=== PATIENT | female | born 1950 | race Caucasian/White ===

== ENCOUNTER → 2017-07-13 12:39 | Outpatient (CLI) | payer MEDICARE, MEDICAID, SELFPAY ==
[2017-07-13 13:20] VITALS: PULSE 63; PULSE 66
--- NOTE | 2017-07-13 14:50 | CT_ITS ---
EXAM: CT LUNG LOW DOSE WO CONTRAST COMPARISON: None HISTORY: Asymptomatic 67-year-old female with 50 pack-year smoking history ORDERING PHYSICIAN: Damion Abel MD PATIENT AGE: 67 years TECHNIQUE: The exam was performed on a GE Light Speed [address] scanner using 2.94 mGy CTDI. A low dose helical CT CHEST was performed on a multi-detector scanner The LDCT was performed in a facility that meets the criteria for the screening program. Data regarding this exam was submitted to ACR which is an approved registry. The order for this exam indicates that it came as a result of a lung cancer screening counseling shard decision-making visit that included all the elements required of such a visit including smoking cessation. The radiologist interpreting this exam meets the [facility] criteria for the LDCT lung cancer screening program. The exam is reported using the Lung-RADS classification scale and reported to the ACR registry. NOTE: This study was performed for the specific purposes of lung cancer screening and is not an alternative to diagnostic chest CT. RADIATION DOSE: CTDI vol(CT dose Index-volume) = 2.94mG DLP (Dose Length Product) = 104.72 mGcm FINDINGS: Indeterminate or Suspicious Lung Nodules(Category3-4B): 5 mm ill-defined nodular opacity superior segment left lower lobe Indeterminate/Non-actionable Nodules(Category2): None Benign nodules(Category1)None LUNG PARENCHYMA Emphysema: Moderate centrilobular emphysematous changes Airways disease: Diffuse bronchial thickening consistent with obstructive chronic bronchitis Fibrosis: Scattered mild fibrotic changes OTHER ANATOMIC REGIONS Lymph Nodes: No enlarged lymph nodes evident. Scattered small nodes are present in the mediastinum and erika Pleura: Unremarkable Cardiac: Coronary artery calcifications OTHER FINDINGS: No other pertinent findings evident IMPRESSION: 1. Lung RADS Category: 3, probably benign 2. Other findings: Centrilobular emphysema with COPD Coronary artery disease RECOMMENDATIONS: 6 month LDCT follow-up
== END ==
PROVIDERS: Family Provider Family Medicine; PCP Family Medicine; Visit Provider Family Medicine
DX: Z87.891 Personal history of nicotine dependence (principal); Z12.2 Encounter for screening for malignant neoplasm of respiratory organs; F17.200 Nicotine dependence, unspecified, uncomplicated; J44.9 Chronic obstructive pulmonary disease, unspecified
CPT/HCPCS: 94060; 94640

== ENCOUNTER → 2017-07-16 10:35 | Outpatient (POV) | payer MEDICARE, MEDICAID, SELFPAY | PROVIDERS: Family Provider Family Medicine; PCP Family Medicine; Visit Provider Nurse Practitioner Acute Care | DX: Z00.00 Encounter for general adult medical examination without abnormal findings (principal) ==

== ENCOUNTER 2017-08-20 11:33 | Day surgery (SDC) | payer MEDICARE, MEDICAID, SELFPAY ==
[2017-08-14 14:46] VITALS: BMI 19.6
[2017-08-20] VITALS (7 sets, daily range): BP systolic 88–154; BP diastolic 58–94; PULSE 63–73; RESP 18–20; TEMP 36.6–37.2; O2SAT 94–98
--- NOTE | 2017-08-20 13:40 | P.PCN_ITS ---
[facility] Procedure Note Procedure Note:: Upper Endoscopy Procedure Report: Esophagogastroduodenoscopy with cold biopsies Endoscopost: Bora Regalado II, MD Referring Physician: Ziyad Abel MD Date of Procedure: August 20, 2017 Equipment: Olympus GIF 180 standard upper endoscope Sedation: MAC sedation Indications: Mrs. Tate is a 67-year-old female with dyspepsia and nausea. She did have panendoscopy with Dr. Juarez Gonzalez M.D. in 2016. The colonoscopy was not completed because of colonic spasticity. She does have chronic nausea which is worse in the mornings. She has COPD. She has some dyspepsia and epigastric abdominal pain. Procedure: Prior to the procedure, a history and physical exam was performed, and patient' s medications and allergies were reviewed. The risks, benefits and alternatives of the sedation and procedure were discussed with the patient. All questions were answered and informed consent was obtained. The patient was brought to the procedure room. Patient identification and proposed procedure were verified by the physician and the nurse. The patient was placed in a left lateral decubitus position and the scope was passed under direct vision. Throughout the procedure, the patient's blood pressure, pulse, and oxygen saturations were monitored continuously. The upper GI endoscopy was accomplished without difficulty. The patient tolerated the procedure well. Findings: The scope was passed directly into the upper esophagus and advanced to the third portion of the duodenum. The post bulbar duodenum and duodenal bulb were normal with normal mucosa and conniventes. The scope was withdrawn through a normal duodenal bulb and pylorus into the stomach. There was bile reflux with linear erythema of the antrum and body consistent with moderate linear reactive gastritis with some erosions. The remainder of the antrum, body and fundus of the stomach were grossly normal. Upon retroflexion there was no hiatal hernia. 2 biopsies were taken in the antrum and along the lesser curvature for histology to rule out gastritis and/or H pylori. The scope was then withdrawn into the esophagus. There was a serrated Z line. 2 biopsies were taken at the Z line to rule out intestinal metaplasia/Hendrix's. There were tertiary contractions and mild dysmotility. The remainder of the esophageal mucosa was normal. Impression: 1. Nonerosive GERD with mild esophageal dysmotility 2. Bile reflux with linear erosive reactive gastritis Plan: I do feel that the patient has functional dyspepsia. I would recommend promotility therapy (metoclopramide) as long as she does not have any former reaction or allergy. I will proceed with colonoscopy for further evaluation.
--- NOTE | 2017-08-20 13:59 | HMH.PROC ---
[facility] Procedure Note Procedure Note:: Colonoscopy Procedure Report: Colonoscopy with snare polypectomy Endoscopist: Bora Regalado II, MD Referring physician: Ziyad Abel MD Date of Procedure: August 20, 2017 Equipment: Olympus 180 variable stiffness pediatric colonoscope Sedation: MAC sedation Indication: Mrs. Tate is a 67-year-old female who is here for follow-up colonoscopy. She did undergo colonoscopy in 2016 (Dr. Juarez Gonzalez M.D.) which was not completed because of severe colonic spasticity. The patient does have some chronic obstipation/constipation and takes MiraLAX. She has had some chronic nausea. She reports no rectal bleeding or family history of colon cancer. She does have a history of colonic polyps. Procedure: Prior to the procedure, a history and physical exam was performed, and patient's medications and allergies were reviewed. The risks, benefits and alternatives of the sedation and procedure were discussed with the patient. All questions were answered and informed consent was obtained. The patient was brought to the procedure room. Patient identification and proposed procedure were verified by the physician and the nurse. The patient was placed in a left lateral decubitus position and the scope was passed under direct vision. Throughout the procedure, the patient's blood pressure, pulse, and oxygen saturations were monitored continuously. The colonoscopy was accomplished without difficulty. The patient tolerated the procedure well. Findings: On digital rectal examination there was normal rectal tone. There were no external hemorrhoids. The colonoscope was introduced through the anal canal to the rectum and advanced to the cecum. The ileocecal valve and appendiceal orifice were identified. The scope was advanced a short distance into the ileum which appeared grossly normal. The scope was then withdrawn into the colon. The cecum, ascending and transverse colon and mucosa were grossly normal. There were 2 diminutive 5 mm polyps in the descending colon removed via cold snare polypectomy. There were scattered diverticuli throughout the descending and sigmoid colon (LEFT colon). The rectum itself was normal. Upon retroflexion within the rectum there were grade 1 internal hemorrhoids. Impression: 1. Diminutive descending colon polyps ?2 2. Left-sided diverticulosis 3. Grade 1 internal hemorrhoids Plan: I will follow up the polyp pathology and recommend repeat colonoscopy again in 5-10 years based upon the polyp histology. I would encourage fiber supplementation on a long-term daily maintenance basis.
--- NOTE | 2017-08-20 14:02 | P.PCN_ITS ---
[facility] Procedure Note Procedure Note:: Colonoscopy Procedure Report: Colonoscopy with snare polypectomy Endoscopist: Bora Regalado II, MD Referring physician: Ziyad Abel MD Date of Procedure: August 20, 2017 Equipment: Olympus 180 variable stiffness pediatric colonoscope Sedation: MAC sedation Indication: Mrs. Tate is a 67-year-old female who is here for follow-up colonoscopy. She did undergo colonoscopy in 2016 (Dr. Juarez Gonzalez M.D.) which was not completed because of severe colonic spasticity. The patient does have some chronic obstipation/constipation and takes MiraLAX. She has had some chronic nausea. She reports no rectal bleeding or family history of colon cancer. She does have a history of colonic polyps. Procedure: Prior to the procedure, a history and physical exam was performed, and patient' s medications and allergies were reviewed. The risks, benefits and alternatives of the sedation and procedure were discussed with the patient. All questions were answered and informed consent was obtained. The patient was brought to the procedure room. Patient identification and proposed procedure were verified by the physician and the nurse. The patient was placed in a left lateral decubitus position and the scope was passed under direct vision. Throughout the procedure, the patient's blood pressure, pulse, and oxygen saturations were monitored continuously. The colonoscopy was accomplished without difficulty. The patient tolerated the procedure well. Findings: On digital rectal examination there was normal rectal tone. There were no external hemorrhoids. The colonoscope was introduced through the anal canal to the rectum and advanced to the cecum. The ileocecal valve and appendiceal orifice were identified. The scope was advanced a short distance into the ileum which appeared grossly normal. The scope was then withdrawn into the colon. The cecum, ascending and transverse colon and mucosa were grossly normal. There were 2 diminutive 5 mm polyps in the descending colon removed via cold snare polypectomy. There were scattered diverticuli throughout the descending and sigmoid colon (LEFT colon). The rectum itself was normal. Upon retroflexion within the rectum there were grade 1 internal hemorrhoids. Impression: 1. Diminutive descending colon polyps ?2 2. Left-sided diverticulosis 3. Grade 1 internal hemorrhoids Plan: I will follow up the polyp pathology and recommend repeat colonoscopy again in 5 -10 years based upon the polyp histology. I would encourage fiber supplementation on a long-term daily maintenance basis.
--- NOTE | 2017-08-20 16:51 | HMH.ANESCL ---
[facility] Anesthesia Checklist - Patient Identification Patient Identification: Arm Band - Structural Data Admitted From: Home Planned Operative Procedure/s: egd/colonoscopy Consent for Planned Operative Procedure(s) Verified: Yes Verified Documents: Surgical Consent, History and Physical - NPO Status Verified Time NPO: 00:00 - Additional verifications Anesthesia Reactions: No - Airway Assessment C-Spine Mobility Assessed: Yes (mp2) TMJ Mobility Assessed: Yes Dentition: Edentulous - Neurological Assessment Level of Consciousness: Awake, Alert - Anesthesia Plan Anesthesia Risk discussed: Yes Anesthesia Plan: Verified ASA Class: III Anesthesia Type: MAC [facility] Anesthesia HX Medical History: Reports:: Gastroesophageal Reflux Disease(GERD), Hyperlipidemia, Hypertension, Lung Disease (copd) Denies:: Diabetes Mellitus Type 1, Diabetes Mellitus Type 2, Internal Pacemaker, Seizures Other Surgeries: Yes: Thyroidectomy. No: Pacemaker
== END 2017-08-20 15:00 | disposition home or self-care (01) ==
LOC: OUTP 11:35
PROVIDERS: Family Provider Family Medicine; PCP Family Medicine; Visit Provider Internal Medicine Gastroenterology
PROC: 0DJ08ZZ Inspection of Upper Intestinal Tract, Via Natural or Artificial Opening Endoscopic (ICD-10-PCS; CPT 43235; principal; 2017-08-20 12:30)
DX: Z12.11 Encounter for screening for malignant neoplasm of colon (principal); K63.5 Polyp of colon; K57.30 Diverticulosis of large intestine without perforation or abscess without bleeding; K64.0 First degree hemorrhoids; Z86.010 Personal history of colon polyps; K21.9 Gastro-esophageal reflux disease without esophagitis; K22.4 Dyskinesia of esophagus; K29.60 Other gastritis without bleeding
CPT/HCPCS: 43239; 45380; 88305

== ENCOUNTER → 2017-09-26 09:51 | Outpatient (CLI) | payer MEDICARE, MEDICAID, SELFPAY ==
--- NOTE | 2017-09-26 09:54 | MM_ITS ---
MM Dig screening mamm BI w/CAD CAD Screening COMPARISON: Digital mammograms 07/29/2013 and additional views left breast 08/15/2013 INDICATION: There is no personal or family history of breast cancer. There is been previous biopsy right breast for benign disease. TECHNIQUE: Standard CC and MLO images were obtained. R2 CAD reviewed. FINDINGS: Diffuse fibroglandular densities are seen in both breast slightly more prominent right breast than left. There are few benign-appearing calcination is in each breast and there is arterial calcification left breast. There also is a mole marker left breast. There is no suspicious lesion and there are no suspicious microcalcifications. IMPRESSION: Moderate diffuse breast density with no suspicious lesion seen BI-RADS Category: 2 Benign Finding(s) RECOMMENDED FOLLOW-UP: 1YR - 1 YEAR FOLLOW-UP (A letter has been sent to the patient regarding results of the study.)
== END ==
PROVIDERS: Family Provider Family Medicine; PCP Family Medicine; Visit Provider Family Medicine
DX: Z12.31 Encounter for screening mammogram for malignant neoplasm of breast (principal)
CPT/HCPCS: 77067

== ENCOUNTER → 2017-10-15 13:04 | Outpatient (POV) | payer MEDICARE, MEDICAID, SELFPAY | PROVIDERS: Visit Provider Nurse Practitioner Acute Care | DX: Z00.00 Encounter for general adult medical examination without abnormal findings (principal) ==

== ENCOUNTER → 2017-12-17 13:09 | Outpatient (POV) | payer MEDICARE, MEDICAID, SELFPAY | PROVIDERS: Visit Provider Nurse Practitioner Acute Care | DX: Z00.00 Encounter for general adult medical examination without abnormal findings (principal) ==

== ENCOUNTER → 2017-12-26 10:04 | Outpatient (CLI) | payer MEDICARE, MEDICAID, SELFPAY ==
--- NOTE | 2017-12-26 10:13 | NM_ITS ---
HEPATOBILIARY SCAN WITH FATTY MEAL/ENSURE ORDERING PHYSICIAN : Wen Reynoso PATIENT AGE: 67 years GENDER: Female HISTORY: Right upper quadrant pain and nausea Following 8.02 millicuries Tc Choletec, images of the RUQ were obtained. There is prompt uptake of radionuclide by the liver which is grossly unremarkable. Small bowel is visualized. This initial portion of the study is normal. The gallbladder was allowed to fill out to 60 minutes. Fatty meal/1 can of ensure over administered with imaging performed over 60 minutes minutes. Thereafter. The obtain data was analyzed and reveals a 82% % gallbladder ejection fraction (normal greater than 50%; borderline 35-50%). This is normal value. No pain after fatty meal . Visual inspection which supports that there is adequate contraction of the gallbladder as well as, at least over 50-60% IMPRESSION: Normal functioning gallbladder. 82% % % gallbladder ejection fraction by computer analysis. No pain with fatty meal.
--- NOTE | 2017-12-26 10:32 | HMH.ITSHM ---
LEVOTHYROXINE SYMBICORT PANTOFRAZOLE FLUTICASONE LISINOPRIL ALFRAZOLAM IPRAT-ALBUT VENTOLIN METOCLOFRAMIDE ONDANSETRON BUSPIRONE ZYRTEC FIBER MIRALAX
== END ==
PROVIDERS: Family Provider Family Medicine; PCP Family Medicine; Visit Provider Nurse Practitioner Acute Care
DX: R10.11 Right upper quadrant pain (principal)
CPT/HCPCS: 78226; A9537

== ENCOUNTER → 2018-03-29 12:25 | Outpatient (CLI) | payer MEDICARE, MEDICAID, SELFPAY ==
--- NOTE | 2018-03-29 12:29 | CT_ITS ---
EXAM: CT LUNG LOW DOSE WO CONTRAST COMPARISON: None HISTORY: 3/4 pack per day smoker with overall 30 pack-year history. Currently smoking. Patient with no signs or symptoms of lung cancer FINDINGS: No suspicious mass or lung nodule. LUNG PARENCHYMA Hyperexpansion. COPD. Centrilobular emphysematous changes throughout . Mild mild fibrotic changes towards the lung bases bilaterally most evident towards right base, right posterior sulcus. Slight chronic blunting at the posterior sulcus. Airways disease: Minimal thickening of central airways & airways infrahilar region bilateral. No focal pneumonia. . OTHER ANATOMIC REGIONS Lymph Nodes: No significant enlarged lymph nodes evident. Scattered small nodes are present in the mediastinum and erika Cardiac: Unr heart normal size.. Coronary artery calcifications right coronary and most pronounced left main and most dense, pronounced at proximal LAD,. OTHER FINDINGS: Upper abdomen on limited views. Generous left lobe extends beneath the left hemidiaphragm with partially imaged spleen upper normal size . Generous extrarenal pelvis on right stable since 2009 abdomen ---IMPRESSION:------- 1. COPD with significant emphysematous changes clearly evident. .Chronic changes . No active disease evident . Stable mild chronic blunting right CP angle and posterior sulcus 2.. No suspicious lung mass or nodule. Recommend ongoing follow-up low-dose screening chest CT one year.. 3..Notable Coronary artery calcifications-most, pronounced at LAD including proximal LAD.. (Consider further evaluation with calcium scoring,; or possible cardiac nuclear stress scant-particularly if any symptoms) Chest follow-up RECOMMENDATIONS: 12 monthd LDCT follow-up ======= TECHNIQUE: The exam was performed on a GE Light Speed [address] scanner using 3.0 mGy CTDI. A low dose helical CT CHEST was performed on a multi-detector scanner. All CT scans at this facility use one or more dose reduction techniques, viz.: automated exposure control, ma/kV adjustment per patient size (including targeted exams where dose is matched to indication, i.e. head) or iterative reconstruction technique. The LDCT was performed in a facility that meets the criteria for the screening program. Data regarding this exam was submitted to ACR which is an approved registry. The order for this exam indicates that it came as a result of a lung cancer screening counseling shard decision-making visit that included all the elements required of such a visit including smoking cessation. The radiologist interpreting this exam meets the CMS criteria for the LDCT lung cancer screening program. The exam is reported using the Lung-RADS classification scale and reported to the ACR registry. NOTE: This study was performed for the specific purposes of lung cancer screening and is not an alternative to diagnostic chest CT. RADIATION DOSE: CTDI vol(CT dose Index-volume) = 2.9mGy DLP (Dose Length Product) = 106.95 mGy-cm
== END ==
PROVIDERS: PCP Family Medicine; Visit Provider Family Medicine
DX: Z12.2 Encounter for screening for malignant neoplasm of respiratory organs (principal); Z87.891 Personal history of nicotine dependence

== ENCOUNTER → 2019-03-03 13:59 | Outpatient (CLI) | payer MEDICARE, MEDICAID, SELFPAY ==
--- NOTE | 2019-03-03 14:08 | XR_ITS ---
PROCEDURE: XR FOOT RT MIN 3V CLINICAL INDICATION: RT FOOT PAIN COMPARISON: No exams were available for comparison FINDINGS: No fracture or dislocation. No lytic or blastic change. There is normal mineralization. The joint spaces are well-preserved. No significant degenerative/arthritic changes. No erosive changes evident. Other findings:None. IMPRESSION: No acute findings. Dictated by: Kasi Flores 03/03/2019 14:38 Electronically signed by Kasi Flores in [place] 03/03/2019 14:38
== END ==
PROVIDERS: PCP Family Medicine; Visit Provider Nurse Practitioner
DX: M79.671 Pain in right foot (principal)
CPT/HCPCS: 73630

== ENCOUNTER → 2019-04-10 08:24 | Outpatient (CLI) | payer MEDICARE, MEDICAID, SELFPAY ==
--- NOTE | 2019-04-10 08:27 | CT_ITS ---
PROCEDURE: CT LUNG SCREENING CLINICAL INDICATION: CURRENT TOBACCO USE 52 the the pack-year smoking history, asymptomatic for lung cancer COMPARISON: LUNGSCREEN CT lung screening from 03/29/2018 TECHNIQUE: The exam was performed on a GE Light Speed [address] scanner using the the mGy CTDI. A low dose helical CT CHEST was performed on a multi-detector scanner. All CT scans at the facility use one or more dose reduction, viz: automated exposure control, ma/kV adjustment per patient size (including targeted exams where dose is matched to indication, i.e. head), or iterative reconstruction technique. The LDCT was performed in a facility that meets the criteria for the screening program. Data regarding this exam was submitted to ACR which is an approved registry. The order for this exam indicates that it came as a result of a lung cancer screening counseling shard decision-making visit that included all the elements required of such a visit including smoking cessation. The radiologist interpreting this exam meets the CMS criteria for the LDCT lung cancer screening program. The exam is reported using the Lung-RADS classification scale and reported to the ACR registry. NOTE: This study was performed for the specific purposes of lung cancer screening and is not an alternative to diagnostic chest CT. RADIATION DOSE: CTDI vol(CT dose Index-volume) = 2.90mG DLP (Dose Length Product) = 105.25 mGcm FINDINGS: COPD/centrilobular emphysema. No suspicious pulmonary nodules are evident. There are coronary artery calcifications. OTHER FINDINGS: No other pertinent findings evident. IMPRESSION: Lung rads category 1- Recommend annual LDCT screening exam Dictated by: Pino Parker MD 04/11/2019 12:31 Electronically signed by Pino Parker MD in [place] 04/13/2019 07:59
== END ==
PROVIDERS: PCP Family Medicine; Visit Provider Family Medicine
DX: Z87.891 Personal history of nicotine dependence (principal); Z12.2 Encounter for screening for malignant neoplasm of respiratory organs; J44.9 Chronic obstructive pulmonary disease, unspecified
CPT/HCPCS: 94060; 94729

== ENCOUNTER → 2019-04-25 07:19 | Outpatient (CLI) | payer MEDICARE, MEDICAID, SELFPAY ==
--- NOTE | 2019-04-25 | CA_ITS ---
APPROVED REPORT Exam: Pharmacologic Technologist: Paulette Haile Ht: 5 ft 3 in Wt: 96 lbs BSA: 1.41 m2 HR: 68 bpm BP: 173/95 mmHg Indications: CP, SOB Medical History Medications: Lisinopril,,,,, Levothyroxine,,,,, Xanax,,,,, Pantoprazole,,,,, Flonase,,,,, SyMBICORT,,,,, Albuterol,,,,, ZYRTEC,,,,, Fiber,,,,, Zofran,,,,, AmiTRITYLINE,,,,, Allergies: Sulfa Cardiac Risk Factors: HTN, FHX of CAD, Smoking Stress Test Details Test: LEXISCAN HR Resting HR: 88 bpm Max Heart Rate (APMHR): 152 bpm Max HR Achieved: 96 bpm Target HR (85% APMHR): 129 bpm % of APMHR: 63 Recovery HR: 82 bpm BP Resting BP: 173/95 mmHg Max BP: 188/98 mmHg Recovery BP: 186.0/94.0 mmHg ECG Resting ECG: NSR Recovery ST Deviation: 1.5 mm Clinical Reason for Termination: Completed Protocol Exercise duration: 04:23 min Highest Stage Achieved: Stress ECG Conclusion No symptoms with rare PVC's. Less than 1.5mm ST Segment Changes. Non-Diagnostic. Gave patient neb treatment with Albuterol after test. Electronically signed by : Moshe Mcelroy, 04/25/2019 12:59:02
--- NOTE | 2019-04-25 07:49 | NM_ITS ---
APPROVED REPORT Exam: Nuclear Stress Test Indication: chest pain, short of breath, fatigue Patient Location: Outpatient Stress Tech: Paulette LunaMic [place] Tech:Florence Cruz HANNAHBrandon RT(R)(N) Ht: 5 ft 3 in Wt: 96 lbs Bra Size: 36 A HR: 68 bpm BP: 173/95 mmHg BSA: 1.41 m2 BMI: 17.0 History: chest pain, short of breath, fatigue Procedure: Patient received a 0.4 mg of intravenous Lexiscan, resting heart rate 68 bpm, resting blood pressure 173/95 mmHg, with Lexiscan maximum heart rate achived was 93 bpm which is Less than 85 % of the maximum predicted heart rate and blood pressure was 182/102 mmHg. Electrocardiogram Resting EKG showed sinus rhythm, with Lexiscan less than 1.[address] segment depression noted from the baseline EKG. The EKG portion of the Lexiscan Myoview is nondiagnostic. Cardiac Stress and Resting SPECT Images: Cardiac Stress and Resting SPECT images were obtained using technetium 99m Myoview 32.7 mCi stress and 10.39 mCi at rest. Gated SPECT with analysis of segmental wall motion and calculation of the ejection fraction also done. Cardiac stress and resting SPECT images show uniform myocardial activity without segmental perfusion abnormality, computer derived ejection fraction is over 65% with no regional wall motion abnormality, right ventricle is normal size and contractility. Conclusion: 1. The EKG portion of the Lexiscan Myoview is nondiagnostic. 2. No scintigraphic evidence of reversible ischemia seen, computer derived ejection fraction is over 65% with no regional wall motion abnormality, right ventricle is normal size and contractility. 3. Normal Lexiscan Myoview study. Electronically signed by : Moshe Mcelroy, 04/25/2019 13:01:35
--- NOTE | 2019-04-25 11:05 | HMH.ITSHM ---
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 [] levothyroxine pantoprozole lisinopril symbicort amitritlyine preodnisone fluticasone zrytec
== END ==
PROVIDERS: PCP Family Medicine; Visit Provider Nurse Practitioner
DX: R07.9 Chest pain, unspecified (principal); I25.10 Atherosclerotic heart disease of native coronary artery without angina pectoris
CPT/HCPCS: 78452; 93017; A9502; J2785

== ENCOUNTER → 2019-05-09 13:29 | Outpatient (CLI) | payer MEDICARE, MEDICAID, SELFPAY ==
--- NOTE | 2019-05-09 13:31 | CA_ITS ---
APPROVED REPORT Clinical Information Systems Director: Adelina Lam RVT Laterality: Bilateral Study Quality: Good Indications: TIA and left arm numbness Risk Factors Hypertension: Smoking Doppler Spectral Velocity Analysis ECA (R) 64.80/14.30 cm/s ECA (L) 60.50/14.60 cm/s dICA (R) 47.00/18.30 cm/s dICA (L) 45.40/17.90 cm/s Donna (R) 49.40/16.50 cm/s Donna (L) 48.60/19.30 cm/s pICA (R) 47.20/15.20 cm/s pICA (L) 41.10/15.00 cm/s dCCA (R) 52.20/14.10 cm/s dCCA (L) 60.40/18.00 cm/s pCCA (R) 54.60/14.50 cm/s pCCA (L) 51.90/13.00 cm/s Vert (R) 30.20/9.90 cm/s Vert (L) 59.40/16.70 cm/s ICA/CCA 0.95 ICA/CCA 0.81 Findings Study suggests normal bilateral internal cartoid arteries, no evidence of stenosis. Antegrade flow seen bilateral vertebral arteries. Small left thyroid cyst Conclusion Study suggests normal bilateral internal cartoid arteries, no evidence of stenosis. Antegrade flow seen bilateral vertebral arteries. Electronically signed by : Pino Parker MD 05/09/2019 17:17:01
--- NOTE | 2019-05-09 13:31 | CA_ITS ---
APPROVED REPORT EXAM: Comprehensive 2D, Doppler, and color-flow Echocardiogram Cash Processing Specialist: Adelina Lam RVT Ht: 5 ft 3 in Wt: 99lbs BSA: 1.43 BP: 121/84 mmHg Indications: Shortness of Breath, CVA/TIA COPD, Shortness of Breath, CVA/TIA, Dizziness and Vertigo, Dyspnea,Smoker 2D Dimensions LVOT 1.56 cm (M/F) 1.5-2.5 M-Mode Dimensions RVDd 1.64 cm (0.9-2.6) LA Diam 3.30 cm (1.9-4.0) LVDd 4.25 cm (3.5-5.7) Ao Diam 2.60 cm (2.0-3.7) LVDs 2.55 cm (3.5-5.7) AV Cusp 1.70 cm (1.5-2.6) IVSd 0.74 cm (0.6-1.1) PWd 0.94 cm (0.6-1.1) EF (Teich) 71.00% FS 40.00% EDV (Teich) 80.80 mL ESV (Teich) 23.40 mL LV Diastology E/A Ratio 0.76 Mitral Valve MV A Velocity 81.00 (40-130 cm/s) Left Ventricle Left atrium is mildly enlarged, left ventricle is normal size, mild concentric left ventricular hypertrophy, visually estimated ejection fraction 55% with no regional wall motion abnormality, grade 1 diastolic dysfunction seen without tissue Doppler evidence of raise left atrial pressure. Right Ventricle Right atrium and right ventricular normal size and contractility. Aortic Valve Aortic valve is minimally thickened and fibrosed, there is no aortic stenosis or aortic insufficiency. Mitral Valve Mitral valve is grossly normal, there is mild mitral regurgitation. Tricuspid Valve Tricuspid valve is grossly normal, there is mild tricuspid regurgitation. Pulmonic Valve Pulmonic valve is poorly visualized. Great Vessels Aortic root is normal size. Pericardium No significant pericardial effusion noted. Conclusion 1. Mildly enlarged left atrium, normal left ventricular size, mild concentric left ventricular hypertrophy, visually estimated ejection fraction 55% with no regional wall motion abnormality, grade 1 diastolic dysfunction seen without tissue Doppler evidence of raise left atrial pressure. 2. Mild mitral and tricuspid regurgitation. 3. No significant pericardial effusion noted. Electronically signed by : Moshe Mcelroy, 05/11/2019 19:54:14
== END ==
PROVIDERS: PCP Family Medicine; Visit Provider Nurse Practitioner Family
DX: G45.9 Transient cerebral ischemic attack, unspecified (principal); R20.0 Anesthesia of skin; R06.09 Other forms of dyspnea
CPT/HCPCS: 93306; 93880

== ENCOUNTER → 2019-06-09 10:17 | Outpatient (CLI) | payer MEDICARE, MEDICAID, SELFPAY ==
--- NOTE | 2019-06-09 10:24 | XR_ITS ---
PROCEDURE: XR LUMBAR SPINE MIN 4V CLINICAL INDICATION: LOW BACK PAIN COMPARISON: No exams were available for comparison FINDINGS: There is mild lumbar scoliosis convex left. There is severe degenerative disc disease at L2-L3 with moderate to severe degenerative disc disease at L1-L2. There is retrolisthesis of L2 of approximately 7 mm. There is diffuse vascular calcification. Mild degenerative disc disease noted at L3-L4. No acute fracture or dislocation. No lytic changes apparent IMPRESSION: Degenerative changes with scoliosis as described above Dictated by: Pino Parker MD 06/09/2019 10:47 Electronically signed by Pino Parker MD in [facility] 06/09/2019 10:47
== END ==
PROVIDERS: PCP Family Medicine; Visit Provider Family Medicine
DX: M54.5 Low back pain (principal)
CPT/HCPCS: 72110

== ENCOUNTER → 2019-06-18 13:52 | Outpatient (CLI) | payer MEDICARE, MEDICAID, SELFPAY ==
--- NOTE | 2019-06-18 13:54 | XR_ITS ---
PROCEDURE: XR DEXA AXIAL SKELETON CLINICAL HISTORY: OSTEOPENIA COMPARISON: No exams were available for comparison FINDINGS: The density of the left hip is 0.482 grams/centimeters sq with T-score -3.8 indicating osteoporosis. Right hip density has a T-score of -2.8. L1-L4 density T-score is -1.1 IMPRESSION: Osteoporosis with high fracture risk. Treatment advised. Suggest follow-up exam in 1 year. Dictated by: Pino Parker MD 06/18/2019 17:45 Electronically signed by Pino Parker MD in [facility] 06/18/2019 17:45
== END ==
PROVIDERS: PCP Family Medicine; Visit Provider Family Medicine
DX: M81.0 Age-related osteoporosis without current pathological fracture (principal)
CPT/HCPCS: 77080

== ENCOUNTER 2019-10-28 09:40 | Emergency (ER) | payer MEDICARE, MEDICAID, SELFPAY ==
[2019-10-28 09:43] VITALS: BP 156/96; PULSE 101; RESP 20; TEMP 36.4; O2SAT 97; BMI 16.9
--- NOTE | 2019-10-28 10:15 | HMH.EDANIB ---
ED Disposition Clinical Impression: Bite by animal Disposition: Home, Self-Care Condition on Discharge: Good Instructions: Animal Bites Referrals: Damion Abel MD [Primary Care Provider] - - Critical Care Critical Care Time: No Attestation: On 10/28/19, the high probability of a clinically significant, sudden or life threatening deterioration of the following system(s) required my full and direct attention, intervention and personal management. The time I documented below is in addition to time spent performing reported procedures but includes the following listed in this critical care notation. Medical Decision Making - Medical Records Medical records reviewed: Yes: I reviewed the patient's medical records. - Azam Inquiry Pt receiving controlled substance: No - Lab Data Lab results reviewed: Yes: I reviewed the patient's lab results. Animal Bite HPI - General Chief Complaint: Animal Bite Stated Complaint: AO 10/28/19 630 bat bite left ring finger Time Seen by Provider: 10/28/19 10:15 Mode of Arrival: Ambulatory Source of Information: Patient - History of Present Illness HPI narrative: 69-year-old female presents to the ED after being bit by a bat on the index finger of her left hand. Patient states that the bat swept down from the zia landed on her hand and bit her finger. She states that she did break the skin. Otherwise patient has no other injuries. - Related Data Home Medications Medication Instructions Recorded Confirmed ALPRAZolam [Xanax 0.5mg tab] 0.5 mg PO NEEDED PRN 08/14/17 06/18/19 Albuterol Sulfate [Albuterol HFA 1 - 2 puffs IH Q4-6H PRN 08/14/17 06/18/19 Inhaler] Budesonide/Formoterol Fumarate 10.2 gm IH DAILY 08/14/17 06/18/19 [Symbicort 160-4.5 Mcg Inhaler] Cetirizine HCl [Zyrtec] 10 mg PO DAILY 08/14/17 06/18/19 Levothyroxine Sodium 50 mcg PO DAILY 08/14/17 06/18/19 [Levothyroxine 50mcg (0.05mg) Tab] Pantoprazole Sodium [Protonix 40mg 40 mg PO DAILY 08/14/17 06/18/19 tablet] Psyllium Husk [Fiber] 0.52 gm PO DAILY 08/14/17 06/18/19 polyethylene glycoL 3350 [Miralax 17 gm PO DAILY 08/14/17 06/18/19 17gm Packet] amitriptyline 25 mg tablet 25 mg PO QHS tab 06/06/19 06/18/19 gabapentin 100 mg capsule 100 mg PO TID cap 06/06/19 06/18/19 lisinopril 20 mg tablet 20 mg PO BID 06/18/19 06/18/19 Previous Rx's Medication Instructions Recorded metoprolol succinate 25 mg 12.5 mg PO DAILY #30 tab 05/07/19 tablet,extended release 24 hr amlodipine 5 mg tablet 5 mg PO DAILY #30 tab 10/13/19 Allergies Allergy/AdvReac Type Severity Reaction Status Date / Time Sulfa (Sulfonamide Allergy Unknown Verified 06/18/19 13:13 Antibiotics) [SULFA (SULFONAMIDE ANTIBIOTICS)] [facility] History - Hepatitis A Screen Attestation statement:: This patient has been screened for Hepatitis A risk factors. I have reviewed the patient's past medical history: Yes Medical History: Reports:: Chronic Obstructive Pulmonary Disease (COPD), Gastroesophageal Reflux Disease(GERD), Hyperlipidemia, Hypertension, Lung Disease Denies:: Diabetes Mellitus Type 1, Diabetes Mellitus Type 2, Internal Pacemaker, Seizures Other Medical History: Reports: Arthritis Other Surgeries: Yes: Colonoscopy, Thyroidectomy (partial ). 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
--- NOTE | 2019-10-28 11:38 | PC.NURSE ---
pt reports transportation problems with getting to [facility] for further vaccination. States she normally walks to Dr. Abernathy office in [place]. Spoke with Dr. Abel to see if pt could receive rabies vaccination in his office in [place], [facility] they normally refer pts to the health department for that. Spoke with Health department staff, awaiting a call back after they check with management about being able to provide vaccination.
--- NOTE | 2019-10-28 11:50 | PC.NURSE ---
Jennifer the manager marketing at the [facility] called back stating they would not be able to give rabies vaccine series to pt. She recommended I contact [employer] service for transport for pt.
[2019-10-28 11:51] VITALS: BP 150/95; PULSE 65; RESP 20; TEMP 36.4; O2SAT 100
--- NOTE | 2019-10-28 12:03 | PC.NURSE ---
contacted [facility] to advise of situation, Marii gave me the number for [facility] [employer] and stated they generally are dispatched through [employer]. Contacted [facility] transportation who then gave me the number to call for [employer] to see if pt qualifies for transportation.
--- NOTE | 2019-10-28 12:10 | PC.NURSE ---
spoke with [employer] states they are not able to transport pt r/t pt has medicare insurance as her primary
--- NOTE | 2019-10-28 12:19 | PC.NURSE ---
waiting plan consultant back from care management to see if any other resources are available for pt to receive follow up vaccination
--- NOTE | 2019-10-28 13:34 | SW/DCPLANNER ---
CALLED THE FAMILY OF THIS PATIENT ABOUT GETTING BACK TO GET HER SHOTS FOR THE NEXT 3-TODAYS... PATIENT WASN'T SURE SHE WOULD HAVE A WAY TO GET BACK HERE.. I SPOKE WITH THE DAUGHTER IN LAW AND SHE SAID SHE IS WORKING WITH FAMILY TO PROVIDE HER A RIDE BACK FOR THE NEXT 3 DAYS....
== END 2019-10-28 11:51 | disposition home or self-care (01) ==
PROVIDERS: Emergency Provider Family Medicine; PCP Family Medicine
DX: S61.235A Puncture wound without foreign body of left ring finger without damage to nail, initial encounter (principal); W55.81XA Bitten by other mammals, initial encounter; Y92.017 Garden or yard in single-family (private) house as the place of occurrence of the external cause; I10 Essential (primary) hypertension; E78.5 Hyperlipidemia, unspecified; K21.9 Gastro-esophageal reflux disease without esophagitis; E03.9 Hypothyroidism, unspecified; F17.210 Nicotine dependence, cigarettes, uncomplicated; J44.9 Chronic obstructive pulmonary disease, unspecified; Z88.2 Allergy status to sulfonamides
CPT/HCPCS: 90375; 90471; 90675; 96372; 99281

== ENCOUNTER 2019-12-16 09:31 | Emergency (ER) | payer MEDICARE, MEDICAID, SELFPAY ==
[2019-12-16 09:26] VITALS: BP 158/103; PULSE 81; RESP 20; TEMP 36.6; O2SAT 94; BMI 15.9
--- NOTE | 2019-12-16 09:31 | HMH.EDGENADL ---
ED Disposition Clinical Impression: Pulmonary infiltrate, Dysuria, Weakness Disposition: Home, Self-Care Condition on Discharge: Good Additional Instructions: Zithromax as prescribed. See Dr. Abel in the office on . Return to the emergency room if worsening symptoms. Prescriptions: Azithromycin [Zithromax 250mg tab] 250 mg PO DAILY #4 tab Transmission Status: Received by [facility] Referrals: Damion Abel MD [Primary Care Provider] - - Critical Care Critical Care Time: No Attestation: On , the high probability of a clinically significant, sudden or life threatening deterioration of the following system(s) required my full and direct attention, intervention and personal management. The time I documented below is in addition to time spent performing reported procedures but includes the following listed in this critical care notation. Medical Decision Making - Medical Records Medical records reviewed: Yes: I reviewed the patient's medical records. - Azam Inquiry Pt receiving controlled substance: No Vital Signs: 12/16/19 09:26 12/16/19 10:23 12/16/19 10:30 Temperature 97.9 F Temperature Source Oral Pulse Rate Pulse Rate [Left Radial] 81 78 81 Respiratory Rate 20 18 18 Blood Pressure Blood Pressure [Right Arm] 158/103 H 147/96 H 136/62 Blood Pressure Mean [Right Arm] 121 113 86 Blood Pressure Source Blood Pressure Source [Right Arm] Automatic Cuff Automatic Cuff Blood Pressure Position Blood Pressure Position [Right Arm] Sitting Sitting Sitting 02 Sat by Pulse Oximetry 94 L 95 93 L Oxygen Delivery Method Room Air Room Air Room Air 12/16/19 11:22 12/16/19 12:35 Temperature 98.3 F Temperature Source Oral Pulse Rate 68 Pulse Rate [Left Radial] 68 Respiratory Rate 18 18 Blood Pressure 151/92 H Blood Pressure [Right Arm] 151/92 H Blood Pressure Mean [Right Arm] 111 Blood Pressure Source Automatic Cuff Blood Pressure Source [Right Arm] Blood Pressure Position Sitting Blood Pressure Position [Right Arm] Sitting 02 Sat by Pulse Oximetry 98 Oxygen Delivery Method Room Air - Lab Data Lab results reviewed: Yes: I reviewed the patient's lab results. Lab Results 12/16/19 09:29: Urine Color Yellow, Urine Appearance Clear, Urine pH 8.0, Ur Specific Fletcher 1.015, Urine Protein Trace, Urine Glucose (UA) Negative, Urine Ketones Negative, Urine Blood 1+, Urine Nitrate Negative, Urine Bilirubin Negative, Urine Urobilinogen 0.2, Ur Leukocyte Esterase Negative, Urine RBC 3-5, Urine WBC 3-5, Ur Squamous Epith Cells 3-5, Amorphous Sediment 2+, Urine Bacteria Trace 12/16/19 09:29: WBC 10.1, RBC 5.54 H, Hgb 17.2 H, Hct 50.7 H, MCV 91.5, MCH 31.1, MCHC 34.0, RDW 13.3, Plt Count 260, MPV 8.2, Neut % (Auto) 73.2, Lymph % (Auto) 19.4, [place] % (Auto) 3.6, Eos % (Auto) 3.2, Baso % (Auto) 0.6, Neut # (Auto) 7.4, Lymph # (Auto) 2.0, Win[place] # (Auto) 0.4, Eos # (Auto) 0.3, Baso # (Auto) 0.1 12/16/19 09:29: Sodium 139, Potassium 3.8, Chloride 96 L, Carbon Dioxide 29, Anion Gap 17.8 H, BUN 8, Creatinine 0.60, Estimated Creat Clear 35, Estimated GFR 99, Est GFR ( Amer) 120, Glucose 116 H, Calcium 10.2, Total Bilirubin 0.7, AST 27, ALT 24, Alkaline Phosphatase 112, Total Protein 9.3 H, Albumin 5.3 H, Globulin 4.0 H, Albumin/Globulin Ratio 1.3 12/16/19 09:29: Troponin I < 0.01, TSH 0.17 L Result diagrams: 12/16/19 09:29 12/16/19 09:29 Orders (Tests/Meds): ED MEDICATIONS Discontinued Medications Generic Name Dose Route Start Last Admin Trade Name Freq PRN Reason Stop Dose Admin Azithromycin 500 mg 12/16/19 12:19 12/16/19 12:24 Zithromax 250mg Tablet PO 12/16/19 12:20 500 mg ONCE ONE Administration Protocol Sodium Chloride 1,000 mls @ 999 mls/hr 12/16/19 09:45 12/16/19 09:45 Sod Chlor 0.9% 1000ml Bag IV 12/16/19 10:45 999 mls/hr .[id number] RAFAELA Administration ORDERS Category Date Time Status Blood Culture Stat Bennett
[2019-12-16 09:36] LABS: Microscopic, Urine URINE MICROSCOPIC (MICROSCOPIC)
[2019-12-16 09:37] LABS: Appearance,Urine CLEAR (Clear); Bilirubin,Urine Negative (Negative); Blood, Urine 1+ (Negative); Color,Urine YELLOW (Yellow); Glucose,Urine (UA) Negative (Negative); Ketones,Urine Negative (Negative); Leukocyte Esterase,Urine Negative (Negative); Nitrate,Urine Negative (Negative); Protein,Urine TRACE (Negative); Specific Gravity, Urine 1.015 (1.005-1.030); Urobilinogen,Urine 0.2 EU/dl (0.2)
--- NOTE | 2019-12-16 09:38 | XR_ITS ---
PROCEDURE: XR CHEST PORTABLE CLINICAL HISTORY: cp Chest pain COMPARISON: CXR CHEST(2 VIEWS-NOT PORTABLE) from 09/29/2015 XR CHEST 2V from 02/22/2019 CT ABDOMEN PELVIS WO CON from 12/16/2019 FINDINGS: The cardiomediastinal silhouette and pulmonary vascularity are within normal limits. Patchy density is present in the right lower lung zone consistent with an area of atelectasis or infiltrate as seen on the abdomen CT. No acute bony abnormalities. IMPRESSION: Atelectasis or infiltrate in the right lower lung zone Dictated by: Pino Parker MD 12/16/2019 12:09 Electronically signed by Pino Parker MD in [place] 12/16/2019 12:09
[2019-12-16 09:39] LABS: Basophils # 0.1 K/mm3 (0-0.2); Basophils % 0.6 % (0.1-2.0); Eosinophils # 0.3 K/mm3 (0.0-0.4); Eosinophils % 3.2 % (0.1-12.0); Hematocrit 50.7 % (37.0-47.0); Hemoglobin 17.2 g/dL (12.2-16.2); Lymphocytes % 19.4 % (10-50); Mean Corpuscular Hemoglobin 31.1 pg (27.0-31.2); Mean Corpuscular Volume 91.5 fl (81-99); Mean Platelet Volume 8.2 fl (7.4-10.4); Monocytes # 0.4 K/mm3 (0.1-1.0); Monocytes % 3.6 % (1.7-9.3); Neutrophils # 7.4 K/mm3 (1.8-7.8); Neutrophils % 73.2 % (37.0-80.0); Platelet Count 260 K/mm3 (142-424); Red Blood Count 5.54 M/mm3 (4.20-5.40); Red Cell Distribution Width 13.3 % (11.5-17.5); White Blood Count 10.1 K/mm3 (4.8-10.8)
[2019-12-16 09:41] LABS: Chloride 96 mmol/L (98-107); Potassium 3.8 mmoL/L (3.5-5.1); Sodium 139 mmol/L (136-145)
--- NOTE | 2019-12-16 09:43 | ECG_ITS ---
APPROVED REPORT Exam: Resting ECG HR:76 bpm ECG Measurements Heart Rate 76 AXES ME 142 P 85 QRSd 76 QRS 15 QT 402 T 47 QTc 452 <Conclusion> Normal sinus rhythm Normal ECG Electronically signed by : Ariel Romero, 12/19/2019 17:17:09
[2019-12-16 09:44] LABS: Alanine Aminotransferase 24 U/L (12-78); Albumin Level 5.3 g/dl (3.5-5.0); Albumin/Globulin Ratio 1.3 (1.1-1.8); Alkaline Phosphatase 112 U/L (38-126); Anion Gap 17.8 mEq/L (5-15); Aspartate Amino Transferase 27 U/L (14-36); Bilirubin,Total 0.7 mg/dl (0.2-1.3); Blood Urea Nitrogen 8 mg/dl (7-17); Carbon Dioxide 29 mmol/L (22.0-30.0); Creatinine Clearance Estimated 35 mL/min (50-200); Estimated Glomerular Filt Rate 99 ml/min (>60); GFR (African American) 120 ML/MIN (>60); Total Protein,Serum 9.3 g/dl (6.3-8.2)
[2019-12-16 09:45] LABS: Calcium 10.2 mg/dl (8.4-10.2); Glucose 116 mg/dl (74-100)
[2019-12-16 09:50] LABS: Amorphous Sediment,Urine 2+ /lpf; Bacteria,Urine Trace /lpf
--- NOTE | 2019-12-16 09:53 | CT_ITS ---
PROCEDURE: CT ABDOMEN PELVIS WO CON CLINICAL INDICATION: hematuria, r/o stone Flank pain, low back pain COMPARISON: CT LUNG SCREENING from 04/10/2019 XR CHEST PORTABLE from 12/16/2019 TECHNIQUE: Axial images obtained with sagittal and coronal reformats. All CT scans at the facility use one or more dose reduction, viz: automated exposure control, ma/kV adjustment per patient size (including targeted exams where dose is matched to indication, i.e. head), or iterative reconstruction technique. FINDINGS: LOWER THORAX: Consolidation has developed within the inferior aspect of the right upper lobe which is incompletely imaged. This was not present on previous screening chest CT of 04/10/2019. There are changes of COPD. ABDOMEN & PELVIS: The liver, spleen, and adrenal glands have an unremarkable appearance. Pancreas is poorly delineated due to sparsely of abdominal fat and overlying unopacified bowel. There is a small focus of calcification in the right renal pelvis and could be due to small nonobstructing stone at 3 mm versus a vascular calcification. No hydronephrosis. No ureteral calculi. Multiple unopacified bowel loops in the abdomen or pelvis which could obscure or mimic pathology. If symptoms persist, consider repeat exam with IV and oral contrast.. No evidence of appendicitis. There are post hysterectomy changes. There are degenerative changes in the lumbar spine with lumbar scoliosis convex left. The degenerative disc disease is most severe at L2-L3 IMPRESSION: 1. Consolidation/volume loss in the inferior aspect of the right upper lobe incompletely imaged. 2. No obstructing renal or ureteral calculi. Probable vascular calcification in the right kidney 3. Multiple unopacified bowel loops in the abdomen or pelvis which could obscure or mimic pathology. If symptoms persist, consider repeat exam with IV and oral contrast. No definite acute finding Dictated by: Pino Parker MD 12/16/2019 10:43 Electronically signed by Pino Parker MD in [facility] 12/16/2019 10:43
[2019-12-16 10:02] LABS: Troponin I < 0.01 ng/ml (0.00-0.034)
[2019-12-16 10:18] LABS: Thyroid Stimulating Hormone 0.17 uIU/mL (0.465-4.68)
[2019-12-16 10:23] VITALS: BP 147/96; PULSE 78; RESP 18; O2SAT 95
[2019-12-16 10:30] VITALS: BP 136/62; PULSE 81; RESP 18; O2SAT 93
[2019-12-16 11:22] VITALS: BP 151/92; PULSE 68; RESP 18; O2SAT 98
--- NOTE | 2019-12-16 12:06 | PC.NURSE ---
Dr Page garcia for pt.
--- NOTE | 2019-12-16 12:08 | PC.NURSE ---
Dr Weston speaking to Dr Abel.
[2019-12-16 12:35] VITALS: BP 151/92; PULSE 68; RESP 18; TEMP 36.8; O2SAT 98
== END 2019-12-16 12:40 | disposition home or self-care (01) ==
PROVIDERS: Emergency Provider Emergency Medicine; PCP Family Medicine
DX: R91.8 Other nonspecific abnormal finding of lung field (principal); K21.9 Gastro-esophageal reflux disease without esophagitis; I10 Essential (primary) hypertension; E78.5 Hyperlipidemia, unspecified; J44.9 Chronic obstructive pulmonary disease, unspecified; F17.210 Nicotine dependence, cigarettes, uncomplicated; Z95.0 Presence of cardiac pacemaker; Z79.899 Other long term (current) drug therapy
CPT/HCPCS: 71045; 74176; 80053; 81001; 84443; 84484; 85025; 87040; 93005; 96365; 99285

== ENCOUNTER 2020-01-25 18:40 | Observation (INO) | payer MEDICARE, MEDICAID, SELFPAY ==
[2020-01-25] VITALS (8 sets, daily range): BP systolic 109–127; BP diastolic 76–81; PULSE 69–90; RESP 17–18; TEMP 36.7–36.8; O2SAT 88–100; BMI 19.5; BMI 15.5
--- NOTE | 2020-01-25 18:43 | XR_ITS ---
PROCEDURE: XR HUMERUS RT Referring Doctor: Farzad Weston Patient Age:70Y CLINICAL INDICATION: fall patient fell on right arm. Abrasions right arm. COMPARISON: No exams were available for comparison FINDINGS: Right humerus AP and lateral view performed Humerus intact with no fracture or dislocation. Humeral head and neck included appear intact. Shaft humerus intact. No lytic or blastic change. There is normal mineralization. The joint spaces are well-preserved at the included right shoulder and right elbow appear to be fairly well preserved but no significant degenerative/arthritic changes. No erosive changes evident. . IMPRESSION: No acute findings. Right humerus intact Dictated by: Adonis Guerra MD 01/25/2020 21:24 Adonis Guerra MD in [facility] 01/25/2020 21:24
--- NOTE | 2020-01-25 18:43 | XR_ITS ---
PROCEDURE: XR PELVIS 1-2V Referring Doctor: Farzad Weston Patient Age:70Y CLINICAL INDICATION: Fall pelvis pain, injury COMPARISON: CR PELAP PELVIS AP ONLY from 12/04/2015 TECHNIQUE: XR Pelvis AP View FINDINGS: AP PELVIS with no fracture or dislocation is evident. No significant degenerative change. No lytic or blastic change. The SI joints have an unremarkable appearance. Atherosclerotic calcification aorta and iliac arteries noted. Probable Hines catheter in place IMPRESSION: No acute findings. Osseous pelvis intact Dictated by: Adonis Guerra MD 01/25/2020 21:22 Adonis Guerra MD in [place] 01/25/2020 21:22
--- NOTE | 2020-01-25 18:43 | XR_ITS ---
PROCEDURE: XR CHEST AP Referring Doctor: Farzad Weston Patient Age:70Y CLINICAL HISTORY: Fall patient fell on right side. Chest pain COMPARISON: CR CXR CHEST(2 VIEWS-NOT PORTABLE) from 09/29/2015 CR XR CHEST 2V from 02/22/2019 CR XR CHEST PORTABLE from 12/16/2019 FINDINGS: AP upright chest performed today. Single-view The lungs are well expanded and clear with no acute findings. No active disease. No significant change since February 2019 CXR. The heart is normal size but erika and mediastinal structures appear stable. Slightly more generous left main pulmonary artery versus right pattern again noted. . Normal pulmonary vascularity. No pneumothorax IMPRESSION: The no acute findings. Dictated by: Adonis Guerra MD 01/25/2020 21:20 Adonis Guerra MD in [place] 01/25/2020 21:20
--- NOTE | 2020-01-25 18:43 | CT_ITS ---
PROCEDURE: CT HEAD/BRAIN WO CON Referring Doctor: Farzad Weston Patient Age:70Y CLINICAL INDICATION: fall hit back of head but laceration no LOC, weakness 3 weeks COMPARISON: CT CT HEAD/BRAIN WO CON from 02/22/[address] CERVICAL SPINE WO CON from 01/25/2020 TECHNIQUE: No IV contrast. Standard axial images were obtained. All CT scans at the facility use one or more dose reduction, viz: automated exposure control, ma/kV adjustment per patient size (including targeted exams where dose is matched to indication, i.e. head), or iterative reconstruction technique. The FINDINGS: No acute intracranial findings. No intracranial hemorrhage. No hydrocephalus.The ventricles and basal cisterns appear clear and satisfactory. . No subdural or extra-axial fluid collection is evident. . Anteriorly on axial slice 25-26 there is a a small 9.2 mm calcified nodule extending from the inner table of the right frontal bone, and overlying the right frontal lobe. Mild sclerosis along the inner table of the right frontal bone bone again noted a similar to last year study. The these features-most compatible with stable small calcified meningioma. No appreciable mass effect. This feature abut and only slightly indents frontal cortex in this region.. If should have any progressive/persistent headaches or symptoms of follow-up CT or MRI follow-up within 12-18 months, may be in order to further confirm stability . There is also a small just over 4 mm focal calcification at the left tentorium which is unchanged either reflecting a small dural tentorial calcification or a conceivably a small stable early meningioma here as well . Subtle low-density areas in the white matter compatible with minimal chronic small vessel deep white-matter ischemic gliotic changes seen bilaterally which are also similar to last year's CT study.. No territorial infarct . The skull otherwise intact. Patient reportedly hit the back of head but no significant scalp hematoma evident by CT. Nomastoid effusions. Mastoid air cells are well developed and clear. Middle ear clear. IAC's symmetric. . Mild mucosal thickening is seen at the posterior ethmoid air cells as well as along the the medial wall of partially imaged right maxillary sinus. Left maxillary sinus with air-fluid level and slightly lobulated mucosal thickening posteriorly. IMPRESSION: No acute intracranial findings. Mild chronic deep white matter small vessel ischemic gliotic changes, again noted Stable just over 9 mm meningioma along the inner table right frontal bone again noted. No significant change since since February 2019 CT head. Paranasal sinus disease, CT head which has developed since 2019, with most prominent findings at left maxillary sinus. Dictated by: Adonis Guerra MD 01/25/2020 20:55 Adonis Guerra MD in [facility] 01/25/2020 20:55
--- NOTE | 2020-01-25 18:43 | CT_ITS ---
PROCEDURE: CT CERVICAL SPINE WO CON Referring Doctor: Farzad Weston Patient Age:70Y CLINICAL INDICATION: fall hit back of head pain head and neck No LOC. 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 All CT scans at the facility use one or more dose reduction, viz: automated exposure control, ma/kV adjustment per patient size (including targeted exams where dose is matched to indication, i.e. head), or iterative reconstruction technique. FINDINGS: No acute fracture nor subluxation is evident. Normal alignment with normal prevertebral soft tissues.. Facets, normal relationships but degenerative facet changes bilaterally most evident towards upper C-spine on right at C2/3, C3/4 and C4/5 but on the left most prominent facet arthropathy, hypertrophy at C5/6-C6/7. Normal C1/C2 relationships. Vertebral bodies are intact with no fractures or compression fractures evident.. Cervical spondylosis and degenerative disc space narrowing most evident C5/6 followed by C6/7. C5/6 with diffuse posterior osteophytic ridging. Mild bilateral foraminal encroachment . C6/7 with mild disc space narrowing and minor left conjoint spurring most evident to the left. Mild foraminal encroachment to the left Scant 1.5 mm anterior listhesis of C2 on C3 and C3 on C4 reflecting mild degenerative changes and degenerative facet changes at these levels. Mild anterior marginal osteophytes throughout the C-spine most evident at C5/6 Left maxillary sinus with thick air-fluid level on likely present.. Mucosal thickening posteriorly and laterally on low left maxillary sinus partially imaged On right-mild mucosal thickening posterior right ethmoid air cells and medial wall right maxillary sinus. Right lobe of thyroid a appears to been removed with remaining left lobe likely present. Apices of lungs are clear with no acute findings.. Emphysematous changes noted2 IMPRESSION: Mild degenerative changes cervical spine with no acute traumatic findings. No fracture nor acute subluxation. . Cervical spondylosis and degenerative disc changes most evident C5/6 followed by C6/7 . Facet degenerative changes seen at multiple levels bilaterally, most evident at upper right cervical spine Incidental acute left maxillary sinusitis noted Air-fluid level suggested left maxillary sinus along with moderate mucosal thickening Dictated by: Adonis Guerra MD 01/25/2020 21:06 Adonis Guerra MD in [facility] 01/25/2020 21:06
--- NOTE | 2020-01-25 18:43 | XR_ITS ---
PROCEDURE: XR KNEE RT 3V Referring Doctor: Farzad Weston Patient Age:70Y CLINICAL INDICATION: Fall fell on right knee with abrasions noted. Right knee pain COMPARISON: No exams were available for comparison FINDINGS: Or-three view AP lateral and oblique No fracture or dislocation. No lytic or blastic change. There is normal mineralization. The joint spaces are well-preserved. No significant degenerative/arthritic changes. No erosive changes evident. Developing minimal atherosclerotic calcification at the distal SFA with faint calcification trifurcation vessels noted IMPRESSION: Right knee intact with no acute findings. No fracture Dictated by: Adonis Guerra MD 01/25/2020 21:09 Adonis Guerra MD in [place] 01/25/2020 21:09
--- NOTE | 2020-01-25 18:43 | XR_ITS ---
PROCEDURE: XR FOREARM RT 2V Referring Doctor: Farzad Weston Patient Age:70Y CLINICAL INDICATION: fall injury right forearm prior right hand amputation COMPARISON: [facility] FOREARM-RT from 02/16/2016 FINDINGS: Right forearm, AP and lateral views . Patient has had amputation hand and wrist at the level of the distal aspect of radius and ulna shaft. The distal stump appears intact although there is less soft tissue overlying the distal stump than on previous 2016 study. The scant flaring of the bone at the amputation site both radius and ulna is stable since previous studies. The remaining shaft of radius and ulna intact. Proximal radius and ulna intact. Specifically radial head and olecranon intact. The limited AP and oblique views of the right elbow on this study are unremarkable. Elbow joint space well maintained. IMPRESSION: Previous amputation right hand/wrist at the level of the distal radius and ulna. No new or acute findings. Radius and ulna appear intact and stable Dictated by: Adonis Guerra MD 01/25/2020 21:14 Adonis Guerra MD in [place] 01/25/2020 21:14
--- NOTE | 2020-01-25 18:47 | HMH.EDGENADL ---
ED Disposition Clinical Impression: Multiple abrasions, Epistaxis, Weakness, Dehydration Fall Qualifiers: Encounter type: initial encounter Qualified Code(s): W19.XXXA - Unspecified fall, initial encounter Disposition: Admitted as Observation Condition on Discharge: Fair - Critical Care Critical Care Time: No Attestation: On 01/25/20, the high probability of a clinically significant, sudden or life threatening deterioration of the following system(s) required my full and direct attention, intervention and personal management. The time I documented below is in addition to time spent performing reported procedures but includes the following listed in this critical care notation. Medical Decision Making - Medical Records Medical records reviewed: Yes: I reviewed the patient's medical records. - Azam Inquiry Pt receiving controlled substance: No Vital Signs: 01/25/20 18:40 01/25/20 19:00 01/25/20 19:30 Temperature 98.2 F Temperature Source Oral Pulse Rate Pulse Rate [Right] 74 69 71 Respiratory Rate 17 17 18 Blood Pressure Blood Pressure [Right Arm] 124/81 126/76 112/80 Blood Pressure Mean [Right Arm] 95 92 90 Blood Pressure Source Blood Pressure Source [Right Arm] Automatic Cuff Automatic Cuff Blood Pressure Position Blood Pressure Position [Right Arm] Supine Supine 02 Sat by Pulse Oximetry 100 98 96 Oxygen Delivery Method Room Air Room Air 01/25/20 20:00 01/25/20 21:14 Temperature 98.2 F Temperature Source Oral Pulse Rate 90 Pulse Rate [Right] 76 Respiratory Rate 17 17 Blood Pressure 123/81 Blood Pressure [Right Arm] 109/78 L Blood Pressure Mean [Right Arm] 88 Blood Pressure Source Automatic Cuff Blood Pressure Source [Right Arm] Automatic Cuff Blood Pressure Position Sitting Blood Pressure Position [Right Arm] Supine 02 Sat by Pulse Oximetry 98 Oxygen Delivery Method Room Air Room Air - Lab Data Lab results reviewed: Yes: I reviewed the patient's lab results. Lab Results 01/25/20 18:50: WBC 15.0 H, RBC 3.23 L, Hgb 10.1 L, Hct 29.7 L, MCV 91.9, MCH 31.2, MCHC 33.9, RDW 13.1, Plt Count 255, MPV 8.5, Neut % (Auto) 79.5, Lymph % (Auto) 16.1, [place] % (Auto) 3.1, Eos % (Auto) 1.0, Baso % (Auto) 0.3, Neut # (Auto) 11.9 H, Lymph # (Auto) 2.4, [place] # (Auto) 0.5, Eos # (Auto) 0.2, Baso # (Auto) 0.1, Total Counted 100, Neutrophils % (Manual) 80 H, Lymphocytes % (Manual) 17, Monocytes % (Manual) 3, Platelet Estimate Normal, RBC Morphology Normal 01/25/20 18:50: Sodium 131 L, Potassium 4.0, Chloride 95 L, Carbon Dioxide 29, Anion Gap 11.0, BUN 24 H, Creatinine 1.10 H, Estimated Creat Clear 35, Estimated GFR 49 L, Est GFR ( Amer) 60, Glucose 92, Calcium 9.2, Total Bilirubin 0.6, AST 33, ALT 23, Alkaline Phosphatase 72, Total Creatine Kinase 440 H, Total Protein 6.5 D, Albumin 3.9, Globulin 2.6, Albumin/Globulin Ratio 1.5 01/25/20 18:50: SARS-CoV-2 IgG Ab (Rapid) Negative, SARS-CoV-2 IgM Ab (Rapid) Negative 01/25/20 18:58: Urine Color Yellow, Urine Appearance Clear, Urine pH 6.5, Ur Specific [place] 1.010, Urine Protein Negative, Urine Glucose (UA) Negative, Urine Ketones Negative, Urine Blood Negative, Urine Nitrate Negative, Urine Bilirubin Negative, Urine Urobilinogen 0.2, Ur Leukocyte Esterase Negative, Urine WBC Occasional, Ur Squamous Epith Cells Occasional, Urine Bacteria Trace, Hyaline Casts 3-5 01/25/20 19:45: Lactate 0.8 01/25/20 19:45: Stool Occult Blood Negative Result diagrams: 01/25/20 18:50 01/25/20 18:50 Orders (Tests/Meds): ED MEDICATIONS Generic Name Dose Route Start Last Admin Trade Name Freq PRN Reason Stop Dose Admin Ceftriaxone Sodium 1 gm/ 50 mls @ 100 mls/hr 01/25/20 21:15 01/25/20 21:12 Sodium Chloride IV 02/08/20 21:14 100 mls/hr Q24H RAFAELA Administration Protocol Discontinued Medications Generic Name Dose Route Start Last Admin Trade Name Freq PRN Reason Stop Dose Admin Morphine Sulfate 2 mg 01/25/20 21:00 01/25/20
--- NOTE | 2020-01-25 18:53 | ECG_ITS ---
APPROVED REPORT Exam: Resting ECG HR:72 bpm ECG Measurements Heart Rate 72 AXES WI 158 P 81 QRSd 80 QRS 2 QT 418 T 3 QTc 457 <Conclusion> Normal sinus rhythm Normal ECG Electronically signed by : Ariel Romero, 01/26/2020 06:13:44
[2020-01-25 19:02] LABS: Microscopic, Urine URINE MICROSCOPIC (MICROSCOPIC)
[2020-01-25 19:03] LABS: Basophils # 0.1 K/mm3 (0-0.2); Basophils % 0.3 % (0.1-2.0); Eosinophils # 0.2 K/mm3 (0.0-0.4); Hematocrit 29.7 % (37.0-47.0); Hemoglobin 10.1 g/dL (12.2-16.2); Lymphocytes # 2.4 K/mm3 (0.7-4.5); Lymphocytes % 16.1 % (10-50); Mean Corpuscular HGB Conc 33.9 g/dL (31.8-35.4); Mean Corpuscular Hemoglobin 31.2 pg (27.0-31.2); Mean Corpuscular Volume 91.9 fl (81-99); Mean Platelet Volume 8.5 fl (7.4-10.4); Monocytes # 0.5 K/mm3 (0.1-1.0); Monocytes % 3.1 % (1.7-9.3); Neutrophils # 11.9 K/mm3 (1.8-7.8); Neutrophils % 79.5 % (37.0-80.0); Platelet Count 255 K/mm3 (142-424); Red Blood Count 3.23 M/mm3 (4.20-5.40); Red Cell Distribution Width 13.1 % (11.5-17.5)
[2020-01-25 19:07] LABS: Chloride 95 mmol/L (98-107); Sodium 131 mmol/L (136-145)
[2020-01-25 19:10] LABS: Alanine Aminotransferase 23 U/L (12-78); Albumin Level 3.9 g/dl (3.5-5.0); Albumin/Globulin Ratio 1.5 (1.1-1.8); Alkaline Phosphatase 72 U/L (38-126); Aspartate Amino Transferase 33 U/L (14-36); Bilirubin,Total 0.6 mg/dl (0.2-1.3); Blood Urea Nitrogen 24 mg/dl (7-17); Calcium 9.2 mg/dl (8.4-10.2); Carbon Dioxide 29 mmol/L (22.0-30.0); Creatine Kinase 440 U/L (30-135); Creatinine Clearance Estimated 35 mL/min (50-200); Estimated Glomerular Filt Rate 49 ml/min (>60); GFR (African American) 60 ML/MIN (>60); Globulin 2.6 g/dL (1.3-3.2); Glucose 92 mg/dl (74-100); Total Protein,Serum 6.5 g/dl (6.3-8.2)
[2020-01-25 19:10] LABS: Appearance,Urine CLEAR (Clear); Bilirubin,Urine Negative (Negative); Blood, Urine Negative (Negative); Color,Urine YELLOW (Yellow); Glucose,Urine (UA) Negative (Negative); Ketones,Urine Negative (Negative); Leukocyte Esterase,Urine Negative (Negative); Nitrate,Urine Negative (Negative); PH,Urine 6.5 (5.0-8.5); Protein,Urine Negative (Negative); Urobilinogen,Urine 0.2 EU/dl (0.2)
[2020-01-25 19:12] LABS: MANUAL DIFFERENTIAL MANUAL DIFFERENTIAL (MANUAL DIFF)
[2020-01-25 19:24] LABS: Bacteria,Urine Trace /lpf; Squamous Epithelial Cell,Urine Occasional #/hpf (0-5); WBC,Urine Occasional #/hpf (0-3)
[2020-01-25 19:44] LABS: Coronavirus 19 IgG Antibody Negative (Negative); Coronavirus 19 IgM Antibody Negative (Negative)
[2020-01-25 19:58] LABS: Occult Blood,Stool Negative (Negative)
[2020-01-25 20:14] LABS: Lactic Acid 0.8 mmol/L (0.7-2.1)
[2020-01-25 20:55] LABS: Lymphocytes % 17 % (10-50); Monocytes % 3 % (2-9); Neutrophils % 80 % (42-76); Total Cells Counted 100
[2020-01-25 20:56] LABS: Platelet Estimate Normal; RBC Morphology Normal
--- NOTE | 2020-01-25 21:47 | PC.NURSE ---
PT ARRIVED TO THE FLOOR VIA STRETCHER FROM ER WITH [facility] AT 2146.
[2020-01-26] VITALS (8 sets, daily range): BP systolic 107–122; BP diastolic 68–78; PULSE 70–103; RESP 19–20; TEMP 36.5–37; O2SAT 88–98; BMI 15.7; BMI 15.6
--- NOTE | 2020-01-26 00:18 | PC.NURSE ---
Pt new admit for falls and epistaxis. Pt is A&O x4 at arrival but does seem to have periods of confusion. Pt has attempted multiple times to get up stating i have to pee despite being told multiple times she has a rome catheter in place. Skin tear to RUE was cleaned and dressed with non-adherent pad wrapped with kerlex. Scattered bruising and band-aid to LUE. Abrasions present to right knee. Ballon pump to left nare still in place from ED. Pt was 85% on RA, 1LNC applied with stats staying between 92%-95%. [place] patent draining clear, yellow urine. Bed alarm in place for pt safety.
--- NOTE | 2020-01-26 02:28 | PC.NURSE ---
2300-Pt new admit for falls and epistaxis. Pt is A&O x4 at arrival but does seem to have periods of confusion. Pt has attempted multiple times to get up stating I have to pee despite being told multiple times she has a rome catheter in place. Skin tear to RUE was cleaned and dressed with non-adherent pad wrapped with kerlex. Scattered bruising and band-aid to LUE. Abrasions present to right knee. Rhino balloon to left nare still in place from ED. Pt was 85% on RA, 1LNC applied with sats staying between 92%-95%. [place] patent draining clear, yellow urine. Bed alarm in place for pt safety.
--- NOTE | 2020-01-26 05:12 | PC.NURSE ---
RA sat of 88% at rest at 0345. 1LNC reapplied Pt has rested well since admission. Repositions independently.
--- NOTE | 2020-01-26 06:02 | PC.NURSE ---
Pt's Xanax counted by this RN with pt and 2nd RN present. Blue medication form signed by pt and locked in drawer w/ medication.
[2020-01-26 06:49] LABS: Basophils % 0.2 % (0.1-2.0); Eosinophils # 0.2 K/mm3 (0.0-0.4); Eosinophils % 1.8 % (0.1-12.0); Hematocrit 28.1 % (37.0-47.0); Hemoglobin 9.5 g/dL (12.2-16.2); Lymphocytes # 2.4 K/mm3 (0.7-4.5); Lymphocytes % 25.1 % (10-50); Mean Corpuscular HGB Conc 33.9 g/dL (31.8-35.4); Mean Corpuscular Hemoglobin 31.8 pg (27.0-31.2); Mean Corpuscular Volume 93.8 fl (81-99); Mean Platelet Volume 9.8 fl (7.4-10.4); Monocytes # 0.4 K/mm3 (0.1-1.0); Monocytes % 3.8 % (1.7-9.3); Neutrophils # 6.6 K/mm3 (1.8-7.8); Platelet Count 253 K/mm3 (142-424); Red Cell Distribution Width 13.4 % (11.5-17.5); White Blood Count 9.5 K/mm3 (4.8-10.8)
[2020-01-26 06:52] LABS: Chloride 106 mmol/L (98-107); Sodium 137 mmol/L (136-145)
[2020-01-26 06:55] LABS: Blood Urea Nitrogen 20 mg/dl (7-17); Carbon Dioxide 26 mmol/L (22.0-30.0); Creatinine Clearance Estimated 34 mL/min (50-200); Estimated Glomerular Filt Rate 83 ml/min (>60); GFR (African American) 100 ML/MIN (>60)
[2020-01-26 06:56] LABS: Glucose 93 mg/dl (74-100)
--- NOTE | 2020-01-26 07:59 | P.CONPHA_ITS ---
[facility] Pharmacy VTE Monitoring - Patient Demographics Admission date: 01/26/20 Report Date: 01/26/20 Time: 07:59 Allergies/Adverse Reactions: Patient Allergies Sulfa (Sulfonamide Antibiotics) [SULFA (SULFONAMIDE ANTIBIOTICS)] Allergy (Unknown, Verified 10/31/19 18:50) Height: 1.6 m Weight: 40.398 kg Patient Problems: Current Active Problems Fall (Acute) Multiple abrasions (Acute) Epistaxis (Acute) Dehydration (Acute) Weakness (Acute) - VTE Risk Labs: VTE Related Lab Results Hgb 9.5 g/dL (12.2-16.2) L 01/26/20 05:47 Hct 28.1 % (37.0-47.0) L 01/26/20 05:47 Plt Count 253 K/mm3 (142-424) 01/26/20 05:47 BUN 20 mg/dl (7-17) H 01/26/20 05:47 Creatinine 0.70 mg/dl (0.52-1.04) D 01/26/20 05:47 Estimated Creat Clear 34 mL/min (50-200) 01/26/20 05:47 Was VTE Risk Assessment Performed: Yes VTE Score: 4 VTE Risk Level: Low Risk Clinical Trial Participant: No - Prophylaxis VTE Prophylaxis Ordered?: Yes Types of VTE Prophylaxis: TEDS Knee High Location of Applied Device: Bilateral Lower Extremeties
--- NOTE | 2020-01-26 08:09 | HMH.PHAINT ---
HOME MEDICAITON RECONCILCIATION COMPLETED USING LIST FROM HOME PHARMACY
--- NOTE | 2020-01-26 09:14 | HMH.HP ---
*Admission Date: 01/26/20 <Elissa Cross - 01/26/20 09:38> *Chief complaint: Nosebleed and weakness <Elissa Cross - 01/26/20 09:38> *History of present illness: Ms. Tate is a 69-year-old female with a history of anxiety, hyperlipidemia, osteoporosis, H. pylori, hypertension, COPD, and multi-nodular goiter who presented to [facility] emergency room after a fall and inability to get up. She was also experiencing a nosebleed which she was unable to control. She describes a decline in the past few months with repeated falls. She states her falls are due to the warren and slipping and sliding with her socks on. She was last seen in the office on 12/18/2019 and was treated for pneumonia and abdominal cramping with nausea. She was to follow-up but did not keep this appointment. Laboratory data on admission show white blood cell count of 15,000 with a decrease to 9500 this a.m. Hemoglobin was 10.1 and with repeat this a.m. at 9.5. Blood chemistries show sodium of 131 potassium of 4 chloride 95 and CO2 of 29 with a BUN of 24 and creatinine of 1.10. Iron is noted to be normal at 91 today. She had numerous imaging tests with CT of the cervical spine showing mild degenerative changes with no acute traumatic findings, And with cervical spondylosis and degenerative disc changes most evidence at C5/[address] 11/08; Chest x-ray revealed no acute findings; right forearm x-ray revealed a previous amputation of the right hand/wrist with no acute findings; CT of the head and brain reveal no acute findings, mild chronic deep white matter, stable just over 9 mm meningioma with no significant change since February 2019, and paranasal sinus disease. X-ray of the right humerus shows no acute findings; X-ray of the right knee reveals no acute findings. X-ray of the pelvis reveals no acute findings. In the emergency room patient was started on Rocephin IV and given morphine sulfate 2 mg once and a liter of IV fluids. Patient was brought in by ambulance and her biggest complaint was her pain in her tailbone. After discussion with her granddaughter, Jessi, they agreed to admit the patient due to her weakness and her falls. Initially the patient refused to stay but when she had to have a balloon placed in her left nostril to stop the bleeding, she did consent to stay. <Stella Crosshy 01/26/20 09:38> [facility] History Medical History: Reports:: Arrhythmia, Chronic Obstructive Pulmonary Disease (COPD), Gastroesophageal Reflux Disease(GERD), Hyperlipidemia, Hypertension, Lung Disease Denies:: Cancer, Diabetes Mellitus Type 1, Diabetes Mellitus Type 2, Internal Pacemaker, MRSA, Seizures <TayElissa 01/26/20 09:38> *Have you ever received a pneumonia vaccine?: Yes <Elissa Cross 01/26/20 09:38> *Have you received a flu vaccine this season?: Yes <Elissa Cross 01/26/20 09:38> Other Medical History: Reports: Arthritis, Thyroid Disease <Elissa Cross 01/26/20 09:38> Laterality Cases: Left: Lumpectomy <Elissa Cross 01/26/20 09:38> Other Surgeries: Yes: Colonoscopy, EGD, Hysterectomy-Partial, Thyroidectomy (partial ), Tubal Ligation. 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 Normal colonoscopy 02/21/2007. <TayElissa 01/26/20 09:38> - *Social History Last grade of school completed: 7th or 8th <Elissa Cross 01/26/20 09:38> Smoking Status: Current every day smoker <Elissa Cross 01/26/20 09:38> Tobacco Type: cigarettes <Elissa Cross 01/26/20 09:38> # Packs/Day (cigarettes): 1 <Elissa Cross 01/26/20 09:38> Alcohol Intake: never <Elissa Cross 01/26/20 09:38> Alcohol Intake Frequency:: a few times a month <Elissa Cross 01/26/20 09:38> Substance Use Type: denies use <Elissa Cross 01/26/20 09:38> *Occupational Status:: disabled <Tay
[2020-01-26 09:15] LABS: Iron 91 ug/dL (37-170)
[2020-01-26 09:21] LABS: Reticulocyte % (Auto) 3.4 % (0.9-3.2)
[2020-01-26 09:24] LABS: Total Iron Binding Capacity 293 ug/dL (265-497)
--- NOTE | 2020-01-26 10:49 | PC.NURSE ---
Addendum entered by Christopher Robles RN 01/26/20 11:10: Correction going to give prn xanax as ordered per aug Original Note: Called and spoke with Dr. Abel in re to pt requesting a nicotine patch and he stated that was fine 21 mg. Noted. Pt is alert and oriented and able to make needs known but does have episodes of forgetfulness. Did refused to take gabapentin this am. Have medicated with prn morphine as pt rated pain in hips and tailbone 02/11, states it has helped, although she is anxious. Going to give prn ativan. Hines in place and draining light yellow urine with good output. Have also weaned to RA and sats 98-99%. Will cont to mx. Chair alarm in place and pt is up to chair at this time. BS active and lungs diminished in bases. Device still in place to L nare. No further noticeable bleeding or clots. R hand amputation. Scatted skin tears and scabs noted. CB in reach.
--- NOTE | 2020-01-26 11:03 | HMH.PTEV ---
Physical Therapy Evaluation Rehab PT IP Evaluation Start: 01/26/20 08:32 Freq: ONCE Status: Active Protocol: Document 01/26/20 10:55 JORGE (Rec: 01/26/20 11:03 [email or web address] [id number]) Subjective/History History History This is the initial IP PT evaluation for Susana Tate. Pt is a 70 y/o female admitted to [facility] thru ER w/ uncontrolled nose bleed requiring balloon to stop, frequent falls at home and weakness. Pt lives in 3 floor apartment alone w/ out AD - PT has had R hand amputation in past Subjective Subjective Pt reports she lives alone w/ out any or much support - pt reports not being able to use walker or cane due to loss of R hand Rehab PT IP Eval Objective Appearance Patient Behavior Appropriate,Cooperative Patient Orientation Person,Place,Time Difficulty following instructions none Speech Pattern Clear Ambulation Patient Able to Ambulate Yes Ambulation Observation IP General Gait Pattern Observation Narrow Based Gait,Shuffling Step Ambulation Distance (feet) 10 Ambulation Assistive Device None Ambulation Ability Contact Guard/Hand Hold Balance Ability to Arise Able, uses arms to help Sitting Balance Steady, safe Standing Balance Unsteady Dynamic Sitting Balance Ability Good Dynamic Standing Balance Ability Poor Transfers Bed Transfer Ability Independent Chair Transfer Ability Independent Sit to Stand Bed Transfer Ability Contact Guard/Hand Hold Sit to Stand Chair Transfer Ability Contact Guard/Hand Hold ROM All Extremities PT ROM Status WFL MMT All Extremities PT MMT WFL Rehab PT IP prob,goals,plan Problems Date of Evaluation: 01/26/20 PT IP Problems Gait,Balance,Self care,Safety Rehab Potential Rehab Potential Fair Plan PT Intervention Plan Transfers,Gait,Therapeutic Exercise PT Plan Frequency BID Duration LOS Discharge Goals Ambulation Distance (feet) 25 Discharge Plan PT Discharge Plan Pt would benefit from SNF placement for st rehab to allow return to I level of function. Pt reports she does
--- NOTE | 2020-01-26 11:17 | SW/DCPLANNER ---
Addendum entered by Arlin Mack 01/26/20 16:17: Yoana Alvares with [facility] has stated that this patient can be admitted to [facility] pending that Medicare is still waiving qualifying stays due to COVID. Yoana has also stated that if [facility] is waiving qualifying stays they can accept and patient will require one more additional COVID antibody (blood) testing with negative results. CM will follow up with Yoana Giorgio tomorrow morning. Addendum entered by Arlin Mack 01/26/20 13:12: Yoana Alvares with [facility] is currently reviewing patients information. Original Note: I have spoke with this patient regarding home situation and discharge plans. Patient stated that she resides at home alone and has family that is involved. Patient stated that she has had multiple falls lately and is unable to use a walker due to left hand amputation and is unable to use a cane. I did explain placement vs home health to this patient and that PT is recommending placement at this time. Patient stated that she would be willing to allow me to fax information to [facility] but is still unsure and she may rather have home health. I will speak with Yoana Giorgio and fax information if a bed is available. I will also follow up with patient this afternoon. Discharge date is unknown at this time.
--- NOTE | 2020-01-26 18:26 | PC.NURSE ---
No acute changes, did c/o of SANTOS, have given prn tylenol per mar. Dr. mg plans to removed device from L nare tomorrow and ordered a cbc this for am. Hines draining yellow urine and has had good u/o. Have changed dsg to curly arms and applied dsg to R leg after cleaning. Pt has had a bath this shift. No active bleeding from nose, has had x 1 blood clot approx dime size. Did make Dr. Abel aware of positive blood cx's. VSS. Will cont to mx this shift. has continued to do well on RA.
--- NOTE | 2020-01-26 18:46 | PC.NURSE ---
Placed pt in contact precautions r/t pos blood cx's.
--- NOTE | 2020-01-26 19:21 | PC.NURSE ---
report given to adelita
--- NOTE | 2020-01-26 19:34 | PC.NURSE ---
Pt c/o of heartburn, received order for maalox x 1 30 ml po and protonix 40 mg x 1 po starting tonight per Dr. Wright hr operations advisor for Dr. Abel. Did also make NANETTE Castro RN aware of pts positive blood cx's. Pt continues to be in contact precautions.
[2020-01-27] VITALS (7 sets, daily range): BP systolic 93–125; BP diastolic 61–86; PULSE 73–92; RESP 18–20; TEMP 36.4–36.7; O2SAT 87–93; BMI 15.5
[2020-01-27 06:27] LABS: Basophils % 0.3 % (0.1-2.0); Eosinophils # 0.3 K/mm3 (0.0-0.4); Hematocrit 28.1 % (37.0-47.0); Hemoglobin 9.3 g/dL (12.2-16.2); Lymphocytes # 2.3 K/mm3 (0.7-4.5); Lymphocytes % 17.6 % (10-50); Mean Corpuscular Hemoglobin 31.8 pg (27.0-31.2); Mean Corpuscular Volume 96.5 fl (81-99); Mean Platelet Volume 9.3 fl (7.4-10.4); Monocytes # 0.5 K/mm3 (0.1-1.0); Monocytes % 4.2 % (1.7-9.3); Neutrophils # 9.7 K/mm3 (1.8-7.8); Neutrophils % 75.9 % (37.0-80.0); Platelet Count 248 K/mm3 (142-424); Red Blood Count 2.91 M/mm3 (4.20-5.40); Red Cell Distribution Width 13.6 % (11.5-17.5); White Blood Count 12.8 K/mm3 (4.8-10.8)
--- NOTE | 2020-01-27 06:38 | PC.NURSE ---
No acute changes. Hines patent draining clear, yellow urine. Pt c/o SANTOS and nose pain during the night, medicated per AUG w/ relief. Pt remains in contact for possible MDRO.
[2020-01-27 08:13] LABS: Vitamin B12 776 pg/mL (232-1245)
--- NOTE | 2020-01-27 08:44 | HMH.ACPN2 ---
Internal Medicine - PN: Subj *Date: 01/27/20 *Time: 08:55 Interval history: She rested fairly well last night but complains of a persistent left-sided headache and earache which she attributes to the nasal balloon. No complaints of shortness of breath or chest pain. She was seen in consultation by Dr. Dean yesterday and he is planning to remove the balloon today. She was evaluated by physical therapy yesterday and recommended skilled care after discharge for short-term rehab. She is not sure she wants to do that and may prefer going home with home health. Exam Vital signs and Labs for Last 24 Hours: Temp Pulse Resp BP Pulse Ox 97.6 F 85 18 113/61 90 L 01/27/20 08:00 01/27/20 08:00 01/27/20 08:00 01/27/20 08:00 01/27/20 08:00 Laboratory Results - last 24 hr 01/26/20 05:47: Retic Count (auto) 3.4 H 01/26/20 05:47: Iron 91, TIBC 293, Iron Saturation 31.31336, Ferritin 71.0 01/26/20 09:17: Vitamin B12 776 01/27/20 05:48: WBC 12.8 H D, RBC 2.91 L, Hgb 9.3 L, Hct 28.1 L, MCV 96.5, MCH 31.8 H, MCHC 33.0, RDW 13.6, Plt Count 248, MPV 9.3, Neut % (Auto) 75.9, Lymph % (Auto) 17.6, [place] % (Auto) 4.2, Eos % (Auto) 2.0, Baso % (Auto) 0.3, Neut # (Auto) 9.7 H, Lymph # (Auto) 2.3, [place] # (Auto) 0.5, Eos # (Auto) 0.3, Baso # (Auto) 0.0 I & O for Last 24 hours: Intake & Output 01/24/20 01/25/20 01/26/20 01/27/20 11:59 11:59 11:59 11:59 Intake Total 888 / 888 2243 / 2243 Output Total 2900 / 2900 3795 / 3795 Balance -2011 / -2011 -155 / -155 Weight 89 lb 1 oz 87 lb 6 oz Microbiology Reports for the Last 24 Hours: Microbiology 01/25/20 19:45 Blood Blood Culture - Preliminary Gram Positive Cocci 01/25/20 19:45 Blood Blood Culture - Preliminary Gram Positive Cocci Narrative: She is sitting up in bed and is more alert this morning. She is oriented x3. No respiratory distress. Color is normal. TMs are unremarkable bilaterally. Nasal balloon in place in the left nares with no signs of active bleeding. Left frontal and maxillary sinuses are tender. Lungs are clear to auscultation. Heart is regular. Extremities no edema. Assessment and Plan (1) Dehydration Current visit: Yes Status: Acute Category: Medical Code(s): E86.0 - Dehydration (2) Epistaxis Current visit: Yes Status: Acute Category: Medical Code(s): R04.0 - Epistaxis (3) Fall Current visit: Yes Status: Acute Qualifiers: Encounter type: initial encounter Qualified Code(s): W19.XXXA - Unspecified fall, initial encounter Category: Medical Code(s): W19.XXXA - Unspecified fall, initial encounter (4) Multiple abrasions Current visit: Yes Status: Acute Category: Medical Code(s): T07.XXXA - Unspecified multiple injuries, initial encounter (5) Weakness Current visit: Yes Status: Acute Category: Medical Code(s): R53.1 - Weakness (6) Back pain Current visit: No Status: Acute Category: Medical Code(s): M54.9 - Dorsalgia, unspecified (7) COPD (chronic obstructive pulmonary disease) Current visit: No Status: Acute Qualifiers: COPD type: unspecified COPD Qualified Code(s): J44.9 - Chronic obstructive pulmonary disease, unspecified Category: Medical Code(s): J44.9 - Chronic obstructive pulmonary disease, unspecified (8) Positive blood culture Current visit: Yes Status: Acute Category: Medical Code(s): R78.81 - Bacteremia (9) Blood loss anemia Current visit: Yes Status: Acute Category: Medical Code(s): D50.0 - Iron deficiency anemia secondary to blood loss (chronic) (10) Acute sinusitis Current visit: Yes Status: Acute Category: Medical Code(s): J01.90 - Acute sinusitis, unspecified - Assessment and plan all Dx Assessment and Plan for all problems:: Subjectively, she looks better today. We will continue with physical therapy and see how she progresses and then mt
--- NOTE | 2020-01-27 09:05 | HMH.PHACONS ---
- Pharmacy Consult Date: 01/27/20 Time: 09:05 Referring provider: DR. OROPEZA Reason for Consult:: VANCOMYCIN DOSING Allergies and ADEs:: Allergies Allergy/AdvReac Type Severity Reaction Status Date / Time Sulfa (Sulfonamide Allergy Unknown Verified 10/31/19 18:50 Antibiotics) [SULFA (SULFONAMIDE ANTIBIOTICS)] Home Medications:: Home Medications Medication Instructions Recorded Confirmed Type ALPRAZolam [Xanax 0.5mg tab] 0.5 mg PO TID PRN 08/14/17 01/25/20 History Albuterol Sulfate [Albuterol HFA 1 - 2 puffs IH Q4-6H PRN 08/14/17 01/25/20 History Inhaler] Budesonide/Formoterol Fumarate 2 puffs IH DAILY 08/14/17 01/25/20 History [Symbicort 160-4.5 Mcg Inhaler] Cetirizine HCl [Zyrtec] 10 mg PO DAILY 08/14/17 01/25/20 History Pantoprazole Sodium [Protonix 40mg 40 mg PO DAILY 08/14/17 01/25/20 History tablet] polyethylene glycoL 3350 [Miralax 17 gm PO DAILY 08/14/17 01/25/20 History 17gm Packet] amitriptyline 25 mg tablet 25 mg PO HS tab 06/06/19 01/26/20 History gabapentin 100 mg capsule 100 mg PO TID cap 06/06/19 01/25/20 History lisinopril 20 mg tablet 20 mg PO BID 06/18/19 01/25/20 History Amlodipine Besylate [Amlodipine 5 mg PO DAILY 12/16/19 01/25/20 History 5mg tab] Metoprolol Succinate 25 mg PO HS 12/16/19 01/25/20 History Fluticasone Propionate [Flonase 1 spray NS DAILY 01/25/20 01/25/20 History Allergy Relief NS] levalbuterol HCL [Levalbuterol HCl] 1.25 mg IH Q6 01/25/20 01/25/20 History Levothyroxine Sodium 25 mcg PO DAILY 01/26/20 01/26/20 History [Levothyroxine 25mcg (0.025mg) Tab] Height: 1.6 m Weight: 39.633 kg Laboratory Results:: Laboratory Results - last 24 hr 01/26/20 05:47: Retic Count (auto) 3.4 H 01/26/20 05:47: Iron 91, TIBC 293, Iron Saturation 31.03918, Ferritin 71.0 01/26/20 09:17: Vitamin B12 776 01/27/20 05:48: WBC 12.8 H D, RBC 2.91 L, Hgb 9.3 L, Hct 28.1 L, MCV 96.5, MCH 31.8 H, MCHC 33.0, RDW 13.6, Plt Count 248, MPV 9.3, Neut % (Auto) 75.9, Lymph % (Auto) 17.6, [place] % (Auto) 4.2, Eos % (Auto) 2.0, Baso % (Auto) 0.3, Neut # (Auto) 9.7 H, Lymph # (Auto) 2.3, [place] # (Auto) 0.5, Eos # (Auto) 0.3, Baso # (Auto) 0.0 Medical History: Reports:: Arrhythmia, Chronic Obstructive Pulmonary Disease (COPD), Gastroesophageal Reflux Disease(GERD), Hyperlipidemia, Hypertension, Lung Disease Denies:: Cancer, Diabetes Mellitus Type 1, Diabetes Mellitus Type 2, Internal Pacemaker, MRSA, Seizures Assessment and Plan (1) Dehydration Current visit: Yes Status: Acute Category: Medical Code(s): E86.0 - Dehydration (2) Epistaxis Current visit: Yes Status: Acute Category: Medical Code(s): R04.0 - Epistaxis (3) Fall Current visit: Yes Status: Acute Qualifiers: Encounter type: initial encounter Qualified Code(s): W19.XXXA - Unspecified fall, initial encounter Category: Medical Code(s): W19.XXXA - Unspecified fall, initial encounter (4) Multiple abrasions Current visit: Yes Status: Acute Category: Medical Code(s): T07.XXXA - Unspecified multiple injuries, initial encounter (5) Weakness Current visit: Yes Status: Acute Category: Medical Code(s): R53.1 - Weakness (6) Back pain Current visit: No Status: Acute Category: Medical Code(s): M54.9 - Dorsalgia, unspecified (7) COPD (chronic obstructive pulmonary disease) Current visit: No Status: Acute Qualifiers: COPD type: unspecified COPD Qualified Code(s): J44.9 - Chronic obstructive pulmonary disease, unspecified Category: Medical Code(s): J44.9 - Chronic obstructive pulmonary disease, unspecified (8) Positive blood culture Current visit: Yes Status: Acute Category: Medical Code(s): R78.81 - Bacteremia (9) Blood loss anemia Current visit: Yes Status: Acute Category: Medical Code(s): D50.0 - Iron deficiency anemia secondary to blood loss (chronic) (10) Acute sinusitis Current visit: Yes Status:
--- NOTE | 2020-01-27 09:56 | SW/DCPLANNER ---
Addendum entered by Arlin Mack 01/28/20 09:54: This patient has decided to NOT discharge to [facility]. Patient prefers to discharge back home with home health services at discharge. I will set this patient up with home health once stable for discharge. Patient is not ready for discharge today. I will also inform Yoana with [facility] that this patient will NOT discharge to them. Addendum entered by Jennifer Ruelas 01/27/20 13:16: SPOKE WITH PATIENT AND INFORMED HER THAT [facility] HAS ACCEPTED HER AND SHE AGREED TO GO... I EXPLAINED TO HER THAT THIS BED IS SHORT TERM REHAB AND SHE SAID THAT SHE ONLY WANTS TO STAY SHORT TERM BECAUSE SHE [facility]ES [facility] [address] A COVID HAS BEEN ORDERED AND STILL WAITING ON PENDING CULTURES.. Original Note: MADE A CALL TO [facility] THIS MORNING TO CHECK TO SEE IF PATIENT WILL BE ACCEPTED FOR SHORT TERM REHAB.... THIS PATIENT IS CURRENTLY IN AN OBSERVATION STATUS BUT WITH THE NEW MCR GUIDELINES AT THE PRESENT TIME THE FACILITY IS CHECKING TO SEE IF SHE CAN UTILIZE HER MCR BENEFIT WITHOUT A QUALIFYING STAY.. I WAS ABLE TO GET [facility] AND PATIENT HAS BEEN ACCEPTED FOR SHORT TERM REHAB, MCR WAIVER IS STILL IN EFFECT AND PATIENT CAN USE HER MCR BENEFIT... PATIENT IS CURRENTLY WAITING ON PENDING CULTURES TO MAKE SURE SHE IS ON THE RIGHT ANTIBIOTIC AND WILL SEE DR DIAZ TODAY TO GET THE BALLOON REMOVED.. IF CULTURES COME BACK TODAY SHE MAY BE ABLE TO GO [facility] PENDING ..
[2020-01-27 10:12] LABS: Folate 19.1 ng/mL (>3.0)
--- NOTE | 2020-01-27 10:16 | HMH.GSCON ---
*Admission Date: 01/26/20 *Reason for consult:: Epistaxis *History of present illness: started on 01/24 when pt was admitted from Emergency Room Review of Systems - ENT Reports other Comments: nasal packing left side. - *Neurologic Reports confusion, Reports dizziness, Denies headache(s), Denies numbness, Denies weakness [facility] History I have reviewed the patient's past medical history: Yes Medical History: Reports:: Arrhythmia, Chronic Obstructive Pulmonary Disease (COPD), Gastroesophageal Reflux Disease(GERD), Hyperlipidemia, Hypertension, Lung Disease Denies:: Cancer, Diabetes Mellitus Type 1, Diabetes Mellitus Type 2, Internal Pacemaker, MRSA, Seizures *Have you ever received a pneumonia vaccine?: Yes *Have you received a flu vaccine this season?: Yes Other Medical History: Reports: Arthritis, Thyroid Disease Laterality Cases: Left: Lumpectomy Other Surgeries: Yes: Colonoscopy, EGD, Hysterectomy-Partial, Thyroidectomy (partial ), Tubal Ligation. No: Pacemaker Amputation: Yes (Right Hand ) Fractures: No - *Social History Last grade of school completed: 7th or 8th Smoking Status: Current every day smoker Tobacco Type: cigarettes # Packs/Day (cigarettes): 1 Alcohol Intake: never Alcohol Intake Frequency:: a few times a month Substance Use Type: denies use *Occupational Status:: disabled Housing: apartment Household Members: none *Travel in the last 8 weeks: None Family Hx:: Cancer, Coronary Artery Disease Meds Home Medications Medication Instructions Recorded Confirmed Type ALPRAZolam [Xanax 0.5mg tab] 0.5 mg PO TID PRN 08/14/17 01/25/20 History Albuterol Sulfate [Albuterol HFA 1 - 2 puffs IH Q4-6H PRN 08/14/17 01/25/20 History Inhaler] Budesonide/Formoterol Fumarate 2 puffs IH DAILY 08/14/17 01/25/20 History [Symbicort 160-4.5 Mcg Inhaler] Cetirizine HCl [Zyrtec] 10 mg PO DAILY 08/14/17 01/25/20 History Pantoprazole Sodium [Protonix 40mg 40 mg PO DAILY 08/14/17 01/25/20 History tablet] polyethylene glycoL 3350 [Miralax 17 gm PO DAILY 08/14/17 01/25/20 History 17gm Packet] amitriptyline 25 mg tablet 25 mg PO HS tab 06/06/19 01/26/20 History gabapentin 100 mg capsule 100 mg PO TID cap 06/06/19 01/25/20 History lisinopril 20 mg tablet 20 mg PO BID 06/18/19 01/25/20 History Amlodipine Besylate [Amlodipine 5 mg PO DAILY 12/16/19 01/25/20 History 5mg tab] Metoprolol Succinate 25 mg PO HS 12/16/19 01/25/20 History Fluticasone Propionate [Flonase 1 spray NS DAILY 01/25/20 01/25/20 History Allergy Relief NS] levalbuterol HCL [Levalbuterol HCl] 1.25 mg IH Q6 01/25/20 01/25/20 History Levothyroxine Sodium 25 mcg PO DAILY 01/26/20 01/26/20 History [Levothyroxine 25mcg (0.025mg) Tab] Allergies Allergy/AdvReac Type Severity Reaction Status Date / Time Sulfa (Sulfonamide Allergy Unknown Verified 10/31/19 18:50 Antibiotics) [SULFA (SULFONAMIDE ANTIBIOTICS)] Exam Vital signs and Labs for Last 24 Hours: Temp Pulse Resp BP Pulse Ox 97.6 F 85 18 113/61 90 L 01/27/20 08:00 01/27/20 08:00 01/27/20 08:00 01/27/20 08:00 01/27/20 08:00 Laboratory Results - last 24 hr 01/26/20 09:17: Vitamin B12 776 01/26/20 09:17: Folate 19.1 01/27/20 05:48: WBC 12.8 H D, RBC 2.91 L, Hgb 9.3 L, Hct 28.1 L, MCV 96.5, MCH 31.8 H, MCHC 33.0, RDW 13.6, Plt Count 248, MPV 9.3, Neut % (Auto) 75.9, Lymph % (Auto) 17.6, [place] % (Auto) 4.2, Eos % (Auto) 2.0, Baso % (Auto) 0.3, Neut # (Auto) 9.7 H, Lymph # (Auto) 2.3, [place] # (Auto) 0.5, Eos # (Auto) 0.3, Baso # (Auto) 0.0 I & O for Last 24 hours: Intake & Output 01/24/20 01/25/20 01/26/20 01/27/20 23:59 23:59 23:59 23:59 Intake Total 1832 / 1832 1299 / 1299 Output Total 4100 / 4100 2595 / 2595 Balance -2268 / -2268 -1296 / -1296 Weight 87 lb 9 oz 88 lb 2.958 oz 87 lb 6 oz Microbiology Reports for the Last 24 Hours: Microbiology 01/25/20 19:45 Blood Blood Culture - Preliminary
--- NOTE | 2020-01-27 10:21 | HMH.GSCON ---
*Admission Date: 01/27/20 *Reason for consult:: f/u epistaxis *History of present illness: started on 01/24 when pt was admitted from Emergency Room Review of Systems - ENT Reports other - *Neurologic Reports confusion, Reports dizziness, Denies headache(s), Denies numbness, Denies weakness [facility] History I have reviewed the patient's past medical history: Yes Medical History: Reports:: Arrhythmia, Chronic Obstructive Pulmonary Disease (COPD), Gastroesophageal Reflux Disease(GERD), Hyperlipidemia, Hypertension, Lung Disease Denies:: Cancer, Diabetes Mellitus Type 1, Diabetes Mellitus Type 2, Internal Pacemaker, MRSA, Seizures *Have you ever received a pneumonia vaccine?: Yes *Have you received a flu vaccine this season?: Yes Other Medical History: Reports: Arthritis, Thyroid Disease Laterality Cases: Left: Lumpectomy Other Surgeries: Yes: Colonoscopy, EGD, Hysterectomy-Partial, Thyroidectomy (partial ), Tubal Ligation. No: Pacemaker Amputation: Yes (Right Hand ) Fractures: No - *Social History Last grade of school completed: 7th or 8th Smoking Status: Current every day smoker Tobacco Type: cigarettes # Packs/Day (cigarettes): 1 Alcohol Intake: never Alcohol Intake Frequency:: a few times a month Substance Use Type: denies use *Occupational Status:: disabled Housing: apartment Household Members: none *Travel in the last 8 weeks: None Family Hx:: Cancer, Coronary Artery Disease Meds Home Medications Medication Instructions Recorded Confirmed Type ALPRAZolam [Xanax 0.5mg tab] 0.5 mg PO TID PRN 08/14/17 01/25/20 History Albuterol Sulfate [Albuterol HFA 1 - 2 puffs IH Q4-6H PRN 08/14/17 01/25/20 History Inhaler] Budesonide/Formoterol Fumarate 2 puffs IH DAILY 08/14/17 01/25/20 History [Symbicort 160-4.5 Mcg Inhaler] Cetirizine HCl [Zyrtec] 10 mg PO DAILY 08/14/17 01/25/20 History Pantoprazole Sodium [Protonix 40mg 40 mg PO DAILY 08/14/17 01/25/20 History tablet] polyethylene glycoL 3350 [Miralax 17 gm PO DAILY 08/14/17 01/25/20 History 17gm Packet] amitriptyline 25 mg tablet 25 mg PO HS tab 06/06/19 01/26/20 History gabapentin 100 mg capsule 100 mg PO TID cap 06/06/19 01/25/20 History lisinopril 20 mg tablet 20 mg PO BID 06/18/19 01/25/20 History Amlodipine Besylate [Amlodipine 5 mg PO DAILY 12/16/19 01/25/20 History 5mg tab] Metoprolol Succinate 25 mg PO HS 12/16/19 01/25/20 History Fluticasone Propionate [Flonase 1 spray NS DAILY 01/25/20 01/25/20 History Allergy Relief NS] levalbuterol HCL [Levalbuterol HCl] 1.25 mg IH Q6 01/25/20 01/25/20 History Levothyroxine Sodium 25 mcg PO DAILY 01/26/20 01/26/20 History [Levothyroxine 25mcg (0.025mg) Tab] Allergies Allergy/AdvReac Type Severity Reaction Status Date / Time Sulfa (Sulfonamide Allergy Unknown Verified 10/31/19 18:50 Antibiotics) [SULFA (SULFONAMIDE ANTIBIOTICS)] Exam Vital signs and Labs for Last 24 Hours: Temp Pulse Resp BP Pulse Ox 97.6 F 85 18 113/61 90 L 01/27/20 08:00 01/27/20 08:00 01/27/20 08:00 01/27/20 08:00 01/27/20 08:00 Laboratory Results - last 24 hr 01/26/20 09:17: Vitamin B12 776 01/26/20 09:17: Folate 19.1 01/27/20 05:48: WBC 12.8 H D, RBC 2.91 L, Hgb 9.3 L, Hct 28.1 L, MCV 96.5, MCH 31.8 H, MCHC 33.0, RDW 13.6, Plt Count 248, MPV 9.3, Neut % (Auto) 75.9, Lymph % (Auto) 17.6, [place] % (Auto) 4.2, Eos % (Auto) 2.0, Baso % (Auto) 0.3, Neut # (Auto) 9.7 H, Lymph # (Auto) 2.3, [place] # (Auto) 0.5, Eos # (Auto) 0.3, Baso # (Auto) 0.0 I & O for Last 24 hours: Intake & Output 01/24/20 01/25/20 01/26/20 01/27/20 23:59 23:59 23:59 23:59 Intake Total 1832 / 1832 1299 / 1299 Output Total 4100 / 4100 2595 / 2595 Balance -2268 / -2268 -1296 / -1296 Weight 87 lb 9 oz 88 lb 2.958 oz 87 lb 6 oz Microbiology Reports for the Last 24 Hours: Microbiology 01/25/20 19:45 Blood Blood Culture - Preliminary Gram Positive Cocci
--- NOTE | 2020-01-27 20:34 | PC.NURSE ---
Pt is alert and oriented with episodes of forgetfulness. RR even and unlabored. Has been up to chair this shift. Has had no acute bleeding IV changed after pt pulled IV out of LAC. NS @ 75 ml/hr. Nicotine patch changed and is on R arm at this time. Bed alarm in place r/t fall risk. Hines in place and draining yellow urine to gravity. CB in reach. VSS. Have notified [facility] to make am appointment for f/u with Dr. Dean in one week from today.
[2020-01-28] VITALS (26 sets, daily range): BP systolic 93–127; BP diastolic 63–77; PULSE 61–81; RESP 16–18; TEMP 36.6–37.1; O2SAT 91–100; BMI 16.5
--- NOTE | 2020-01-28 05:18 | PC.NURSE ---
patient has rested on and off throughout shift. no epitaxis noted throughout shift. below left eye swollen an sore, ice pack applied.
[2020-01-28 06:42] LABS: Basophils % 0.4 % (0.1-2.0); Eosinophils # 0.6 K/mm3 (0.0-0.4); Lymphocytes # 2.6 K/mm3 (0.7-4.5); Lymphocytes % 24.9 % (10-50); Mean Corpuscular HGB Conc 32.4 g/dL (31.8-35.4); Mean Corpuscular Hemoglobin 31.6 pg (27.0-31.2); Mean Corpuscular Volume 97.6 fl (81-99); Mean Platelet Volume 8.5 fl (7.4-10.4); Monocytes # 0.3 K/mm3 (0.1-1.0); Monocytes % 2.8 % (1.7-9.3); Neutrophils # 6.9 K/mm3 (1.8-7.8); Neutrophils % 65.8 % (37.0-80.0); Platelet Count 227 K/mm3 (142-424); Red Cell Distribution Width 13.9 % (11.5-17.5); White Blood Count 10.4 K/mm3 (4.8-10.8)
[2020-01-28 07:20] LABS: Hemoglobin 7.6 g/dL (12.2-16.2)
[2020-01-28 07:21] LABS: Hematocrit 23.4 % (37.0-47.0)
--- NOTE | 2020-01-28 08:34 | HMH.ACPN2 ---
<Delma Vivar - Last Filed: 01/28/20 08:34> Internal Medicine - PN: Subj *Date: 01/28/20 *Time: 08:34 Interval history: Patient states she is feeling better this morning. She is coughed up a small amount of blood but is had no further bleeding from her nose. Her headache resolved after removal of the balloon. She states she did not rest well because someone called her at midnight and woke her up and she could go back to sleep. She did eat most all of her breakfast this morning. She was going to discharge to a halfway for rehab but has decided against this and wishes to go home to [facility]. Exam Vital signs and Labs for Last 24 Hours: Temp Pulse Resp BP Pulse Ox 98.1 F 64 16 93/63 L 91 L 01/28/20 04:00 01/28/20 06:05 01/28/20 04:00 01/28/20 04:00 01/28/20 06:05 Laboratory Results - last 24 hr 01/26/20 09:17: Folate 19.1 01/28/20 06:07: WBC 10.4, RBC 2.40 L, Hgb 7.6 L*, Hct 23.4 L*, MCV 97.6, MCH 31.6 H, MCHC 32.4, RDW 13.9, Plt Count 227, MPV 8.5, Neut % (Auto) 65.8, Lymph % (Auto) 24.9, [place] % (Auto) 2.8, Eos % (Auto) 6.0, Baso % (Auto) 0.4, Neut # (Auto) 6.9, Lymph # (Auto) 2.6, [place] # (Auto) 0.3, Eos # (Auto) 0.6 H, Baso # (Auto) 0.0 I & O for Last 24 hours: Intake & Output 01/25/20 01/26/20 01/27/20 01/28/20 11:59 11:59 11:59 11:59 Intake Total 888 / 888 2243 / 2243 1470 / 1470 Output Total 2900 / 2900 3795 / 3795 1200 / 1200 Balance -2011 / -2011 -1552 / -1552 270 / 270 Weight 89 lb 1 oz 87 lb 6 oz 93 lb Microbiology Reports for the Last 24 Hours: Microbiology 01/25/20 19:45 Blood Blood Culture - Final Staphylococcus epidermidis 01/25/20 19:45 Blood Blood Culture - Preliminary Gram Positive Cocci - Constitutional no acute distress - *Routine Respiratory Exam Present: CTA bilaterally - *Routine Cardiovascular Exam Present: RRR - *Routine Abdominal Exam Present: soft, normoactive bowel sounds. Absent: tenderness - *Routine Extremities Exam Absent: cyanosis, clubbing, edema - *Routine Skin Exam Present: warm. Absent: rash - *Routine Neurological Exam Present: alert, oriented X3 Assessment and Plan (1) Dehydration Current visit: Yes Status: Acute Category: Medical Code(s): E86.0 - Dehydration (2) Epistaxis Current visit: Yes Status: Acute Category: Medical Code(s): R04.0 - Epistaxis (3) Fall Current visit: Yes Status: Acute Qualifiers: Encounter type: initial encounter Qualified Code(s): W19.XXXA - Unspecified fall, initial encounter Category: Medical Code(s): W19.XXXA - Unspecified fall, initial encounter (4) Multiple abrasions Current visit: Yes Status: Acute Category: Medical Code(s): T07.XXXA - Unspecified multiple injuries, initial encounter (5) Weakness Current visit: Yes Status: Acute Category: Medical Code(s): R53.1 - Weakness (6) Back pain Current visit: No Status: Acute Category: Medical Code(s): M54.9 - Dorsalgia, unspecified (7) COPD (chronic obstructive pulmonary disease) Current visit: No Status: Acute Qualifiers: COPD type: unspecified COPD Qualified Code(s): J44.9 - Chronic obstructive pulmonary disease, unspecified Category: Medical Code(s): J44.9 - Chronic obstructive pulmonary disease, unspecified (8) Positive blood culture Current visit: Yes Status: Acute Category: Medical Code(s): R78.81 - Bacteremia (9) Blood loss anemia Current visit: Yes Status: Acute Category: Medical Code(s): D50.0 - Iron deficiency anemia secondary to blood loss (chronic) (10) Acute sinusitis Current visit: Yes Status: Acute Category: Medical Code(s): J01.90 - Acute sinusitis, unspecified (11) Anemia Current visit: Yes Status: Acute Category: Medical Code(s): D64.9 - Anemia, unspecified - Assessment and plan all Dx Assessment and Plan for all problems:: Tremaine
[2020-01-28 14:51] LABS: Covid-19 Nasal PCR Sendout Lex NOT DETECTED
--- NOTE | 2020-01-28 16:24 | PC.NURSE ---
Patient has received 2 units PRBC this shift and tolerated well, no s/s of blood transfusion reaction noted, no nasal bleeding noted this shift, vss, on RA, lung sounds reveal scattered wheezes, alert and oriented x4, abd firm but nontender, reports she has not had a BM for several days, given miralax per emar, no edema noted, peripheral pulses 2+, perrla, no s/s of distress noted, will continue to monitor.
[2020-01-28 17:19] LABS: Hematocrit 36.4 % (37.0-47.0); Hemoglobin 12.5 g/dL (12.2-16.2)
--- NOTE | 2020-01-28 19:12 | PC.NURSE ---
report given to ibeth
[2020-01-29 04:00] VITALS: BP 138/90; PULSE 69; RESP 16; TEMP 36.7; O2SAT 90
--- NOTE | 2020-01-29 04:49 | PC.NURSE ---
Addendum entered by Kacey Mantilla RN 01/29/20 05:35: Remains in contact precautions for positive blood cultures. Original Note: Pt is alert and oriented x4. Pt rested well with eyes closed this shift with no c/o pain. No acute changes noted from previous shift. Perrla noted bilaterally. 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 No edema noted thus far this shift. Teds on ble. Tolerated ra well with no c/o soa. Bilateral lungs noted clear t/o upon auscultation. RR noted even and unlabored. Denies N/V/D. Pt states she has not had a bm since 01/23. No abdominal distention noted or abdominal tender upon palpation. Pt agreed to drink prune juice this am upon wakening to aid in bowel movement. Refused to drink last evening, states she wants to sleep tonight instead of running into bathroom every 5 minutes . Occult stool specimen still needs to be collected. Tolerates diet well. Fc in place, noted c/d/i. Urine noted clear and bright yellow in color. Adequate urine output noted. VSS. Remains safe with bed alarm intact and functioning. Call light within reach. Will continue to monitor.
[2020-01-29 05:00] VITALS: BMI 17.2
--- NOTE | 2020-01-29 05:37 | PC.NURSE ---
Stool specimen obtained at this time. Results pending. No prune juice administered prior too.
[2020-01-29 05:56] LABS: Occult Blood,Stool Positive (Negative)
--- NOTE | 2020-01-29 06:01 | PC.NURSE ---
Positive occult blood stool specimen noted this am.
[2020-01-29 06:37] VITALS: PULSE 70; PULSE 75; O2SAT 93
[2020-01-29 07:14] VITALS: BP 116/76; PULSE 68; RESP 16; TEMP 36.6; O2SAT 97
[2020-01-29 07:19] LABS: Zinc 87 ug/dL (56-134)
--- NOTE | 2020-01-29 08:12 | PC.NURSE ---
rounded with Bill Fraire and Alex Velarde.
--- NOTE | 2020-01-29 08:20 | HMH.ACPN2 ---
Internal Medicine - PN: Subj *Date: 01/29/20 *Time: 08:20 Interval history: She rested fairly well last night. No complaints of headache today. She has been up to the chair. Legs still feel weak. She received 2 units of blood yesterday and tolerated this well. She had a bowel movement this morning. Exam Vital signs and Labs for Last 24 Hours: Temp Pulse Resp BP Pulse Ox 97.9 F 68 16 116/76 97 01/29/20 07:14 01/29/20 07:14 01/29/20 07:14 01/29/20 07:14 01/29/20 07:14 Laboratory Results - last 24 hr 01/26/20 09:17: Folate 19.1, Zinc 87 01/27/20 13:30: COVID-19 PCR Not detected 01/28/20 09:15: Blood Type A Positive, Antibody Screen Negative, Crossmatch (AHG) See Detail 01/28/20 09:25: Blood Type Confirm A Positive 01/28/20 16:56: Hgb 12.5 D, Hct 36.4 L 01/29/20 05:27: Stool Occult Blood Positive A I & O for Last 24 hours: Intake & Output 01/26/20 01/27/20 01/28/20 01/29/20 11:59 11:59 11:59 11:59 Intake Total 888 / 888 2243 / 2243 1950 / 1950 1322 / 1322 Output Total 2900 / 2900 3795 / 3795 2200 / 2200 1999 / 1999 Balance -2012 / -2012 -1552 / -1552 -250 / -250 -678 / -678 Weight 89 lb 1 oz 87 lb 6 oz 93 lb 97 lb 6 oz Microbiology Reports for the Last 24 Hours: Microbiology 01/25/20 19:45 Blood Blood Culture - Final Staphylococcus epidermidis 01/25/20 19:45 Blood Blood Culture - Final Staphylococcus epidermidis Narrative: She is sitting up in the chair. Alert and oriented. Color is normal. Lungs are clear to auscultation. Heart is regular. Abdomen is soft and nondistended with no tenderness. Extremities no edema. Hemoglobin is up to 2:12 units of blood. Her second stool was positive for occult blood likely from blood she had swallowed from her nosebleed Assessment and Plan (1) Epistaxis Current visit: Yes Status: Acute Category: Medical Code(s): R04.0 - Epistaxis (2) Blood loss anemia Current visit: Yes Status: Acute Category: Medical Code(s): D50.0 - Iron deficiency anemia secondary to blood loss (chronic) (3) Dehydration Current visit: Yes Status: Acute Category: Medical Code(s): E86.0 - Dehydration (4) Fall Current visit: Yes Status: Acute Qualifiers: Encounter type: initial encounter Qualified Code(s): W19.XXXA - Unspecified fall, initial encounter Category: Medical Code(s): W19.XXXA - Unspecified fall, initial encounter (5) Multiple abrasions Current visit: Yes Status: Acute Category: Medical Code(s): T07.XXXA - Unspecified multiple injuries, initial encounter (6) Weakness Current visit: Yes Status: Acute Category: Medical Code(s): R53.1 - Weakness (7) Back pain Current visit: No Status: Acute Category: Medical Code(s): M54.9 - Dorsalgia, unspecified (8) COPD (chronic obstructive pulmonary disease) Current visit: No Status: Acute Qualifiers: COPD type: unspecified COPD Qualified Code(s): J44.9 - Chronic obstructive pulmonary disease, unspecified Category: Medical Code(s): J44.9 - Chronic obstructive pulmonary disease, unspecified (9) Positive blood culture Current visit: Yes Status: Acute Category: Medical Code(s): R78.81 - Bacteremia (10) Acute sinusitis Current visit: Yes Status: Acute Category: Medical Code(s): J01.90 - Acute sinusitis, unspecified (11) Anemia Current visit: Yes Status: Acute Category: Medical Code(s): D64.9 - Anemia, unspecified - Assessment and plan all Dx Assessment and Plan for all problems:: She is stable for discharge. She reiterates the fact that she does not want to go to [facility] for inpatient rehab. She prefers to return to her apartment with home health and physical therapy. This will be arranged. She will be continued on 5 more days of antibiotics for her acute sinusitis. She is to follow-up with Dr. Dean on 02/02/2020 and
--- NOTE | 2020-01-29 09:50 | SW/DCPLANNER ---
Addendum entered by Arlin Mack 01/29/20 10:44: Jennifer has reviewed referral and stated that services will begin tomorrow for this patient. Original Note: Patient was accepted to [facility] then refused placement and chose to return back home with home health services. I have faxed patient information to Jennifer with [facility] (SN,PT,OT). Once patient information is reviewed I will follow up with Jennifer. Patient will discharge today. Patient has no other needs at home at this time.
--- NOTE | 2020-01-29 09:58 | PC.NURSE ---
pt's home med (Xanax 0.5mg tabs) counted with Ashanti Solis RN. Bottle has #46. Pt came to hospital with #46. Blue form signed by myself, Ashanti, and pt. Gave bottle back to pt as she is discharging home.
--- NOTE | 2020-01-29 10:30 | PC.NURSE ---
pt had (3) Gabapentin 100mg capsules in the lamination assembler her room. I returned all 3 to the [facility]. Bette Alatorre RN witnessed.
--- NOTE | 2020-01-29 11:55 | HMH.PHAINT ---
DISCHARGE COUNSELING COMPLETED.
--- NOTE | 2020-01-30 13:16 | HMH.DCSUM ---
General - General Admission date:: 01/25/20 <Damion Abel - 02/03/20 08:19> 01/25/20 <SlimkendallDelma - 01/30/20 13:40> Discharge date: 01/29/20 <GhazalaDelma - 01/30/20 13:40> HPI HPI: Ms. Tate is a 69-year-old female with a history of anxiety, hyperlipidemia, osteoporosis, H. pylori, hypertension, COPD, and multi-nodular goiter who presented to [facility] emergency room after a fall and inability to get up. She was also experiencing a nosebleed which she was unable to control. She describes a decline in the past few months with repeated falls. She states her falls are due to the warren and slipping and sliding with her socks on. She was last seen in the office on 12/18/2019 and was treated for pneumonia and abdominal cramping with nausea. She was to follow-up but did not keep this appointment. Laboratory data on admission show white blood cell count of 15,000 with a decrease to 9500 this a.m. Hemoglobin was 10.1 and with repeat this a.m. at 9.5. Blood chemistries show sodium of 131 potassium of 4 chloride 95 and CO2 of 29 with a BUN of 24 and creatinine of 1.10. Iron is noted to be normal at 91 today. She had numerous imaging tests with CT of the cervical spine showing mild degenerative changes with no acute traumatic findings, And with cervical spondylosis and degenerative disc changes most evidence at C5/[address] 11/08; Chest x-ray revealed no acute findings; right forearm x-ray revealed a previous amputation of the right hand/wrist with no acute findings; CT of the head and brain reveal no acute findings, mild chronic deep white matter, stable just over 9 mm meningioma with no significant change since February 2019, and paranasal sinus disease. X-ray of the right humerus shows no acute findings; X-ray of the right knee reveals no acute findings. X-ray of the pelvis reveals no acute findings. In the emergency room, patient was started on Rocephin IV and given morphine sulfate 2 mg once and a liter of IV fluids. Patient was brought in by ambulance and her biggest complaint was her pain in her tailbone. After discussion with her granddaughter, Jessi, they agreed to admit the patient due to her weakness and her falls. Initially the patient refused to stay, but when she had to have a balloon placed in her left nostril to stop the bleeding, she did consent to stay. <Delma Vivar - 01/30/20 13:40> Hospital Course Hospital Course: Anemia studies were ordered and ENT was consulted for her nosebleed. Physical therapy was also consulted. Physical therapy felt the patient would benefit from prison facility placement for short-term rehab. The patient was adamant that she wanted to be discharged home with home health rather than going to a prison facility. She was seen in consultation by Dr. Dean. He started her on afrin nasal spray and advised that he would remove the Rhino Rocket on 01/27/2020. She did complain of a persistent left-sided headache and earache which she attributed to the Rhino Rocket. Her blood cultures were growing gram-positive cocci, therefore vancomycin was added pending final cultures. Dr. Dean saw the patient on 01/27/20 and removed the Rhino Rocket. He applied Afrin nasal spray to both nostrils. He also recommended that she apply bacitracin ointment to the nostrils twice daily. The patient had no further bleeding from her nose but did cough up a small amount of blood which was likely from postnasal drainage. Her headache resolved and she was able to eat. Her H&H decreased and she had to be given 2 units of packed red blood cells. It improved from 7.6/23.4 to 12.5/36.4. The patient declined prison placement and wished to return to her home. She felt better after receiving the blood. Her second stool was positive for occult blood, likely from blood she had swallowed from her nosebleed. Her blood cultures were positive for Staphylococcus e
== END 2020-01-29 10:33 | disposition home health service (06) ==
LOC: ER 19:08 → 2ND 21:04
PROVIDERS: Otolaryngology; Admitting Provider Family Medicine; Emergency Provider Emergency Medicine; PCP Family Medicine; Visit Provider Family Medicine
DX: R04.0 Epistaxis (principal); J01.90 Acute sinusitis, unspecified; R78.81 Bacteremia; D50.0 Iron deficiency anemia secondary to blood loss (chronic); Z72.0 Tobacco use; I10 Essential (primary) hypertension; J44.9 Chronic obstructive pulmonary disease, unspecified; E78.5 Hyperlipidemia, unspecified; Z79.899 Other long term (current) drug therapy; Z88.0 Allergy status to penicillin; E86.0 Dehydration; E04.2 Nontoxic multinodular goiter; W01.0XXA Fall on same level from slipping, tripping and stumbling without subsequent striking against object, initial encounter; Y92.019 Unspecified place in single-family (private) house as the place of occurrence of the external cause; M21.931 Unspecified acquired deformity of right forearm
CPT/HCPCS: 30901; 36415; 70450; 71045; 72125; 72170; 73060; 73090; 73562; 80048; 80053; 81001; 82272; 82550; 82607; 82728; 82746; 83540; 83550; 83605; 84630; 85007; 85014; 85018; 85025; 85044; 86328; 86850; 87040; 87077; 87186; 93005; 94640; 94760; 94761; 96365; 96375; 97116; 97161; 99285; G0328; G0378; J2405; J3370; P9016; U0004

== ENCOUNTER → 2020-09-23 07:33 | Outpatient (CLI) | payer MEDICARE, MEDICAID, SELFPAY ==
--- NOTE | 2020-09-23 07:42 | CT_ITS ---
PROCEDURE: CT LUNG SCREENING CLINICAL INDICATION: H/O NICOTINE DEPENDENCE Current smoker 54 pack year smoking history COMPARISON: CT CT LUNG SCREENING from 04/10/2019 TECHNIQUE: The exam was performed on a GE Light Speed [address] scanner using 2.90 mGy CTDI. A low dose helical CT CHEST was performed on a multi-detector scanner. All CT scans at the facility use one or more dose reduction, viz: automated exposure control, ma/kV adjustment per patient size (including targeted exams where dose is matched to indication, i.e. head), or iterative reconstruction technique. The LDCT was performed in a facility that meets the criteria for the screening program. Data regarding this exam was submitted to ACR which is an approved registry. The order for this exam indicates that it came as a result of a lung cancer screening counseling shard decision-making visit that included all the elements required of such a visit including smoking cessation. The radiologist interpreting this exam meets the CMS criteria for the LDCT lung cancer screening program. The exam is reported using the Lung-RADS classification scale and reported to the ACR registry. NOTE: This study was performed for the specific purposes of lung cancer screening and is not an alternative to diagnostic chest CT. RADIATION DOSE: CTDI vol(CT dose Index-volume) = 2.90mG DLP (Dose Length Product) = 113.85 mGcm FINDINGS: COPD with centrilobular emphysema. No change 5 mm nodular opacity adjacent to the left aspect of the pulmonary artery image 47 series 4. There is some mild scarring in the lung bases. No suspicious nodules apparent. OTHER FINDINGS: Degenerative changes are present in the upper lumbar spine. There is mild lumbar scoliosis convex left. Coronary artery calcifications are present. IMPRESSION: Lung-RADS Category 1 Negative Follow-up: Continue annual screening with LDCT in 12 months Dictated by: Pino Parker MD 09/30/2020 13:44 Pino Parker MD in [place] 09/30/2020 13:44
--- NOTE | 2020-09-23 07:43 | MM_ITS ---
PROCEDURE INFORMATION: Exam: Screening 3D Mammography Exam date and time: 09/23/2020 7:43 AM Age: 70 years old Clinical indication: Screening exam; No personal or family HX of malignancy TECHNIQUE: Imaging protocol: Screening tomosynthesis and 2D mammography including computer-aided detection (CAD) when performed. COMPARISON: [facility] MM Dig screening mamm BI w/CAD 09/26/2017 10:18 AM FINDINGS: MAMMOGRAPHY: Breast composition: The breasts are heterogeneously dense, which may obscure small masses. Mass: No new suspicious masses. Architectural distortion: No suspicious distortion. Calcifications: No suspicious calcifications. Coarse benign-appearing calcifications noted in the anterior right upper outer quadrant. Asymmetric density: None. Skin thickening: None. Axillary adenopathy: None. IMPRESSION: No mammographic evidence of malignancy. Annual screening is recommended unless otherwise clinically indicated. ASSESSMENT: BI-RADS Category 2: Benign
--- NOTE | 2020-09-23 07:43 | XR_ITS ---
PROCEDURE: XR DEXA AXIAL SKELETON CLINICAL HISTORY: POST MENOPAUSAL COMPARISON: No exams were available for comparison FINDINGS: The right hip BMD is 0.617 with a T-score of -2.7. The left hip BMD is 0.535 with a T-score of -3.3. The lumbar spine BMD is 1.052 with a T-score of 0.0. IMPRESSION: This patient is considered osteoporotic according to the World Health Organization criteria. Fracture risk is high. Treatment is advised. Based on these results a follow-up exam is recommended in 1 year. Dictated by: Pino Parker MD 09/24/2020 08:24 Pino Parker MD in [place] 09/24/2020 08:24
== END ==
PROVIDERS: PCP Family Medicine; Visit Provider Family Medicine
DX: Z12.31 Encounter for screening mammogram for malignant neoplasm of breast (principal); Z13.820 Encounter for screening for osteoporosis; M81.0 Age-related osteoporosis without current pathological fracture; Z87.891 Personal history of nicotine dependence; Z12.2 Encounter for screening for malignant neoplasm of respiratory organs
CPT/HCPCS: 71271; 77063; 77067; 77080

== ENCOUNTER → 2020-12-03 10:03 | Outpatient (CLI) | payer MEDICARE, MEDICAID, SELFPAY ==
--- NOTE | 2020-12-03 10:21 | XR_ITS ---
PROCEDURE: XR LUMBAR SPINE MIN 4V CLINICAL INDICATION: Sciatica, unspecified side COMPARISON: DX XR LUMBAR SPINE MIN 4V from 06/09/2019 FINDINGS: There is mild lumbar scoliosis convex left. There is reversal of the thoracolumbar lordosis with severe degenerative disc disease at L1-L2 and L2-L3 with prominent sclerosis and endplate hypertrophic change laterally on the right at L2-L3. there is diffuse vascular calcification IMPRESSION: Degenerative disc disease L1-L2 and L2-L3 as described above which appears slightly worse compared to the previous exam Dictated by: Pino Parker MD 12/03/2020 10:49 Pino Parker MD in [place] 12/03/2020 10:49
--- NOTE | 2020-12-03 10:21 | XR_ITS ---
PROCEDURE: XR HIP LT 2-3V W/PELVIS CLINICAL INDICATION: Sciatica, unspecified side COMPARISON: CR XR PELVIS 1-2V from 01/25/2020 FINDINGS: No fracture or dislocation. No lytic or blastic change. There are minimal osteoarthritic changes of the hips. There is diffuse vascular calcification. Moderate amount of retained colonic feces noted with a nonspecific bowel gas pattern. IMPRESSION: No acute findings. Dictated by: Pino Parker MD 12/03/2020 10:46 Pino Parker MD in [place] 12/03/2020 10:46
== END ==
PROVIDERS: PCP Family Medicine; Visit Provider Family Medicine
DX: M25.552 Pain in left hip (principal); M54.32 Sciatica, left side
CPT/HCPCS: 72110; 73502

== ENCOUNTER → 2020-12-17 12:38 | Outpatient (CLI) | payer MEDICARE, MEDICAID, SELFPAY ==
--- NOTE | 2020-12-17 | MR_ITS ---
PROCEDURE: MR LUMBAR SPINE WO CON CLINICAL INDICATION: DDD Left-sided back pain, left leg pain and numbness COMPARISON: MR PACKAGER/O MRI-L-SPINE W/O from 07/29/2013 CR XR LUMBAR SPINE MIN 4V from 12/03/2020 TECHNIQUE: Standard multiplanar multiecho sequences are performed without contrast. 3-D MIP and myelographic images are also rendered and reviewed FINDINGS: There is mild lumbar scoliosis convex left. The the spinal cord ends at the L1-L2 level. There is also mild kyphosis of the lumbar spine. T12-L1: Unremarkable. L1-L2: There is degenerative disc disease with endplate hypertrophic change. There is mild right foraminal narrowing. L2-L3: Degenerative disc disease with bulging disc and endplate osteophytes. There is moderate to severe right-sided foraminal narrowing and moderate left foraminal narrowing. There is 3 mm retrolisthesis of L2 on L3 and left lateral translation of L2 on L3 by approximately 5 mm. There is mild loss of height of the right lateral aspect of L2. These findings have developed since the previous exam. There is bilateral lateral recess narrowing from facet hypertrophic change greater on the right. L3-L4: Facet and ligamentum hypertrophy with bilateral lateral recess and foraminal narrowing mild on the right and moderate on the left. Mild bilateral lateral recess narrowing from facet hypertrophy. L4-5: Moderate bilateral lateral recess narrowing from facet ligamentum hypertrophy with moderate bilateral foraminal narrowing. L5-S1: Mild concentric bulging disc with moderate facet and ligamentum hypertrophy with borderline canal stenosis at 12 mm. Moderate bilateral lateral recess narrowing the. There is a left foraminal and lateral broad-based disc protrusion causing severe left-sided foraminal narrowing with impingement upon the exiting L5 nerve root. This has developed since the previous exam. No acute fracture or dislocation. No extruded herniated disc apparent IMPRESSION: Multilevel lumbar spondylosis with scoliosis and kyphosis.. Multilevel disc bulges along with facet and ligamentum hypertrophy with varying degrees of lateral recess and foraminal narrowing. Please see above for detailed description at each level. Left foraminal and lateral disc protrusion at L5-S1 causing severe left-sided foraminal narrowing and impingement upon the exiting L5 nerve root. Dictated by: Pino Parker MD 12/19/2020 21:07 Pino Parker MD in [place] 12/19/2020 21:07
== END ==
PROVIDERS: PCP Family Medicine; Visit Provider Family Medicine
DX: M51.36 Other intervertebral disc degeneration, lumbar region (principal)
CPT/HCPCS: 72148; 76376

== ENCOUNTER → 2021-01-20 09:48 | Outpatient (POV) | payer MEDICARE, MEDICAID, SELFPAY ==
[2021-01-20 10:33] VITALS: BP 139/86; PULSE 81; RESP 18; TEMP 36.6; O2SAT 96; BMI 17.5
--- NOTE | 2021-01-20 11:43 | HMH.PMCON ---
Assessment and Plan (1) Degenerative joint disease (DJD) of lumbar spine Status: Chronic Category: Medical Code(s): M47.816 - Spondylosis without myelopathy or radiculopathy, lumbar region (2) Lumbar radiculopathy Status: Chronic Category: Medical Code(s): M54.16 - Radiculopathy, lumbar region - Assessment and plan all Dx Assessment and Plan for all problems:: We will schedule the patient for lumbar epidural steroid injection at L5-S1. She does have a recent MRI. She has tried and failed conservative therapies of ibuprofen, home stretching, ice and heat therapies, and physical therapy for short.. She has not gotten any relief. We will start the patient on Lyrica 75 mg 1 tablet p.o. twice daily. She has tried gabapentin in the past which caused her to have side effects, head fogginess. We will see her back in the clinic after injection for reevaluation of symptoms. Patient says that she is not on anticoagulation therapy. Risks and benefits of the procedure have been explained to the patient. Patient would like to proceed with the procedure. Possible side effects of corticosteroids have been discussed with the patient. Patient has been instructed to contact the clinic with any concerns before the next appointment. Dr. Mendenhall has reviewed this note and agrees with this plan of care. This note was dictated using voice recognition software and make contain errors or omissions. HPI - Data of Consult Patient: new to practice Consult date: 01/20/21 Requesting Physician: Pauly Hernandez APRN Primary Care Provider: Damion Abel MD - Consult Narrative Reason for consult: Left low back pain, left leg pain, left buttock pain, left groin pain History of present illness: Ms. Tate is a 70 year old female who presents today for consultation for left low back pain with radiation into left buttock, left hip, left groin and left leg. Pain does stop at the left calf area. She has been using heat with no significant relief. The patient says she does have paresthesia into the left lower extremity all the way to the foot. She rates her pain a 8 out of 10 today. She says that she feels as though her ankle is going to come off due to pain . She says that standing lying flat, walking stairs, and walking worsen her pain. He is unable to walk a block and a half and then developed severe pain to the point she has to sit down. Patient does ambulate to most places due to transportation issues. She says she is now having difficulty going anywhere due to pain. 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 She does still do lifting with her arm. She says sometimes she feels this contributes to her low back pain. She has tried taking ibuprofen but did stop taking the medicine due to contraindication with other medication she is currently taking. The patient has tried physical therapy in the past with no significant relief. She is also tried home stretching with no relief. She has tried gabapentin in the past which caused her to feel funny. As result, she has stopped the medication. The patient does have an MRI of the lumbar spine. Per the MRI report, patient does have severe left-sided foraminal narrowing with impingement upon the L5 nerve root. Patient was also noted to have, per MRI report, retrolisthesis of L2 and L3 with loss of height on the lateral aspect of L2. Patient is here today to discuss possible injective therapy. Patient does describe her pain as dull in nature CC: Pauly Hernandez APRN [facility] History I have reviewed the patient's past medical history: Yes Medical History: Reports:: Arrhythmia, Chronic Obstructive Pulmonary Disease (COPD), Gastroesophageal Reflux Disease(GERD), Hyperlipidemia, Hypertension, Lung Disease Denies:: Cancer, Diabetes Mellitus Type 1, Diabetes Mellitus Type 2, Internal Pacemaker, MRSA, Seizures *Have you ever received a pneumonia vaccine?:
== END ==
PROVIDERS: PCP Family Medicine; Visit Provider Clinical Nurse Specialist Family Health
DX: M47.896 Other spondylosis, lumbar region (principal); M54.16 Radiculopathy, lumbar region
CPT/HCPCS: 99202; G0463

== ENCOUNTER 2021-01-28 12:19 | Day surgery (SDC) | payer MEDICARE, MEDICAID, SELFPAY ==
[2021-01-28 12:45] VITALS: BP 132/87; PULSE 94; RESP 18; TEMP 36.6; O2SAT 98; BMI 17.4
[2021-01-28 13:48] VITALS: BP 138/99; PULSE 83; RESP 20; O2SAT 98
[2021-01-28 13:49] VITALS: BP 141/61; PULSE 87; RESP 18; O2SAT 98
[2021-01-28 13:52] VITALS: BP 141/61; PULSE 84; RESP 18; O2SAT 98
--- NOTE | 2021-01-28 14:24 | HMH.PMPROC ---
- Procedure Date: 01/28/21 Time: 14:24 Anesthesiologist:: Arleen Givens MD Complications:: None Pre-procedure Diagnosis:: Degenerative disc disease of the lumbar spine, lumbar radiculopathy Post-procedure Diagnosis:: Same Indications for Procedure:: Patient is a very pleasant 71-year-old white female who presents today with chronic low back pain radiating to her legs related to the above diagnosis. She is trialed and failed conservative treatment including oral pain medication and home stretching program for greater than 6 weeks. She has tried ibuprofen and gabapentin in the past with no significant relief and she states that the gabapentin makes her feel very funny. . The plan for today is for the patient to undergo a lumbar epidural steroid injection under fluoroscopy at L5-S1. Procedure Details:: Informed consent was obtained and the risk and benefits of the procedure was explained to the patient. The patient was taken to the procedure room. The patient was placed prone on the procedure table. The patient was prepped and draped in sterile fashion. C-arm fluoroscopy was used to view the lumbar spine. Skin and subcutaneous tissues were anesthetized using lidocaine. I placed an 18-gauge epidural needle and advanced into the L5-S1 interspace using fluoroscopic guidance and [id number] to air and saline. After confirmation of needle placement in the epidural space with dye I injected 1 mL of lidocaine 1.0% with Depo-Medrol 80 mg. Patient tolerated the procedure well with no complications. Plan and Disposition:: Follow-up with her in 2 weeks. Will reevaluate pain symptoms at that time.
== END 2021-01-28 13:49 | disposition home or self-care (01) ==
LOC: SC.PAINP 12:21
PROVIDERS: PCP Family Medicine; Visit Provider Anesthesiology Pain Medicine
DX: M51.16 Intervertebral disc disorders with radiculopathy, lumbar region (principal); E78.5 Hyperlipidemia, unspecified; I10 Essential (primary) hypertension; J44.9 Chronic obstructive pulmonary disease, unspecified; K21.9 Gastro-esophageal reflux disease without esophagitis; M19.90 Unspecified osteoarthritis, unspecified site; E89.0 Postprocedural hypothyroidism; Z72.0 Tobacco use
CPT/HCPCS: 62323; J1040; Q9966

== ENCOUNTER → 2021-03-03 11:13 | Outpatient (POV) | payer MEDICARE, MEDICAID, SELFPAY ==
[2021-03-03 11:25] VITALS: BP 121/84; PULSE 71; RESP 18; O2SAT 96; BMI 17.5
--- NOTE | 2021-03-03 12:27 | HMH.PAINSOAP ---
[facility] Pain Management SOAP Note Subjective:: Patient is a 71-year-old white female who presents today for follow-up after lumbar epidural steroid injection. This was the patient's #1 injection. Patient reports that she got significant relief with her left hip and left leg. She does continue to have left low back pain with radiation into left leg with numbness and tingling. Patient was given gabapentin in the past, however, reports that it made her feel funny . She was then given Lyrica but due to having drowsiness, she does not take the medication regularly. The side effects outweigh the benefits of the medication for the patient. She also takes amitriptyline prescribed by her primary care provider. Patient does have imaging that does show nerve root impingement. She would like to repeat the injection to see if this helps with her pain in the left leg. She did get about 60 to 70% relief with the initial injection for about 2 weeks. Review of Systems General: No recent weight changes, no fever, no sleep disturbances Respiratory: No cough, no shortness of air, no recurring pulmonary infections Cardiovascular/peripheral vascular: No chest pain, no palpitations, no edema, no shortness of breath Gastrointestinal: No new onset incontinence, normal bowel movements reported Genitourinary: No new onset incontinence Musculoskeletal: Low back pain with radiation into left leg with numbness and tingling left leg Psychiatric: [Normal mood/affect] Neurological: Weakness left leg Objective:: Physical exam General: Alert and oriented x3, no acute distress, pleasant and cooperative, [on room air], speech clear Lungs: Respirations even and unlabored, symmetrical chest expansion Eyes: PERRL Musculoskeletal: Flexion and extension of lumbar [spine] somewhat guarded secondary to pain, antalgic gait noted Assessment:: Degenerative disc disease lumbar spine with lumbar radiculopathy symptoms Plan:: We will schedule the patient for #2 lumbar epidural steroid injection. She is not on any anticoagulation therapy. If the patient does not get significant relief, she may be a spinal cord stimulator candidate. She and I did discuss the device today. She was given educational information regarding the device as well today. She is not interested in neurosurgery. She has tried failed conservative therapies of physical therapy in the past greater than 6 weeks along with continued home stretching. She has also tried anti-inflammatories. We will see the patient back after her lumbar epidural steroid injection at L5-S1 to see if she gets relief at this area. Patient is not on any anticoagulation therapy. Possible side effects of corticosteroids have been discussed with the patient. Risks and benefits of the procedure have been explained to the patient. Patient would like to proceed with the procedure. Patient has been instructed to contact the clinic with any concerns before the next appointment. Dr. Mendenhall has reviewed this note and agrees with this plan of care. This note was dictated using voice recognition software and make contain errors or omissions. [facility] History I have reviewed the patient's past medical history: Yes Medical History: Reports:: Arrhythmia, Chronic Obstructive Pulmonary Disease (COPD), Gastroesophageal Reflux Disease(GERD), Hyperlipidemia, Hypertension, Lung Disease Denies:: Cancer, Diabetes Mellitus Type 1, Diabetes Mellitus Type 2, Internal Pacemaker, MRSA, Seizures *Have you ever received a pneumonia vaccine?: Yes *Have you received a flu vaccine this season?: No Other Medical History: Reports: Arthritis, Thyroid Disease. Denies: Blood Transfusion Reaction Laterality Cases: Left: Lumpectomy Other Surgeries: Yes: Colonoscopy, EGD, Hysterectomy-Total, Hysterectomy-Partial, Thyroidectomy, Tubal Ligation, Other (right arm amputation). No: Pacemaker Amputation: No Fractures: No - *Social History Smoking Status: Current every d
== END ==
PROVIDERS: Visit Provider Clinical Nurse Specialist Family Health
DX: M51.16 Intervertebral disc disorders with radiculopathy, lumbar region (principal)
CPT/HCPCS: 99212; G0463

== ENCOUNTER 2021-03-18 14:12 | Day surgery (SDC) | payer MEDICARE, MEDICAID, SELFPAY ==
[2021-03-18 14:24] VITALS: BP 159/96; PULSE 97; RESP 18; TEMP 36; O2SAT 97; BMI 16.9
[2021-03-18 14:35] VITALS: BP 156/90; PULSE 80; RESP 18; O2SAT 96
[2021-03-18 14:36] VITALS: PULSE 85; RESP 18; O2SAT 96
--- NOTE | 2021-03-18 14:38 | HMH.PMPROC ---
- Procedure Date: 03/18/21 Time: 14:38 Anesthesiologist:: Gunnar Mendenhall MD Complications:: None Pre-procedure Diagnosis:: Degenerative disc disease of lumbar spine with lumbar radiculopathy symptoms Post-procedure Diagnosis:: Same Indications for Procedure:: Patient is a pleasant 71-year-old white female who we are treating for low back pain with lumbar radiculopathy symptoms. She has had good relief of her pain symptoms after her last lumbar epidural steroid injection. She still has some residual pain in her low back radiating down her left leg. We will do repeat lumbar epidural steroid injection under fluoroscopy today. Procedure Details:: Informed consent was obtained and the risk and benefits of the procedure was explained to the patient. The patient was taken to the procedure room. The patient was placed prone on the procedure table. The patient was prepped and draped in sterile fashion. C-arm fluoroscopy was used to view the lumbar spine. Skin and subcutaneous tissues were anesthetized using lidocaine. I placed an 18-gauge epidural needle and advanced into the L5-S1 interspace using fluoroscopic guidance and [id number] to air. After confirmation of needle placement in the epidural space with dye I injected 2 mL of lidocaine 1.5% with Depo-Medrol 80 mg. Patient tolerated the procedure well with no complications. Plan and Disposition:: We will follow-up with her in 2 weeks. Will reevaluate symptoms at that time.
[2021-03-18 14:50] VITALS: BP 144/84; PULSE 71; RESP 20; O2SAT 97
== END 2021-03-18 14:50 | disposition home or self-care (01) ==
LOC: SC.PAINP 14:12
PROVIDERS: PCP Family Medicine; Visit Provider Anesthesiology
DX: M51.16 Intervertebral disc disorders with radiculopathy, lumbar region (principal); E07.9 Disorder of thyroid, unspecified; E78.5 Hyperlipidemia, unspecified; I10 Essential (primary) hypertension; J44.9 Chronic obstructive pulmonary disease, unspecified; K21.9 Gastro-esophageal reflux disease without esophagitis; M19.90 Unspecified osteoarthritis, unspecified site; Z72.0 Tobacco use; F41.9 Anxiety disorder, unspecified; F32.9 Major depressive disorder, single episode, unspecified; I25.10 Atherosclerotic heart disease of native coronary artery without angina pectoris; Z88.2 Allergy status to sulfonamides
CPT/HCPCS: 62323; J1040; Q9966

== ENCOUNTER → 2021-04-07 11:01 | Outpatient (POV) | payer MEDICARE, MEDICAID, SELFPAY ==
[2021-04-07 11:44] VITALS: BP 132/96; PULSE 70; RESP 20; O2SAT 96; BMI 22.4
--- NOTE | 2021-04-07 12:01 | HMH.PAINSOAP ---
[facility] Pain Management SOAP Note Subjective:: Patient is a 71 year old white female who presents today for follow up after a LESI at L4-L5. She did get significant relief. She rates her pain a 3/10. She is also managed with Lyrica 75 mg 1 tablet po bid. She denies any side effects of the medication. Patient says that she is much more functional since the injection is able to stand and walk. She does feel the Lyrica has helped with the numbness and tingling into her left lower extremity. Patient says the only time she now has numbness and tingling is when she is walking. She does rate her pain a 3 out of 10 and continues with home stretching. Review of Systems General: No recent weight changes, no fever, no sleep disturbances Respiratory: No cough, no shortness of air, no recurring pulmonary infections Cardiovascular/peripheral vascular: No chest pain, no palpitations, no edema, no shortness of breath Gastrointestinal: No new onset incontinence, normal bowel movements reported Genitourinary: No new onset incontinence Musculoskeletal: Intermittent numbness and tingling in left leg, intermittent low back pain Psychiatric: [Normal mood/affect] Neurological: [Denies weakness in extremities], [denies balance issues] Objective:: Physical exam General: Alert and oriented x3, no acute distress, pleasant and cooperative Lungs: Respirations even and unlabored, symmetrical chest expansion Eyes: PERRL Musculoskeletal: Flexion and extension of lumbar [spine] somewhat guarded secondary to pain, [antalgic gait noted] Neurological: Speech clear, no gross sensory deficit Assessment:: Degenerative disc disease lumbar spine with lumbar radiculopathy symptoms Plan:: We will continue the patient on Lyrica 75 mg 1 tablet p.o. twice daily. We will give the patient 3 months of medication and plan to see her back in 3 months. Patient may be relocating to [facility]. She is undecided at this time. We will see the patient back in 3 months for reevaluation of symptoms. Risks and benefits of the medication have been explained in detail to the patient. If side effects do present with the medication, patient has been advised to stop the medication immediately and call the clinic. The patient has been advised to consult with his/her primary care provider and pharmacist regarding drug-drug interaction of medications currently prescribed. [facility] History I have reviewed the patient's past medical history: Yes Medical History: Reports:: Arrhythmia, Chronic Obstructive Pulmonary Disease (COPD), Gastroesophageal Reflux Disease(GERD), Hyperlipidemia, Hypertension, Lung Disease Denies:: Cancer, Diabetes Mellitus Type 1, Diabetes Mellitus Type 2, Internal Pacemaker, MRSA, Seizures *Have you ever received a pneumonia vaccine?: Yes *Have you received a flu vaccine this season?: Yes Other Medical History: Reports: Arthritis, Thyroid Disease. Denies: Blood Transfusion Reaction Laterality Cases: Left: Lumpectomy Other Surgeries: Yes: Colonoscopy, EGD, Hysterectomy-Total, Hysterectomy-Partial, Thyroidectomy, Tubal Ligation, Other (right arm amputation). No: Pacemaker Amputation: No Fractures: No - *Social History Smoking Status: Current every day smoker Tobacco Type: cigarettes # Packs/Day (cigarettes): 1 Alcohol Intake: never Alcohol Intake Frequency:: a few times a month Substance Use Type: denies use *Occupational Status:: retired Housing: house Household Members: none *Travel in the last 8 weeks: None Family Hx:: Cancer, Coronary Artery Disease
== END ==
PROVIDERS: Visit Provider Clinical Nurse Specialist Family Health
DX: M51.16 Intervertebral disc disorders with radiculopathy, lumbar region (principal)
CPT/HCPCS: 99212; G0463

== ENCOUNTER → 2021-07-18 10:33 | Outpatient (POV) | payer MEDICARE, MEDICAID, SELFPAY ==
[2021-07-18 10:53] VITALS: BP 139/91; PULSE 56; RESP 20; TEMP 36.7; O2SAT 98; BMI 16.2
--- NOTE | 2021-07-18 11:19 | HMH.PAINSOAP ---
[facility] Pain Management SOAP Note Subjective:: Is a very pleasant 71-year-old white female who presents today for follow-up. She is currently being treated for degenerative disc disease of the lumbar spine with lumbar radiculopathy. She has previously undergone a lumbar epidural steroid injection at L4-L5 and states that she got significant relief. She was also prescribed Lyrica 75 mg 1 tablet p.o. twice daily which she also states helped with her pain as well as the numbness and tingling. She states that she has since run out of the Lyrica and states that she does not need anymore at this time as she only experiences very sporadic numbness and tingling in her legs that is tolerable. She states that she was prescribed hydrocodone by her primary care physician for 12 days and she states that this has been helping with her low back and leg soreness and pain. She rates her pain today as a 4 out of 10. Objective:: General: Alert and oriented x3, no acute distress, pleasant and cooperative Lungs: Resps E/U, symmetric chest expansion Eyes: PERRL Musculoskeletal: limited flexion and extension of the lumbar spine secondary to pain. Deep tendon reflexes were normal in bilateral lower extremities. Motor exam was grossly intact in the bilateral lower extremities, antalgic gait noted. Neurological: Speech is clear, system development manager equal, no gross sensory deficits Assessment:: Degenerative disc disease of lumbar spine Lumbar radiculopathy Neuropathic pain Plan:: I discussed with the patient that she would benefit from a repeat lumbar epidural steroid injection for her ongoing low back and leg pain. It appears that the pain had initially gotten better but had worsened; however, she is currently taking hydrocodone which is helping with the pain but only has a few days left. The patient states she would like to reassess her pain after she finishes her hydrocodone to determine whether she still needs a repeat injection. I discussed with the patient that we would not be able to prescribe hydrocodone for her noncancer related, degenerative chronic pain symptoms. I also discussed with her that she may not need the hydrocodone in the future as the lumbar epidural steroid injection may alleviate her pain symptoms. We will follow-up with this patient in 1 month for reassessment of her chronic pain symptoms; however I discussed with the patient that she can contact us sooner should she need to schedule the above injection. Azam #[id number] prior drug screens were reviewed and appropriate. [facility] History Medical History: Reports:: Arrhythmia, Chronic Obstructive Pulmonary Disease (COPD), Gastroesophageal Reflux Disease(GERD), Hyperlipidemia, Hypertension, Lung Disease Denies:: Cancer, Diabetes Mellitus Type 1, Diabetes Mellitus Type 2, Internal Pacemaker, MRSA, Seizures *Have you ever received a pneumonia vaccine?: Yes *Have you received a flu vaccine this season?: Yes Other Medical History: Reports: Arthritis, Thyroid Disease. Denies: Blood Transfusion Reaction Laterality Cases: Left: Lumpectomy Other Surgeries: Yes: Colonoscopy, EGD, Hysterectomy-Total, Hysterectomy-Partial, Thyroidectomy, Tubal Ligation, Other (right arm amputation). No: Pacemaker Amputation: No Fractures: No - *Social History Smoking Status: Current every day smoker Tobacco Type: cigarettes # Packs/Day (cigarettes): 1 Alcohol Intake: never Alcohol Intake Frequency:: a few times a month Substance Use Type: denies use *Occupational Status:: disabled Housing: house Household Members: none *Travel in the last 8 weeks: None Family Hx:: Cancer, Coronary Artery Disease
== END ==
PROVIDERS: Visit Provider Anesthesiology Pain Medicine
DX: M51.16 Intervertebral disc disorders with radiculopathy, lumbar region (principal); G62.9 Polyneuropathy, unspecified
CPT/HCPCS: 99212; G0463

== ENCOUNTER → 2021-10-27 07:57 | Outpatient (CLI) | payer MEDICARE, MEDICAID, SELFPAY ==
--- NOTE | 2021-10-27 08:01 | CT_ITS ---
FINAL REPORT CLINICAL HISTORY: H/O NICOTINE DEPENDENCE,PULMONARY NODULE COMPARISON: September 23, 2020 and April 10, 2019 FINDINGS: Low-Dose Chest CT CTDI vol (mGy): 2.90 DLP (mGy-cm): 109.68 Axial images were obtained from the lung apex to the mid abdomen by computed tomography. Low-dose protocol was utilized. FINDINGS: CHEST: There is no axillary adenopathy. There is no hilar or mediastinal adenopathy. The heart is proper size. There is no pericardial or pleural effusion. Lung window images demonstrate changes of emphysema. There is a stable 4 mm nodule in the left upper lobe seen on image 27. No additional nodules or masses are identified. There is no consolidation. There is no lymphadenopathy. Limited images of the upper abdomen demonstrate a nonobstructing right renal stone. IMPRESSION: Stable 4 mm left upper lobe nodule. Lung RADS category 2. Recommend 12 month follow-up low-dose chest CT. Reviewed, Interpreted and Dictated by Eladia Stanley MD Transcribed by Germaine Chi Authenticated by Eladia Stanley MD on 10/27/2021 10:05:35 AM [facility]
--- NOTE | 2021-10-27 08:02 | XR_ITS ---
FINAL REPORT TECHNIQUE: Bone densitometry calculations of the lumbar spine and left hip were obtained. CLINICAL HISTORY: osteoporosis COMPARISON: September 23, 2020 FINDINGS: DEXA BONE DENSITY AXIAL SKELETON Using L1-4, the bone mineral density of the spine is 1.053 g/cm2, corresponding to T-score of 0.1 and a Z-score of 2.2. Bone mineral density is possibly falsely increased by osteophytosis particularly at L2-L3. Using the left hip, the bone mineral density of the femoral neck is 0.516 g/cm2, corresponding to a T-score of -3.5 and a Z-score of -1.9. NOTE: T-score: Standard deviation compared with peak bone mass of young adult mean. *Following the recommendations of the International Society of Bone Densitometry, classification of hip BMD is based on the lower of two T-scores; total hip or femoral neck. IMPRESSION: Osteoporosis: Lowest T-score is at or below -2.5. This patient's T-score meets the World Health Organization criteria for osteoporosis. Reviewed, Interpreted and Dictated by Eladia Stanley MD Transcribed by Germaine Chi Authenticated by Eladia Stanley MD on 10/27/2021 01:20:32 PM [facility]
--- NOTE | 2021-10-27 08:03 | MM_ITS ---
PROCEDURE INFORMATION: Exam: MG Bilateral Screening 3D Mammography Exam date and time: 10/27/2021 8:25 AM Age: 71 years old Clinical indication: Screening examination TECHNIQUE: Imaging protocol: Bilateral Screening tomosynthesis and 2D mammography including computer-aided detection (CAD) when performed. COMPARISON: 1. MG MM DIG SCREENING MAMM BI W/CAD 09/23/2020 8:17 AM 2. MG SCBI MM Dig screening mamm BI w/CAD 09/26/2017 10:18 AM 3. MG DMBAV DIG MAMM- ROBERTA ADD VIEWS 08/15/2013 1:13 PM 4. MG DMSB DIG MAMM-SCREEN ROBERTA 07/29/2013 10:22 AM FINDINGS: MAMMOGRAPHY: Breast composition: The breast is heterogeneously dense, which may obscure small masses. Mass: None. Architectural distortion: No new or suspicious architectural distortion. Calcifications: Possible developing density with associated calcifications in the upper outer anterior right breast should be further assessed with spot views in CC/MLO projection. Ultrasound should also be performed. Asymmetric density: No new or suspicious asymmetric density is present Skin thickening: None. Axillary adenopathy: None. IMPRESSION: Possible developing density with associated calcifications in the upper outer anterior right breast should be further assessed with spot views in CC/MLO projection. Ultrasound should also be performed. ASSESSMENT: BI-RADS category 0: Incomplete-need additional imaging evaluation
--- NOTE | 2021-10-27 09:05 | US_ITS ---
FINAL REPORT CLINICAL HISTORY: INTERMITTENT CYANOSIS 4 AND 5TH DIGIT RT FOOT ,NUMBNESS BLE'S,SMOKER,HTN,UNABLE TO OBTAIN RT BRACHIAL B/P R/T TO PRIOR AMPUTATION FINDINGS: Complete ankle brachial indices was obtained. The right STU is 0.93. The left STU is 0.95. IMPRESSION: ABIs are within normal limits bilaterally. Reviewed, Interpreted and Dictated by Eladia Stanley MD Transcribed by Elissa Flores Authenticated by Eladia Stanley MD on 10/27/2021 01:09:08 PM [facility]
== END ==
PROVIDERS: PCP Family Medicine; Visit Provider Nurse Practitioner
DX: Z87.891 Personal history of nicotine dependence (principal); Z12.2 Encounter for screening for malignant neoplasm of respiratory organs; Z12.31 Encounter for screening mammogram for malignant neoplasm of breast; M81.0 Age-related osteoporosis without current pathological fracture; R09.89 Other specified symptoms and signs involving the circulatory and respiratory systems; R23.0 Cyanosis
CPT/HCPCS: 71271; 77063; 77067; 77080; 93923

== ENCOUNTER → 2021-11-18 14:42 | Outpatient (CLI) | payer MEDICARE, MEDICAID, SELFPAY ==
--- NOTE | 2021-11-18 14:46 | US_ITS ---
PROCEDURE INFORMATION: Exam: US Right Breast, Complete MG Right Diagnostic Breast Tomosynthesis Exam date and time: 11/18/2021 3:26 PM Age: 71 years old Clinical indication: Patient recall on the basis of screening mammogram 10/27/2021 for further evaluation of possible asymmetry and calcifications in the right upper outer anterior breast. TECHNIQUE: Imaging protocol: Complete ultrasound of all four quadrants of the Right breast and the retroareolar regions, including ultrasound of the axilla when performed. Right Diagnostic tomosynthesis and 2D mammography including computer-aided detection (CAD) when performed. Unilateral or bilateral exam. COMPARISON: MG MM DIG MAMM DX UNILAT RT CAD 11/18/2021 2:46 PM FINDINGS: MAMMOGRAPHY: Magnification views demonstrate grouping of coarse as well as some linear calcifications of varying density, in the upper outer quadrant, anterior 3rd -which appear indeterminate with no related mass, asymmetry, or architectural distortion. ULTRASOUND: Right sonography, all 4 quadrants, retroareolar and axilla demonstrate no cystic or solid masses. Sonographically unremarkable right axillary lymph node. IMPRESSION: Indeterminate calcifications in the right breast, stereotactic biopsy suggested. ASSESSMENT: BI-RADS Category 4: Suspicious
== END ==
PROVIDERS: PCP Family Medicine; Visit Provider Nurse Practitioner
DX: R92.8 Other abnormal and inconclusive findings on diagnostic imaging of breast (principal)
CPT/HCPCS: 76641; 77061; 77065; G0279

== ENCOUNTER → 2021-11-25 08:06 | Outpatient (CLI) | payer MEDICARE, MEDICAID, SELFPAY ==
--- NOTE | 2021-11-25 08:10 | MM_ITS ---
FINAL REPORT CLINICAL HISTORY: rt breast calcifications FINDINGS: STEREOTACTIC GUIDED RIGHT BREAST BIOPSY, CLIP PLACEMENT, SPECIMEN RADIOGRAPH AND POST BIOPSY MAMMOGRAM Indication: Suspicious calcifications Findings: The stereotactic guided breast biopsy procedure was explained in detail to the patient including potential risk and benefits. The patient voiced an understanding of the procedure, was given an opportunity to ask questions, after which informed consent was obtained. The patient was positioned upon the stereotactic unit in the upright position. The breast was prepped in the usual sterile fashion. Subcutaneous soft tissues were anesthetized with lidocaine with epinephrine. A lateral to medial approach was utilized. Subsequently, with intermittent stereotactic guidance, the stereotactic biopsy needle was advanced into the breast in the region of the mammographic abnormality corresponding to recent diagnostic mammogram. Multiple vacuum assisted core samples were obtained. Sampling was thought to be adequate and the biopsy clip marker was deployed in the region of biopsy. Additional imaging as detailed below was performed. Specimen radiograph: Calcifications confirmed adequate Post procedure routine CC and MLO view mammogram: Post biopsy changes. Biopsy marker clip noted to be in the appropriate location. No appreciable residual calcifications. Patient tolerated the procedure well. No immediate complications. IMPRESSION: 1. Technically successful stereotactic guided biopsy of anterior right breast calcifications 2. Biopsy marker clip deployed 3. Post biopsy mammogram obtained as above Authenticated and [place]
--- NOTE | 2021-11-25 08:10 | MM_ITS ---
FINAL REPORT CLINICAL HISTORY: CLIP PLACEMENT S/P RT BREAST BX.. FINDINGS: MAMMOGRAM RIGHT TECHNIQUE: Standard digital 2-D views COMPARISON: None DENSITY: There are scattered areas of fibroglandular density FINDINGS: Post biopsy marker clip is noted to be in satisfactory position in the anterior right breast. No residual calcifications are identified.. Postbiopsy changes are noted. IMPRESSION: Biopsy marker clip in good position RECOMMENDATION: Pending histopathology evaluation Authenticated and [facility]
== END ==
PROVIDERS: PCP Family Medicine; Visit Provider Nurse Practitioner
DX: R92.1 Mammographic calcification found on diagnostic imaging of breast; R92.8 Other abnormal and inconclusive findings on diagnostic imaging of breast; D48.61 Neoplasm of uncertain behavior of right breast
CPT/HCPCS: 19081; 76098; 77065; 88305; 88342

== ENCOUNTER → 2022-08-02 16:00 | Outpatient (CLI) | payer MEDICARE, MEDICAID, SELFPAY ==
[2022-08-02 18:26] LABS: Adenovirus,PCR Not Detected (NotDetected); Bordetella Pertussis Not Detected (NotDetected); Chlamydophila Pneumoniae, PCR Not Detected (NotDetected); Coronavirus 19, PCR Not Detected (NotDetected); Coronavirus 229E Not Detected (NotDetected); Coronavirus NL63 Not Detected (NotDetected); Coronavirus OC43 Not Detected (NotDetected); Coronovirus HKU1,PCR Not Detected (NotDetected); Human Metapneumovirus Not Detected (NotDetected); Influenza A, PCR Not Detected (NotDetected); Influenza AH1, 2009 Not Detected (NotDetected); Influenza AH1, PCR Not Detected (NotDetected); Influenza AH3,PCR Not Detected (NotDetected); Influenza B, PCR Not Detected (NotDetected); Mycoplasma Pneumoniae, PCR Not Detected (NotDetected); Parainfluenza 1, PCR Not Detected (NotDetected); Parainfluenza 2, PCR Not Detected (NotDetected); Parainfluenza 3, PCR Not Detected (NotDetected); Parainfluenza 4, PCR Not Detected (NotDetected); Respiratory Syncytial Virus Not Detected (NotDetected); Rhinovirus/Enterovirus Not Detected (NotDetected)
[2022-08-02 18:58] LABS: Basophils # 0.2 K/mm3 (0-0.2); Basophils % 1.1 % (0.1-2.0); Eosinophils # 0.7 K/mm3 (0.0-0.4); Eosinophils % 4.4 % (0.1-12.0); Hematocrit 45.3 % (37.0-47.0); Hemoglobin 14.8 g/dL (12.2-16.2); Lymphocytes # 4.7 K/mm3 (0.7-4.5); Lymphocytes % 29.6 % (10-50); Mean Corpuscular HGB Conc 32.7 g/dL (31.8-35.4); Mean Corpuscular Hemoglobin 29.2 pg (27.0-31.2); Mean Corpuscular Volume 89.4 fl (81-99); Mean Platelet Volume 10.3 fl (7.4-10.4); Monocytes # 0.7 K/mm3 (0.1-1.0); Monocytes % 4.4 % (1.7-9.3); Neutrophils # 9.6 K/mm3 (1.8-7.8); Neutrophils % 60.5 % (37.0-80.0); Platelet Count 379 K/mm3 (142-424); Red Blood Count 5.07 M/mm3 (4.20-5.40); Red Cell Distribution Width 13.2 % (11.5-17.5); White Blood Count 15.9 K/mm3 (4.8-10.8)
[2022-08-02 19:01] LABS: MANUAL DIFFERENTIAL MANUAL DIFFERENTIAL (MANUAL DIFF)
[2022-08-02 20:44] LABS: Eosinophils % 5 % (0-3); Lymphocytes % 41 % (10-50); Monocytes % 2 % (2-9); Neutrophils % 52 % (42-76); Platelet Estimate Normal; RBC Morphology Normal; Total Cells Counted 100
== END ==
PROVIDERS: PCP Family Medicine; Visit Provider Family Medicine
DX: J06.9 Acute upper respiratory infection, unspecified (principal)
CPT/HCPCS: 85007; 85025; 87581; 87632; 87798; C9803; U0003; U0005

== ENCOUNTER → 2022-08-09 23:00 | Outpatient (CLI) | payer MEDICARE, MEDICAID, SELFPAY ==
[2022-08-09 18:29] LABS: Basophils # 0.1 K/mm3 (0-0.2); Basophils % 1.2 % (0.1-2.0); Eosinophils # 0.7 K/mm3 (0.0-0.4); Eosinophils % 6.2 % (0.1-12.0); Hemoglobin 16.5 g/dL (12.2-16.2); Lymphocytes # 2.6 K/mm3 (0.7-4.5); Lymphocytes % 24.4 % (10-50); Mean Corpuscular HGB Conc 33.1 g/dL (31.8-35.4); Mean Corpuscular Hemoglobin 29.7 pg (27.0-31.2); Mean Corpuscular Volume 89.8 fl (81-99); Mean Platelet Volume 10.6 fl (7.4-10.4); Monocytes # 0.4 K/mm3 (0.1-1.0); Monocytes % 3.8 % (1.7-9.3); Neutrophils # 6.8 K/mm3 (1.8-7.8); Neutrophils % 64.4 % (37.0-80.0); Platelet Count 378 K/mm3 (142-424); Red Blood Count 5.56 M/mm3 (4.20-5.40); Red Cell Distribution Width 13.6 % (11.5-17.5); White Blood Count 10.6 K/mm3 (4.8-10.8)
[2022-08-09 18:59] LABS: Anion Gap 9.4 mEq/L (5-15); Blood Urea Nitrogen 7 mg/dl (7-17); Calcium 9.3 mg/dl (8.4-10.2); Carbon Dioxide 30 mmol/L (22.0-30.0); Chloride 97 mmol/L (98-107); Chol/HDL Ratio 2.5 (1-3.5); Cholesterol 201 mg/dl (140-200); Estimated Glomerular Filt Rate 82 ml/min (>60); GFR (African American) 100 ML/MIN (>60); Glucose 86 mg/dl (74-100); HDL Cholesterol 79 mg/dl (40-60); Potassium 4.4 mmoL/L (3.5-5.1); Sodium 132 mmol/L (136-145); Triglycerides 129 mg/dl (30-150); VLDL Cholesterol 26 mg/dL (0-40)
[2022-08-09 19:00] LABS: Microalbumin/Creatinine Ratio 52.3
[2022-08-09 19:10] LABS: Creatinine,Urine Random 26 mg/dL (Not Estab.)
[2022-08-09 19:15] LABS: Free T4 (Free Thyroxine) 1.51 ng/dl (0.78-2.19)
[2022-08-09 20:08] LABS: Thyroid Stimulating Hormone 1.02 uIU/mL (0.465-4.68)
== END ==
PROVIDERS: PCP Family Medicine; Visit Provider Family Medicine
DX: E03.9 Hypothyroidism, unspecified (principal); I10 Essential (primary) hypertension; J44.9 Chronic obstructive pulmonary disease, unspecified
CPT/HCPCS: 80048; 80061; 82043; 82570; 84439; 84443; 85025

== ENCOUNTER → 2022-08-23 23:00 | Outpatient (CLI) | payer MEDICARE, MEDICAID, SELFPAY ==
[2022-08-23 18:39] LABS: Adenovirus,PCR Not Detected (NotDetected); Bordetella Pertussis Not Detected (NotDetected); Coronavirus 19, PCR Not Detected (NotDetected); Coronavirus 229E Not Detected (NotDetected); Coronavirus NL63 Not Detected (NotDetected); Coronavirus OC43 Not Detected (NotDetected); Coronovirus HKU1,PCR Not Detected (NotDetected); Human Metapneumovirus Not Detected (NotDetected); Influenza A, PCR Not Detected (NotDetected); Influenza AH1, 2009 Not Detected (NotDetected); Influenza AH1, PCR Not Detected (NotDetected); Influenza AH3,PCR Not Detected (NotDetected); Influenza B, PCR Not Detected (NotDetected); Parainfluenza 1, PCR Not Detected (NotDetected); Parainfluenza 2, PCR Not Detected (NotDetected); Parainfluenza 3, PCR Not Detected (NotDetected); Parainfluenza 4, PCR Not Detected (NotDetected); Respiratory Syncytial Virus Not Detected (NotDetected); Rhinovirus/Enterovirus Not Detected (NotDetected)
[2022-08-23 18:52] LABS: Basophils # 0.1 K/mm3 (0-0.2); Basophils % 0.9 % (0.1-2.0); Eosinophils # 1.1 K/mm3 (0.0-0.4); Eosinophils % 12.7 % (0.1-12.0); Hematocrit 47.4 % (37.0-47.0); Hemoglobin 14.9 g/dL (12.2-16.2); Lymphocytes # 2.8 K/mm3 (0.7-4.5); Lymphocytes % 32.8 % (10-50); Mean Corpuscular HGB Conc 31.5 g/dL (31.8-35.4); Mean Corpuscular Hemoglobin 28.8 pg (27.0-31.2); Mean Corpuscular Volume 91.4 fl (81-99); Mean Platelet Volume 10.5 fl (7.4-10.4); Monocytes # 0.4 K/mm3 (0.1-1.0); Monocytes % 4.3 % (1.7-9.3); Neutrophils # 4.2 K/mm3 (1.8-7.8); Neutrophils % 49.3 % (37.0-80.0); Platelet Count 316 K/mm3 (142-424); Red Blood Count 5.18 M/mm3 (4.20-5.40); Red Cell Distribution Width 13.9 % (11.5-17.5); White Blood Count 8.6 K/mm3 (4.8-10.8)
[2022-08-24 00:25] LABS: Chlamydophila Pneumoniae, PCR Not Detected (NotDetected); Mycoplasma Pneumoniae, PCR Not Detected (NotDetected)
== END ==
PROVIDERS: PCP Family Medicine; Visit Provider Family Medicine
DX: R53.1 Weakness (principal); R09.81 Nasal congestion; R05.9 Cough, unspecified
CPT/HCPCS: 85025; 87581; 87632; 87798; C9803; U0003; U0005

== ENCOUNTER → 2022-10-16 09:49 | Outpatient (CLI) | payer MEDICARE, MEDICAID, SELFPAY ==
--- NOTE | 2022-10-16 09:55 | XR_ITS ---
FINAL REPORT CLINICAL HISTORY: Left Elbow Pain FINDINGS: Three views of the left elbow were obtained. There is no acute fracture or dislocation. There is no joint effusion. The joint spaces are intact. There are no acute soft tissue abnormalities. IMPRESSION: No acute process. Reviewed, Interpreted and Dictated by Carloz Samayoa III, MD Transcribed by Sami Mejia Authenticated and [facility]
--- NOTE | 2022-10-16 09:55 | XR_ITS ---
FINAL REPORT CLINICAL HISTORY: chronic left hip pain FINDINGS: 2 views of the left hip and an AP pelvis were obtained. There is no acute fracture or dislocation. There are mild degenerative changes. There is moderate vascular calcification. IMPRESSION: Mild degenerative change. Reviewed, Interpreted and Dictated by Carloz Samayoa III, MD Transcribed by Sami Mejia Authenticated and [facility]
== END ==
PROVIDERS: PCP Family Medicine; Visit Provider Family Medicine
DX: R20.0 Anesthesia of skin (principal); G89.29 Other chronic pain; M25.552 Pain in left hip; M25.522 Pain in left elbow
CPT/HCPCS: 73070; 73502

== ENCOUNTER → 2023-02-08 23:41 | Outpatient (CLI) | payer MEDICARE, MEDICAID, SELFPAY ==
[2023-02-08 19:31] LABS: Basophils # 0.1 K/mm3 (0-0.2); Basophils % 0.5 % (0.1-2.0); Eosinophils # 0.6 K/mm3 (0.0-0.4); Eosinophils % 4.9 % (0.1-12.0); Hematocrit 52.5 % (37.0-47.0); Hemoglobin 16.5 g/dL (12.2-16.2); Lymphocytes # 2.2 K/mm3 (0.7-4.5); Lymphocytes % 19.2 % (10-50); Mean Corpuscular HGB Conc 31.4 g/dL (31.8-35.4); Mean Corpuscular Volume 95.6 fl (81-99); Monocytes # 0.5 K/mm3 (0.1-1.0); Neutrophils # 8.2 K/mm3 (1.8-7.8); Neutrophils % 71.4 % (37.0-80.0); Platelet Count 337 K/mm3 (142-424); Red Blood Count 5.49 M/mm3 (4.20-5.40); Red Cell Distribution Width 13.3 % (11.5-17.5); White Blood Count 11.4 K/mm3 (4.8-10.8)
[2023-02-08 19:37] LABS: Alanine Aminotransferase 18 U/L (12-78); Albumin Level 4.5 g/dl (3.5-5.0); Albumin/Globulin Ratio 1.5 (1.1-1.8); Alkaline Phosphatase 98 U/L (38-126); Anion Gap 16.2 mEq/L (5-15); Aspartate Amino Transferase 30 U/L (14-36); Bilirubin,Total 0.4 mg/dl (0.2-1.3); Blood Urea Nitrogen 10 mg/dl (7-17); Calcium 9.3 mg/dl (8.4-10.2); Carbon Dioxide 29 mmol/L (22.0-30.0); Chloride 100 mmol/L (98-107); Cholesterol 202 mg/dl (140-200); Estimated Glomerular Filt Rate 82 ml/min (>60); GFR (African American) 100 ML/MIN (>60); Globulin 3.1 g/dL (1.3-3.2); Glucose 92 mg/dl (74-100); Potassium 4.2 mmoL/L (3.5-5.1); Sodium 141 mmol/L (136-145); Total Protein,Serum 7.6 g/dl (6.3-8.2); Triglycerides 86 mg/dl (30-150); VLDL Cholesterol 17 mg/dL (0-40)
[2023-02-08 19:48] LABS: Chol/HDL Ratio 1.9 (1-3.5); HDL Cholesterol 109 mg/dl (40-60)
[2023-02-08 19:56] LABS: Direct LDL Cholesterol 66.56 mg/dL (100-129)
== END ==
PROVIDERS: PCP Family Medicine; Visit Provider Family Medicine
DX: R05.9 Cough, unspecified (principal); R53.1 Weakness; I25.118 Atherosclerotic heart disease of native coronary artery with other forms of angina pectoris
CPT/HCPCS: 80053; 80061; 85025

== ENCOUNTER → 2023-03-22 12:59 | Outpatient (CLI) | payer MEDICARE, MEDICAID, SELFPAY ==
--- NOTE | 2023-03-22 12:59 | CT_ITS ---
FINAL REPORT CLINICAL HISTORY: lung cancer screening current smoker, 1ppd x 45 years COMPARISON: 10/27/2022 FINDINGS: CT CHEST LOW DOSE SCREENING HISTORY: Screening exam for lung cancer. Current smoker, 45 pack year smoking history DOSE: CTDIvol: 2.9 mGy, DLP: 107.07 mGy*cm COMPARISON: 10/27/2022. TECHNIQUE: Axial CT without IV contrast administration using low dose protocol FINDINGS: Moderate to severe left coronary artery calcifications are present. There are moderate to severe changes of emphysema present as well as mild scarring. The small left upper lobe nodule seen on the prior CT of October is not seen on today's exam. There is a new partially solid nodule in the posterior right upper lobe measuring 7 mm in size, best seen on image #48. No pleural or pericardial effusion is seen . No adenopathy or mass lesion is present . IMPRESSION: New 7 mm posterior right upper lobe partially solid nodule, seen best in image #48. Moderate to severe left coronary artery calcifications and moderate to severe changes of emphysema. LUNG RADS CATEGORY 4A RECOMMENDATION: 3 month LDCT follow up Reviewed, Interpreted and Dictated by Carloz Samayoa III, MD Transcribed by Maia Maguire Authenticated and . [facility]
== END ==
PROVIDERS: PCP Family Medicine; Visit Provider Family Medicine
DX: J44.9 Chronic obstructive pulmonary disease, unspecified (principal); R06.2 Wheezing; R91.1 Solitary pulmonary nodule; Z12.2 Encounter for screening for malignant neoplasm of respiratory organs; Z87.891 Personal history of nicotine dependence
CPT/HCPCS: 71271

== ENCOUNTER → 2023-04-30 11:19 | Outpatient (CLI) | payer MEDICARE, MEDICAID, SELFPAY ==
--- NOTE | 2023-04-30 | CA_ITS ---
APPROVED REPORT Exam: Pharmacologic Technologist: Abby Robles Ht: 5 ft 2 in Wt: 96 lbs BSA: 1.40 m2 HR: 52 bpm BP: 147/86 mmHg Rhythm: NSR Indications: Chest pain Medical History Medications: Levabuterol,,,,, Alprazolam,,,,, Levothyroxine,,,,, Metoprolol,,,,, Pantoprazole,,,,, Nicotine,,,,, Montelukast,,,,, Prednisone,,,,, Ventolin,,,,, AmiTRIPTYLINE,,,,, BuPROPION,,,,, LoTREL,,,,, Stress Test Details Test: LEXISCAN HR Resting HR: 52 bpm Max Heart Rate (APMHR): 148 bpm Max HR Achieved: 68 bpm Target HR (85% APMHR): 126 bpm % of APMHR: 46 Recovery HR: 60 bpm BP Resting BP: 147.0/86.0 mmHg Max BP: 147.0/86.0 mmHg Recovery BP: 143.0/84.0 mmHg ECG Resting ECG: Sinus bradycardia Stress ECG: No significant ST changes Arrhythmia: None Clinical Exercise duration: 04:00 min Highest Stage Achieved: Exercise capacity: 1.0 METs Stress ECG Conclusion Symptoms: Dyspnea, Chest tightness Arrhythmias/Ectopy: None ST-T Changes: No significant ST changes Conclusion: Unremarkable Lexiscan stress test. Myoview images are reported separately. Test Summary REST 10:01 . . 52 . 147/ 86 . . Stage 1 . . . . . . . Myoview Injected Stage 1 01:00 . . 59 . . . . Stage 2 01:00 . . 64 . . . . Stage 3 01:00 . . 65 . 132/ 78 . . Stage 4 01:00 . . 63 . . . Stop exercise at 04:00 RECOVERY 01:00 . . 62 . 140/ 85 . . RECOVERY 02:00 . . 63 . 139/ 84 . . RECOVERY 03:00 . . 60 . 139/ 83 . . RECOVERY 04:00 . . 62 . 142/ 81 . . RECOVERY 05:00 . . 60 . 142/ 81 . . RECOVERY 05:14 . . 60 . 143/ 84 . . Electronically signed by : Anne Marie Matias MD 05/04/2023 11:30:11
--- NOTE | 2023-04-30 11:20 | NM_ITS ---
APPROVED REPORT Exam: Nuclear Stress Test Indication: HTN, HYPERLIPIDEMIA, TOB USE, C.P., SOB Patient Location: Outpatient Stress Tech: Abby Robles MS Tech:Sophia Pham SIMA RT (R)(N)(M) Ht: 5 ft 2 in Wt: 94 lbs Bra Size: A HR: 52 bpm BP: 147/86 mmHg BSA: 1.39 m2 TID: 0.93 BMI: 17.1 History: HTN, HYPERLIPIDEMIA, TOB USE, C.P., SOB Procedure: Patient received 0.4 mg of intravenous Lexiscan, resting heart rate 52 bpm, resting blood pressure 147/86 mmHg, with Lexiscan maximum heart rate achieved was 65 bpm which is % of the maximum predicted heart rate and blood pressure was 132/78 mmHg. With Lexiscan, patient denied any complaint of chest pain. Cardiac Stress and Resting SPECT Images: Cardiac Stress and Resting SPECT images were obtained using technetium 99m Myoview 31.4 mCi stress and 10.14 mCi at rest. Resting and stress imaging in supine and prone positions demonstrate no evidence of fixed or reversible perfusion defects. Gated imaging demonstrates normal global and regional LV systolic function. LVEF is calculated at 60%. Conclusion: No evidence of fixed or reversible perfusion defects. Gated imaging demonstrates normal global and regional LV systolic function. LVEF is calculated at 60%. Electronically signed by : Anne Marie Matias MD 05/04/2023 11:31:52
== END ==
PROVIDERS: PCP Family Medicine; Visit Provider Family Medicine
DX: I25.118 Atherosclerotic heart disease of native coronary artery with other forms of angina pectoris (principal); R06.02 Shortness of breath; R07.9 Chest pain, unspecified
CPT/HCPCS: 78452; 93017; 93018; A9502; J2785

== ENCOUNTER 2023-07-24 13:29 | Outpatient (CLI) | payer MEDICARE, MEDICAID, SELFPAY ==
--- NOTE | 2023-07-24 13:29 | CT_ITS ---
FINAL REPORT TECHNIQUE: After the administration of intravenous contrast, axial images through the chest were performed by computed tomography.This study was performed with techniques to keep radiation doses as low as reasonably achievable, (ALARA). Individualized dose reduction techniques using automated exposure control or adjustment of mA and/or kV according to the patient''s size were employed. CLINICAL HISTORY: follow 7mm lesion RUL COMPARISON: 03/22/2023 FINDINGS: There is no axillary adenopathy. There is no hilar or mediastinal adenopathy. The heart size is normal. There is no pericardial or pleural effusion. Limited images of the upper abdomen are unremarkable. There is a relative lack of intra-abdominal fat. There are advanced changes of centrilobular emphysema. Previously noted nodule in the posterior right upper lobe is stable at 7 mm. On today's exam, it is better defined and less irregular, but persists. This is best seen on image 47 of series 2 IMPRESSION: Persistent right upper lobe nodule. Neoplasia is not excluded. This is too small to accurately sample. Consider short interval follow-up CT in 3 months or PET/CT. Reviewed, Interpreted and Dictated by Delfino Soler MD Transcribed by June Cruz Authenticated and [facility]
[2023-07-24 14:24] LABS: Blood Urea Nitrogen 14 mg/dl (7-17); Estimated Glomerular Filt Rate 62 ml/min (>60); GFR (African American) 74 ML/MIN (>60)
[2023-07-24] MEDS: IOPAMIDOL-370 (76%);100ML BOTTLE 75 ML IV (14:41)
== END 2023-07-24 23:59 ==
LOC: RAD 13:29
PROVIDERS: PCP Family Medicine; Visit Provider Nurse Practitioner
DX: R91.1 Solitary pulmonary nodule (principal)
CPT/HCPCS: 36415; 71260; 82565; 84520; Q9967

== ENCOUNTER 2023-08-01 17:21 | Inpatient (IN) | payer MEDICARE, MEDICAID, SELFPAY ==
[2023-08-01 17:22] VITALS: BP 113/81; PULSE 64; RESP 18; TEMP 36.9; O2SAT 88; BMI 19.0
--- NOTE | 2023-08-01 17:26 | ED_ITS ---
Discharge Plan Disposition Patient Disposition: Admitted Clinical Impressions Clinical Impression: Pelvis fracture Discharge ED Provider: Jesi Beckman General Adult HPI <OPAL Hobson - Last Filed: 08/01/23 19:55> General Chief complaint: Fall Stated complaint: fall Time Seen by Provider: 08/01/23 17:26 Mode of Arrival: EMS Source of Information: Patient and EMS Limitations: No Limitations Description of Symptoms (Recalled from ER Triage Doc. by RN): Per EMS patient has had multiple falls in the last 24 hours. Patient was confused upon arrival with an oxygen saturation in the 60s. Patient is now alert and bruised from head to toe. History of Present Illness HPI narrative: Patient presents to the emergency department via EMS after being found down this afternoon in her assisted living facility. Patient herself is not oriented to circumstance, states that she was born in the 80s but had her hand cut off in 1924, is awake and interactive but not oriented. It is not known when she was last seen but was found by the assisted living facility today in the floor. Patient reports that her bilateral hips hurt but denies chest pain shortness of breath fever chills hemoptysis hematochezia melena nausea vomiting diarrhea currently. Patient believes that she tripped over my cat which is what caused her to fall. Does recall that she has had multiple falls recently but cannot tell me any causative reason. Patient does not know if she lost consciousness or not and does not know what time she fell whether it was day or night. Related Data Home Medications Medication Instructions Recorded Confirmed albuterol sulfate 90 mcg/actuation 2 puff inhalation Q4-6H PRN soa 08/01/23 08/01/23 aerosol inhaler (Ventolin HFA) amitriptyline 25 mg tablet 25 mg PO HS 08/01/23 08/01/23 levalbuterol HCl 1.25 mg/3 mL 1.25 mg inhalation Q6 COPD 08/01/23 08/01/23 solution for nebulization levothyroxine 25 mcg tablet 25 mcg PO DAILY 08/01/23 08/01/23 montelukast 10 mg tablet 10 mg PO DAILY 08/01/23 08/01/23 pantoprazole 40 mg tablet,delayed 40 mg PO DAILY 08/01/23 08/01/23 release Previous Rx's Medication Instructions Recorded metoprolol succinate 50 mg 50 mg PO DAILY #90 tabs 12/29/22 tablet,extended release 24 hr (Toprol XL) amlodipine 10 mg-benazepril 20 mg 1 cap PO DAILY #90 caps 01/18/23 capsule (Lotrel) fluticasone fur. 200 mcg-umeclid 1 inh inhalation DAILY #60 ea 03/12/23 62.5 mcg-vilant 25 mcg inhalat.powder (Trelegy Ellipta) pregabalin 75 mg capsule 75 mg PO Q12H #60 caps 03/21/23 alprazolam 0.5 mg tablet 0.5 mg PO BID PRN Anxiety #60 tabs 07/05/23 Allergies Allergy/AdvReac Type Severity Reaction Status Date / Time Sulfa (Sulfonamide Allergy Unknown Verified 07/05/23 12:04 Antibiotics) [SULFA (SULFONAMIDE ANTIBIOTICS)] [facility] <OPAL Hobson - Last Filed: 08/01/23 19:55> [facility] Disclaimer: The information contained in this section may have been updated after the patient was seen, as this information can be updated by other users. Medical History (Updated 08/01/23 @ 21:28 by Rosi Macedo RN) Allergic rhinitis Anxiety Anxiety disorder Arthritis of left hip Bulging lumbar disc Chronic pain syndrome Colon polyps COPD (chronic obstructive pulmonary disease) COPD (chronic obstructive pulmonary disease) Diverticulosis of colon Dizziness Dyspnea Hemorrhoids Hypertension Left arm numbness Left arm pain Low back pain with left-sided sciatica Lumbar disc disease Lumbar foraminal stenosis PVC (premature ventricular contraction) Sciatic leg pain Tobacco use disorder Surgical History History of amputation History of breast biopsy History of hysterectomy Hx of partial thyroidectomy Family History Other Cancer Diabetes Hypertension Social History (Updated 08/01/23 @ 21:29 by Rosi Macedo RN) Smoking Status: Current every day smoker tobacco type: cigarettes packs per day: 1 second hand exposure: Yes alcohol intake: never substance use type: denies use current occupational status: disabled Travel in the last 8 weeks: None household members: none housing: apartment lives independently: Yes marital status: single education level: high school service: No current occupational exposures/hazards: No caffeine: Yes special dinora needs: No agree to transfusion: No do you feel safe at home: Yes victim of physical abuse: No victim of emotional abuse: No victim of sexual abuse: No would you like helpful sources: No <OPAL Hobson - Last Filed: 08/01/23 19:55> ROS Obtained: Yes Systems reviewed as appropriate & no additional complaints except as documented Physical Exam <OPAL Hobson - Last Filed: 08/01/23 19:55> General General appearance: alert and in no apparent distress Head Head exam: other (Patient has ecchymosis across the bridge of the nose. Patient has no tenderness anywhere else in the cranium or deformities noted. Midface appears to be stable.) Eye Eye exam: Present normal appearance, PERRL and EOMI; Absent scleral icterus ENT ENT exam: Present normal exam, normal oropharynx and mucous membranes dry Neck Neck exam: Present normal inspection, full ROM and trachea midline; Absent tenderness, meningismus or lymphadenopathy Chest Chest inspection: Present normal inspection and symmetric chest wall rise; Absent tenderness Respiratory Respiratory exam: Present normal lung sounds bilaterally; Absent respiratory distress, wheezes or accessory muscle use Cardiovascular Cardiovascular exam: Present regular rate, normal rhythm, normal heart sounds, +S1 and +S2 Abdominal Exam Abdominal exam: Present soft, normal bowel sounds and other (Abdomen is scaphoid); Absent tenderness, guarding or rebound Extremities Exam Extremities exam: Present normal inspection, full ROM, tenderness and other (Patient has multiple areas of of subcutaneous ecchymosis on her bilateral upper extremities, right greater than left that appear to be in various stages of healing. She does have an area at the distal end of her right upper extremity stump from hand amputation that appears to have an abrasion of op); Absent edema, joint swelling or calf tenderness Back Exam Back exam: Present tenderness; Absent normal inspection (Patient has some pressure type skin changes on the dorsal spine as she has minimal subcutaneous fat but no obvious skin breaks over the dorsal spine) or paraspinal tenderness Neurological Exam Neurological exam: Present alert, CN II-XII intact, reflexes normal and other (Patient is not oriented to time and circumstance) Psychiatric Psychiatric exam: Present normal affect, normal mood and other (Patient is awake and interactive but I do not believe that she is oriented but instead mildly confused) Skin Skin exam: Present other (Patient has body wide areas of sores in various stages of healing contusions areas of subcutaneous ecchymosis, no active bleeding but evidence of recent bleeding. Her skin is cool to touch. 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 Patient has circumferential subcutaneous ecchymosis from mid forearm to the distal end of the stump. Patient has an open area that appears to be a skin tear at the very apex of the stump that is not currently bleeding. Patient is able to roll without assistance to either side although she does complain of tenderness at the pelvis. Pelvic rock is stable. No obvious deformities. Patient does have pressure skin changes at the bilateral angle of the hip laterally patient essentially has multiple bony prominences with minimal subcutaneous fat and all pressure points areas appears to have early signs of skin breakdown via color change Medical Decision Making <OPAL Hobson - Last Filed: 08/01/23 19:55> Medical Records Medical records reviewed: Yes I reviewed the patient's medical records. Azam Inquiry Pt receiving controlled substance: No Vital Signs: 08/01/23 17:22 08/01/23 19:00 08/01/23 19:30 Temperature 98.4 F Temperature Source Oral Pulse Rate 52 L 54 L Pulse Rate [Radial] 64 Respiratory Rate 18 Blood Pressure 111/72 111/75 Blood Pressure [Right Arm] 113/81 Blood Pressure Mean [Right Arm] 91 Blood Pressure Source [Right Arm] Automatic Cuff Blood Pressure Position [Right Arm] Sitting 02 Sat by Pulse Oximetry 88 L Oxygen Delivery Method Room Air 08/01/23 20:00 Temperature 97.6 F Temperature Source Oral Pulse Rate Pulse Rate [Radial] 82 Respiratory Rate 28 H Blood Pressure Blood Pressure [Right Arm] 141/80 H Blood Pressure Mean [Right Arm] 100 Blood Pressure Source [Right Arm] Automatic Cuff Blood Pressure Position [Right Arm] Supine 02 Sat by Pulse Oximetry 93 L Oxygen Delivery Method Lab Data Lab results reviewed: Yes I reviewed the patient's lab results. Lab Results 08/01/23 15:39: Procalcitonin 2.33 H 08/01/23 17:42: WBC 11.7 H, RBC 4.76, Hgb 14.2, Hct 43.6, MCV 91.5, MCH 29.9, MCHC 32.7, RDW 15.8, Plt Count 108 L, MPV 10.4, Neut % (Auto) 88.5 H, Lymph % (Auto) 8.0 L, [place] % (Auto) 3.1, Eos % (Auto) 0.1, Baso % (Auto) 0.3, Neut # (Auto) 10.4 H, Lymph # (Auto) 0.9, [place] # (Auto) 0.4, Eos # (Auto) 0.0, Baso # (Auto) 0.0, Total Counted 100, Neutrophils % (Manual) 75, Band Neutrophils % 9.0 H, Lymphocytes % (Manual) 6 L, Monocytes % (Manual) 10 H, Platelet Estimate Slight decrease, RBC Morphology Normal, Anisocytosis 2+, PT 11.2, INR 1.04, APTT 33.0 H, Fibrinogen 398 H, Sodium 133 L, Potassium 2.9 L*, Chloride 98, Carbon Dioxide 29, Anion Gap 8.9, BUN 27 H, Creatinine 0.80, Estimated Creat Clear 38, Estimated GFR 71, Est GFR ( Amer) 85, Glucose 115 H, Lactate 2.1, Calcium 8.4, Total Bilirubin 2.6 H, AST 89 H, ALT 48, Alkaline Phosphatase 112, Lactate Dehydrogenase 1313 H, Total Creatine Kinase 3022 H*, Total Protein 6.8, Albumin 3.7, Globulin 3.1, Albumin/Globulin Ratio 1.2 08/01/23 17:46: Magnesium 2.1, Troponin I 0.16 H 08/01/23 17:48: VBG pH 7.36, VBG pCO2 43.9, VBG pO2 33.9, VBG HCO3 24.2, VBG Total CO2 25.5, VBG O2 Saturation 64.1, VBG Base Excess -1.3 08/01/23 17:42 08/01/23 17:42 Orders (Tests/Meds): ED MEDICATIONS Generic Name Dose Route Start Last Admin Trade Name Freq PRN Reason Stop Dose Admin Acetaminophen 650 mg 08/01/23 19:45 Acetaminophen 325mg Tab PO 08/31/23 19:44 Q4HP PRN Fever or Mild Pain (1-3) Docusate Sodium 100 mg 08/02/23 09:00 Docusate Sodium 100 Mg Capsule PO 09/01/23 08:59 DAILY RAFAELA Ceftriaxone Sodium 1 gm/ 50 mls @ 100 mls/hr 08/01/23 19:00 08/01/23 19:10 Sodium Chloride IV 08/11/23 18:59 100 mls/hr Q24H RAFAELA Administration Azithromycin 500 mg/ Sodium 250 mls @ 250 mls/hr 08/01/23 19:00 08/01/23 19:41 Chloride IV 08/11/23 18:59 250 mls/hr Q24H RAFAELA Administration Sodium Chloride 1,000 mls @ 50 mls/hr 08/01/23 19:45 08/01/23 22:04 Sod Chlor 0.9% 1000ml Bag IV 08/31/23 19:44 50 mls/hr .Q20H RAFAELA Administration Morphine Sulfate 4 mg 08/01/23 19:45 08/01/23 22:50 Morphine 4mg/Ml Syringe IV 08/31/23 19:44 4 mg Q4HP PRN Administration Severe Pain (7-10) Nicotine 21 mg 08/01/23 19:45 Nicotine 21mg/24hr Patch TD 08/31/23 19:44 DAILYP PRN Nicotine Cravings Pantoprazole Sodium 40 mg 08/01/23 20:00 08/01/23 22:43 Pantoprazole 40mg Tablet PO 08/31/23 19:59 40 mg DAILY RAFAELA Administration Sodium Chloride 10 ml 08/01/23 19:45 Sodium Chloride 0.9% 10ml Flush Syringe IV 08/31/23 19:44 NEEDED PRN Maintain IV Site Discontinued Medications Generic Name Dose Route Start Last Admin Trade Name Freq PRN Reason Stop Dose Admin Acetaminophen 1,000 mg 08/01/23 17:45 08/01/23 17:51 Acetaminophen 1,000mg/100ml Vial IV 08/01/23 17:46 1,000 mg ONCE ONE Administration Enoxaparin Sodium 40 mg 08/01/23 20:00 08/01/23 22:43 Enoxaparin 40mg/0.4ml Syringe SQ 08/31/23 19:59 40 mg DAILY RAFAELA Administration Lactated Ringer's 1,000 mls @ 999 mls/hr 08/01/23 17:41 08/01/23 17:51 Lactated Ringer's 1000 Ml Bag IV 08/01/23 18:41 999 mls/hr .Q1H1M ONE Administration Potassium Chloride/Water 100 mls @ 50 mls/hr 08/01/23 19:08 08/01/23 22:05 Potassium Chloride 20meq/100ml Ivpb IV 08/01/23 21:07 50 mls/hr ONCE ONE Administration Iopamidol 200 ml 08/01/23 18:50 08/01/23 18:51 Iopamidol-370 (76%);100ml Bottle IV 08/01/23 18:51 200 ml ONCE ONE Administration Ketorolac Tromethamine 15 mg 08/01/23 17:45 08/01/23 17:47 Ketorolac 30mg/Ml Vial IV 08/01/23 17:46 Not Given ONCE ONE Potassium Chloride 40 meq 08/01/23 18:57 08/01/23 22:43 Potassium Chloride 20meq Tab PO 08/01/23 20:58 40 meq Q2H RAFAELA Administration Sodium Chloride 10 ml 08/01/23 18:50 08/01/23 18:51 Sodium Chloride 0.9% 10ml Syr (Rad Only) IV 08/01/23 18:51 10 ml ONCE ONE Administration Sodium Chloride 80 ml 08/01/23 18:50 08/01/23 18:51 0.9 % Sodium Chloride 50 Ml Vial IV 08/01/23 18:51 80 ml ONCE ONE Administration ORDERS Category Date Time Status CT angio abdomen pelvis Stat Cat Scan 08/01/23 17:[address] angio chest - dissection Stat Cat Scan 08/01/23 17:[address] angio head Stat Cat Scan 08/01/23 17:[address] angio neck Stat Cat Scan 08/01/23 17:[address] bony pelvis Stat Cat Scan 08/01/23 17:[address] cervical spine wo con Stat Cat Scan 08/01/23 17:[address] head/brain wo con Stat Cat Scan 08/01/23 17:[address] lumbar spine wo con Stat Cat Scan 08/01/23 17:[address] thoracic spine wo con Stat Cat Scan 08/01/23 17:41 Completed Activated Partial Thrombo Time Stat Lab 08/01/23 17:42 Completed CBC w/Auto Diff [Complete Blood Count Auto Diff] Stat Lab 08/01/23 17:42 Completed CK [Creatine Kinase] Stat Lab 08/01/23 17:42 Completed CMP [Comprehensive Metabolic Panel] Stat Lab 08/01/23 17:42 Completed Complete Blood Count Auto Diff AMLAB Lab 08/02/23 06:00 Ordered Comprehensive Metabolic Panel AMLAB Lab 08/02/23 06:00 Ordered Fibrinogen Stat Lab 08/01/23 17:42 Completed Haptoglobin Stat Lab 08/01/23 20:53 Received INR [Prothrombin Time INR] Stat Lab 08/01/23 17:42 Completed LDH [Lactate Dehydrogenase] Stat Lab 08/01/23 17:42 Completed Lactic Acid Stat Lab 08/01/23 17:42 Completed Magnesium AMLAB Lab 08/02/23 06:00 Ordered Magnesium Stat Lab 08/01/23 17:46 Completed Myoglobin Stat Lab 08/01/23 20:53 Received Procalcitonin Stat Lab 08/01/23 15:39 Completed Rapid PCR Covid and Flu A/B Stat Lab 08/01/23 23:05 Completed Troponin I Q3H Lab 08/01/23 20:53 Completed Troponin I Q3H Lab 08/02/23 00:00 Ordered Troponin I Stat Lab 08/01/23 17:46 Completed Urinalysis and Microscopic Stat Lab 08/01/23 22:58 Received Blood Culture Stat Micro 08/01/23 20:53 Received Venous Blood Gas Stat RT 08/01/23 17:48 Completed HEART Score History (anamnesis): Moderately suspicious Age: >65 years Risk factors: Atherosclerosis history Medical Decision Narrative: In summary patient is a 73-year-old female who presents to the emergency department for evaluation of multiple falls and being found down for an undetermined period of time. Patient is hypotensive with a systolic in the 90s at the time of my exam, EKG shows normal sinus rhythm on the monitor at the time my exam, rectal temperature is 98.4 however her O2 sat is 88% on room air on arrival. Physical exam is remarkable for a cachectic appearing significantly deconditioned 73-year-old female who appears to possibly have some degree of self-neglect as well. Patient has too numerous to count areas of ecchymosis small and large sores fresh and older areas of skin tears. Patient is tender to palpation over the bilateral hips although pelvic rock is stable and no significant orthopedic deformities are noted. Patient is awake and interactive but does not currently appear to be fully oriented. Patient appears to be normal sinus rhythm on the monitor at the bedside and has normal heart sounds and normal lung sounds. Patient has no meningismus signs or no evidence of focal neurologic deficit. Differential diagnosis includes accidental fall in jury, severe protein calorie malnutrition, ACS, stroke, PE, infection, skeletal fracture, long bone fracture, pelvic fracture etc. Initial workup will be conducted with hematologic labs twelve-lead EKG CT scan of the brain C T and L spines as well as CTA of the head chest and abdomen pelvis. Initial interventions include fluid bolus acetaminophen until we determine coagulation and renal status. Initial workup reviewed by me which shows hypokalemia and initial repletion was ordered, white count 11.7 with a left shift and 9% bands, CK was elevated at 3022, creatinine was 0.8 with a GFR of 71, LDH of 1313 initial troponin of 0.1. Upon repeat evaluation initiated antibiotics Rocephin and azithromycin. Patient's granddaughter arrived and the patient is immediately oriented to her and is more oriented to her circumstances but still has loss of time of when her accident occurred. Granddaughter states that the patient does take 2 sedating medications at bedtime and she last spoke to her at 8 PM last night. He did report that she was reporting shortness of breath and does not wear oxygen at baseline.. Discussed the patient's fractures and management of same with orthopedics. Likely nonoperative however he will evaluate in the a.m. I then discussed patient management with hospital medicine who agreed for admission. Patient and granddaughter notified and are agreeable with plan. <Jesi Beckman, DO - Last Filed: 08/01/23 23:58> Vital Signs: 08/01/23 17:22 08/01/23 19:00 08/01/23 19:30 Temperature 98.4 F Temperature Source Oral Pulse Rate 52 L 54 L Pulse Rate [Radial] 64 Respiratory Rate 18 Blood Pressure 111/72 111/75 Blood Pressure [Right Arm] 113/81 Blood Pressure Mean [Right Arm] 91 Blood Pressure Source [Right Arm] Automatic Cuff Blood Pressure Position [Right Arm] Sitting 02 Sat by Pulse Oximetry 88 L Oxygen Delivery Method Room Air 08/01/23 20:00 Temperature 97.6 F Temperature Source Oral Pulse Rate Pulse Rate [Radial] 82 Respiratory Rate 28 H Blood Pressure Blood Pressure [Right Arm] 141/80 H Blood Pressure Mean [Right Arm] 100 Blood Pressure Source [Right Arm] Automatic Cuff Blood Pressure Position [Right Arm] Supine 02 Sat by Pulse Oximetry 93 L Oxygen Delivery Method Lab Data Lab Results 08/01/23 15:39: Procalcitonin 2.33 H 02/28/24 17:42: WBC 11.7 H, RBC 4.76, Hgb 14.2, Hct 43.6, MCV 91.5, MCH 29.9, MCHC 32.7, RDW 15.8, Plt Count 108 L, MPV 10.4, Neut % (Auto) 88.5 H, Lymph % (Auto) 8.0 L, [place] % (Auto) 3.1, Eos % (Auto) 0.1, Baso % (Auto) 0.3, Neut # (Auto) 10.4 H, Lymph # (Auto) 0.9, [place] # (Auto) 0.4, Eos # (Auto) 0.0, Baso # (Auto) 0.0, Total Counted 100, Neutrophils % (Manual) 75, Band Neutrophils % 9.0 H, Lymphocytes % (Manual) 6 L, Monocytes % (Manual) 10 H, Platelet Estimate Slight decrease, RBC Morphology Normal, Anisocytosis 2+, PT 11.2, INR 1.04, APTT 33.0 H, Fibrinogen 398 H, Sodium 133 L, Potassium 2.9 L*, Chloride 98, Carbon Dioxide 29, Anion Gap 8.9, BUN 27 H, Creatinine 0.80, Estimated Creat Clear 38, Estimated GFR 71, Est GFR ( Amer) 85, Glucose 115 H, Lactate 2.1, Calcium 8.4, Total Bilirubin 2.6 H, AST 89 H, ALT 48, Alkaline Phosphatase 112, Lactate Dehydrogenase 1313 H, Total Creatine Kinase 3022 H*, Total Protein 6.8, Albumin 3.7, Globulin 3.1, Albumin/Globulin Ratio 1.2 08/01/23 17:46: Magnesium 2.1, Troponin I 0.16 H 08/01/23 17:48: VBG pH 7.36, VBG pCO2 43.9, VBG pO2 33.9, VBG HCO3 24.2, VBG Total CO2 25.5, VBG O2 Saturation 64.1, VBG Base Excess -1.3 Orders (Tests/Meds): ED MEDICATIONS Generic Name Dose Route Start Last Admin Trade Name Freq PRN Reason Stop Dose Admin Acetaminophen 650 mg 08/01/23 19:45 Acetaminophen 325mg Tab PO 08/31/23 19:44 Q4HP PRN Fever or Mild Pain (1-3) Docusate Sodium 100 mg 08/02/23 09:00 Docusate Sodium 100 Mg Capsule PO 09/01/23 08:59 DAILY RAFAELA Ceftriaxone Sodium 1 gm/ 50 mls @ 100 mls/hr 08/01/23 19:00 08/01/23 19:10 Sodium Chloride IV 08/11/23 18:59 100 mls/hr Q24H RAFAELA Administration Azithromycin 500 mg/ Sodium 250 mls @ 250 mls/hr 08/01/23 19:00 08/01/23 19:41 Chloride IV 08/11/23 18:59 250 mls/hr Q24H RAFAELA Administration Sodium Chloride 1,000 mls @ 50 mls/hr 08/01/23 19:45 08/01/23 22:04 Sod Chlor 0.9% 1000ml Bag IV 08/31/23 19:44 50 mls/hr .Q20H RAFAELA Administration Morphine Sulfate 4 mg 08/01/23 19:45 08/01/23 22:50 Morphine 4mg/Ml Syringe IV 08/31/23 19:44 4 mg Q4HP PRN Administration Severe Pain (7-10) Nicotine 21 mg 08/01/23 19:45 Nicotine 21mg/24hr Patch TD 08/31/23 19:44 DAILYP PRN Nicotine Cravings Pantoprazole Sodium 40 mg 08/01/23 20:00 08/01/23 22:43 Pantoprazole 40mg Tablet PO 08/31/23 19:59 40 mg DAILY RAFAELA Administration Sodium Chloride 10 ml 08/01/23 19:45 Sodium Chloride 0.9% 10ml Flush Syringe IV 08/31/23 19:44 NEEDED PRN Maintain IV Site Discontinued Medications Generic Name Dose Route Start Last Admin Trade Name Freq PRN Reason Stop Dose Admin Acetaminophen 1,000 mg 08/01/23 17:45 08/01/23 17:51 Acetaminophen 1,000mg/100ml Vial IV 08/01/23 17:46 1,000 mg ONCE ONE Administration Enoxaparin Sodium 40 mg 08/01/23 20:00 08/01/23 22:43 Enoxaparin 40mg/0.4ml Syringe SQ 08/31/23 19:59 40 mg DAILY RAFAELA Administration Lactated Ringer's 1,000 mls @ 999 mls/hr 08/01/23 17:41 08/01/23 17:51 Lactated Ringer's 1000 Ml Bag IV 08/01/23 18:41 999 mls/hr .Q1H1M ONE Administration Potassium Chloride/Water 100 mls @ 50 mls/hr 08/01/23 19:08 08/01/23 22:05 Potassium Chloride 20meq/100ml Ivpb IV 08/01/23 21:07 50 mls/hr ONCE ONE Administration Iopamidol 200 ml 08/01/23 18:50 08/01/23 18:51 Iopamidol-370 (76%);100ml Bottle IV 08/01/23 18:51 200 ml ONCE ONE Administration Ketorolac Tromethamine 15 mg 08/01/23 17:45 08/01/23 17:47 Ketorolac 30mg/Ml Vial IV 08/01/23 17:46 Not Given ONCE ONE Potassium Chloride 40 meq 08/01/23 18:57 08/01/23 22:43 Potassium Chloride 20meq Tab PO 08/01/23 20:58 40 meq Q2H RAFAELA Administration Sodium Chloride 10 ml 08/01/23 18:50 08/01/23 18:51 Sodium Chloride 0.9% 10ml Syr (Rad Only) IV 08/01/23 18:51 10 ml ONCE ONE Administration Sodium Chloride 80 ml 08/01/23 18:50 08/01/23 18:51 0.9 % Sodium Chloride 50 Ml Vial IV 08/01/23 18:51 80 ml ONCE ONE Administration ORDERS Category Date Time Status CT angio abdomen pelvis Stat Cat Scan 08/01/23 17:[address] angio chest - dissection Stat Cat Scan 08/01/23 17:[address] angio head Stat Cat Scan 08/01/23 17:[address] angio neck Stat Cat Scan 08/01/23 17:[address] bony pelvis Stat Cat Scan 08/01/23 17:[address] cervical spine wo con Stat Cat Scan 08/01/23 17:[address] head/brain wo con Stat Cat Scan 08/01/23 17:[address] lumbar spine wo con Stat Cat Scan 08/01/23 17:[address] thoracic spine wo con Stat Cat Scan 08/01/23 17:41 Completed Activated Partial Thrombo Time Stat Lab 08/01/23 17:42 Completed CBC w/Auto Diff [Complete Blood Count Auto Diff] Stat Lab 08/01/23 17:42 Completed CK [Creatine Kinase] Stat Lab 08/01/23 17:42 Completed CMP [Comprehensive Metabolic Panel] Stat Lab 08/01/23 17:42 Completed Complete Blood Count Auto Diff AMLAB Lab 08/02/23 06:00 Ordered Comprehensive Metabolic Panel AMLAB Lab 08/02/23 06:00 Ordered Fibrinogen Stat Lab 08/01/23 17:42 Completed Haptoglobin Stat Lab 08/01/23 20:53 Received INR [Prothrombin Time INR] Stat Lab 08/01/23 17:42 Completed LDH [Lactate Dehydrogenase] Stat Lab 08/01/23 17:42 Completed Lactic Acid Stat Lab 08/01/23 17:42 Completed Magnesium AMLAB Lab 08/02/23 06:00 Ordered Magnesium Stat Lab 08/01/23 17:46 Completed Myoglobin Stat Lab 08/01/23 20:53 Received Procalcitonin Stat Lab 08/01/23 15:39 Completed Rapid PCR Covid and Flu A/B Stat Lab 08/01/23 23:05 Completed Troponin I Q3H Lab 08/01/23 20:53 Completed Troponin I Q3H Lab 08/02/23 00:00 Ordered Troponin I Stat Lab 08/01/23 17:46 Completed Urinalysis and Microscopic Stat Lab 08/01/23 22:58 Received Blood Culture Stat Micro 08/01/23 20:53 Received Venous Blood Gas Stat RT 08/01/23 17:48 Completed ECG Data Tracing #1: I reviewed this ECG and interpreted as documented below: Normal sinus rhythm with a ventricular rate of 82 bpm. Motion artifact limits study, however does not meet STEMI criteria. Patient would appear to have U waves consistent with her hypokalemia. ECG initial impression date: 08/01/23 ECG initial impression time: 19:03 Medical Decision Narrative: In summary patient is a 73-year-old female who presents to the emergency department for evaluation of multiple falls and being found down for an undetermined period of time. Patient is hypotensive with a systolic in the 90s at the time of my exam, EKG shows normal sinus rhythm on the monitor at the time my exam, rectal temperature is 98.4 however her O2 sat is 88% on room air on arrival. Physical exam is remarkable for a cachectic appearing significantly deconditioned 73-year-old female who appears to possibly have some degree of self-neglect as well. Patient has too numerous to count areas of ecchymosis small and large sores fresh and older areas of skin tears. Patient is tender to palpation over the bilateral hips although pelvic rock is stable and no significant orthopedic deformities are noted. Patient is awake and interactive but does not currently appear to be fully oriented. Patient appears to be normal sinus rhythm on the monitor at the bedside and has normal heart sounds and normal lung sounds. Patient has no meningismus signs or no evidence of focal neurologic deficit. Differential diagnosis includes accidental fall injury, severe protein calorie malnutrition, ACS, stroke, PE, infection, skeletal fracture, long bone fracture, pelvic fracture etc. Initial workup will be conducted with hematologic labs twelve-lead EKG CT scan of the brain C T and L spines as well as CTA of the head chest and abdomen pelvis. Initial interventions include fluid bolus acetaminophen until we determine coagulation and renal status. Initial workup reviewed by me which shows hypokalemia and initial repletion was ordered, white count 11.7 with a left shift and 9% bands, CK was elevated at 3022, creatinine was 0.8 with a GFR of 71, LDH of 1313 initial troponin of 0.1. Upon repeat evaluation initiated antibiotics Rocephin and azithromycin. Patient's granddaughter arrived and the patient is immediately oriented to her and is more oriented to her circumstances but still has loss of time of when her accident occurred. Granddaughter states that the patient does take 2 sedating medications at bedtime and she last spoke to her at 8 PM last night. He did report that she was reporting shortness of breath and does not wear oxygen at baseline.. Discussed the patient's fractures and management of same with orthopedics. Likely nonoperative however he will evaluate in the a.m. I then discussed patient management with hospital medicine who agreed for admission. Patient and granddaughter notified and are agreeable with plan. I was consulted by the SILAS, and we discussed the complexity of the problems being addressed. I approved the treatment and management plan for this patient's care in the emergency department, thus performing a substantive portion of the medical decision making. Jesi Beckman, DO Critical Care <OPAL [facility] - Last Filed: 08/01/23 19:55> Critical Care Time Critical Care Time: Yes Attestation: On 08/01/23, the high probability of a clinically significant, sudden or life threatening deterioration of the following system(s) required my full and direct attention, intervention and personal management cardiopulmonary, orthopedic. The time I documented below is in addition to time spent performing reported procedu res but includes the following listed in this critical care notation. Total Time Total Critical Care Time: 60
--- NOTE | 2023-08-01 17:41 | CT_ITS ---
PROCEDURE INFORMATION: Exam: CTA Head Without And With Contrast, Arteriography Exam date and time: 08/01/2023 6:43 PM Age: 73 years old Clinical indication: Injury or trauma; Fall; Blunt trauma; Head and neck; Additional info: Trauma, critical injury suspected TECHNIQUE: Imaging protocol: Computed tomographic angiography of the head without and with contrast. Exam focused on the arteries. 3D rendering (Not supervised by radiologist): MIP and/or 3D reconstructed images were created by the technologist. Radiation optimization: All CT scans at this facility use at least one of these dose optimization techniques: automated exposure control; mA and/or kV adjustment per patient size (includes targeted exams where dose is matched to clinical indication); or iterative reconstruction. Contrast material: ISOVUE 370; Contrast volume: 100 ml; Contrast route: INTRAVENOUS (IV); COMPARISON: CT HEAD/BRAIN WO CON 08/01/2023 6:25 PM FINDINGS: ANTERIOR CIRCULATION: Right internal carotid artery: Intracranial segment is patent with no significant stenosis or occlusion. No aneurysm. Right middle cerebral artery: No occlusion or significant stenosis. No aneurysm. Right anterior cerebral artery: No occlusion or significant stenosis. No aneurysm. Left internal carotid artery: Intracranial segment is patent with no significant stenosis. No aneurysm. Left middle cerebral artery: No occlusion or significant stenosis. No aneurysm. Left anterior cerebral artery: No occlusion or significant stenosis. No aneurysm. POSTERIOR CIRCULATION: Right vertebral artery: No occlusion or significant stenosis. No aneurysm. Left vertebral artery: No occlusion or significant stenosis. No aneurysm. Basilar artery: No occlusion or significant stenosis. No aneurysm. Right posterior cerebral artery: No occlusion or significant stenosis. No aneurysm. Left posterior cerebral artery: No occlusion or significant stenosis. No aneurysm. HEAD: Brain: No intracranial hemorrhage, mass effect, or midline shift. 1.5 cm calcified meningioma right frontal lobe unchanged. Cerebral ventricles: Normal. No ventriculomegaly. Bones/joints: Unremarkable. No acute fracture. Paranasal sinuses: Visualized sinuses are normal. No fluid levels. Mastoid air cells: Visualized mastoids are normal. No mastoid effusion. Soft tissues: Unremarkable. IMPRESSION: No large vessel occlusion or significant stenosis.
--- NOTE | 2023-08-01 17:41 | CT_ITS ---
PROCEDURE INFORMATION: Exam: CT Cervical Spine Without Contrast Exam date and time: 08/01/2023 6:28 PM Age: 73 years old Clinical indication: Injury or trauma; Fall; Additional info: Trauma, critical injury suspected TECHNIQUE: Imaging protocol: Computed tomography of the cervical spine without contrast. Total images: 318 Radiation optimization: All CT scans at this facility use at least one of these dose optimization techniques: automated exposure control; mA and/or kV adjustment per patient size (includes targeted exams where dose is matched to clinical indication); or iterative reconstruction. COMPARISON: CT CERVICAL SPINE WO CON 01/25/2020 7:08 PM FINDINGS: Bones/joints: There is a nonspecific reversal of the normal cervical lordosis. Disc space narrowing and bilateral neural foraminal narrowing noted C5-C6 and C6-C7. 2 mm anterolisthesis of C7 on T1. No evidence of acute fracture. Prevertebral and retropharyngeal spaces: Prevertebral soft tissues are within normal limits. Lungs: Lung apices are normal. Soft tissues: Unremarkable. IMPRESSION: 1. There is a nonspecific reversal of the normal cervical lordosis. 2. 2 mm anterolisthesis of C7 on T1. 3. Prevertebral soft tissues are within normal limits. 4. No evidence of acute fracture.
--- NOTE | 2023-08-01 17:41 | CT_ITS ---
PROCEDURE INFORMATION: Exam: CTA Abdomen and Pelvis With Contrast Exam date and time: 08/01/2023 6:47 PM Age: 73 years old Clinical indication: Injury or trauma; Fall; Additional info: Trauma, critical injury suspected TECHNIQUE: Imaging protocol: Computed tomographic angiography of the abdomen and pelvis with contrast. Exam focused on the arteries. 3D rendering (Not supervised by radiologist): MIP and/or 3D reconstructed images were created by the technologist. Radiation optimization: All CT scans at this facility use at least one of these dose optimization techniques: automated exposure control; mA and/or kV adjustment per patient size (includes targeted exams where dose is matched to clinical indication); or iterative reconstruction. Contrast material: ISOUVE 370; Contrast volume: 100 ml; Contrast route: INTRAVENOUS (IV); COMPARISON: CT BONY PELVIS 08/01/2023 6:38 PM FINDINGS: Aorta: Dense atherosclerotic calcification throughout the aorta and iliac arteries. No evidence of aneurysm or dissection. Celiac trunk and mesenteric arteries: No occlusion or significant stenosis. Renal arteries: No occlusion or significant stenosis. Right iliac arteries: No occlusion or significant stenosis. Left iliac arteries: No occlusion or significant stenosis. Liver: Scattered subcentimeter simple appearing liver cysts. Liver appears mildly fatty. No suspicious hepatic abnormality. Gallbladder and bile ducts: Unremarkable. No calcified stones. No ductal dilation. Pancreas: Unremarkable. No mass. No ductal dilation. Spleen: Unremarkable. No splenomegaly. Adrenal glands: Moderate bilateral adrenal hypertrophy. No discrete adrenal nodule or hemorrhage. Kidneys and ureters: Subcentimeter bilateral renal cortical cysts appear simple. No solid renal mass or hydronephrosis. Stomach and bowel: Significant fecal retention throughout the colon. No bowel wall thickening or evidence of bowel obstruction. Appendix: No evidence of appendicitis. Intraperitoneal space: Unremarkable. No free air. No significant fluid collection. Lymph nodes: Unremarkable. No enlarged lymph nodes. Urinary bladder: Unremarkable. No mass. Reproductive: Uterus is surgically absent. No adnexal abnormality. Bones/joints: Fractures of the right sacral ala, S2 segment of the sacrum and right pubic rami as described on CT pelvis from the same day. Mild anterior wedge compression the L4 vertebra. Lumbar scoliosis with severe multilevel degenerative disc disease. Soft tissues: Unremarkable. IMPRESSION: Fractures of the sacrum, right pubic rami and L4 vertebra further described on CT pelvis from the same day. Otherwise significant chronic osseous and atherosclerotic changes as noted.
--- NOTE | 2023-08-01 17:41 | CT_ITS ---
PROCEDURE INFORMATION: Exam: CT Pelvis Without Contrast; Skeletal Exam date and time: 08/01/2023 6:38 PM Age: 73 years old Clinical indication: Injury or trauma; Additional info: Trauma, critical injury suspected TECHNIQUE: Imaging protocol: Computed tomography of the pelvis without contrast. Exam focused on the skeleton. Radiation optimization: All CT scans at this facility use at least one of these dose optimization techniques: automated exposure control; mA and/or kV adjustment per patient size (includes targeted exams where dose is matched to clinical indication); or iterative reconstruction. COMPARISON: CT ABDOMEN PELVIS WO CON 12/16/2019 10:06 AM FINDINGS: Stomach and bowel: Significant fecal retention throughout the colon. Bones/joints: Comminuted intra-articular mildly displaced right sacral ala fracture. Mildly displaced segmental fracture of the right inferior pubic ramus. Moderately displaced significantly comminuted fracture of the right superior pubic ramus. Mild anterior wedge compression fracture of indeterminate age involving L4. Mildly displaced fracture of the S2 segment of the sacrum. Soft tissues: Unremarkable. IMPRESSION: 1. Fractures of the right ala and S2 segment of the sacrum 2. Fractures of the right superior and inferior pubic rami 3. Age-indeterminate mild anterior wedge compression fracture of L4
--- NOTE | 2023-08-01 17:41 | CT_ITS ---
PROCEDURE INFORMATION: Exam: CT Lumbar Spine Without Contrast Exam date and time: 08/01/2023 6:34 PM Age: 73 years old Clinical indication: Injury or trauma; Fall; Additional info: Trauma, critical injury suspected TECHNIQUE: Imaging protocol: Computed tomography of the lumbar spine without contrast. Radiation optimization: All CT scans at this facility use at least one of these dose optimization techniques: automated exposure control; mA and/or kV adjustment per patient size (includes targeted exams where dose is matched to clinical indication); or iterative reconstruction. COMPARISON: MR LUMBAR SPINE WO CON 12/17/2020 12:54 PM FINDINGS: Bones/joints: Mild levoscoliosis of the lumbar spine. Severe degenerative disc space narrowing with disc bulge and uncovertebral spurring of the L1-L2 and L2-L3 disc levels. More moderate degenerative changes in the lower lumbar disc levels. Comminuted and mildly displaced fracture of the right sacral ala entering the right sacroiliac joint. No other acute fracture. Lungs: Patchy bilateral lower lobe airspace disease in the lungs. Vasculature: Dense atherosclerotic calcification of the aorta and iliac arteries. No evidence of aneurysm. Soft tissues: Unremarkable. IMPRESSION: 1. Comminuted mildly displaced intra-articular fracture of the right sacral ala 2. Mild lumbar scoliosis with moderate to severe multilevel degenerative disc changes 3. Bilateral lower lobe pulmonary infiltrates, greater on the right 4. Severe atherosclerotic changes
--- NOTE | 2023-08-01 17:41 | CT_ITS ---
PROCEDURE INFORMATION: Exam: CT Head Without Contrast Exam date and time: 08/01/2023 6:25 PM Age: 73 years old Clinical indication: Injury or trauma; Fall; Additional info: Trauma, critical injury suspected TECHNIQUE: Imaging protocol: Computed tomography of the head without contrast. Total images: 566 Radiation optimization: All CT scans at this facility use at least one of these dose optimization techniques: automated exposure control; mA and/or kV adjustment per patient size (includes targeted exams where dose is matched to clinical indication); or iterative reconstruction. COMPARISON: CT HEAD/BRAIN WO CON 01/25/2020 7:08 PM FINDINGS: Brain: Age-related atrophy and chronic white matter ischemic changes, with no evidence of an acute intracranial abnormality. No hemorrhage, mass effect or midline shift. Calcified meningioma again noted within the right frontal region. This is similar to the prior study. Cerebral ventricles: No ventriculomegaly. Paranasal sinuses: Air-fluid level noted within the right maxillary sinus. Mastoid air cells: Visualized mastoid air cells are well aerated. Nasal cavity: Right to left nasal septal deviation. Bones/joints: No acute fracture. Soft tissues: No acute changes IMPRESSION: 1. Age-related atrophy and chronic white matter ischemic changes, with no evidence of an acute intracranial abnormality. 2. No hemorrhage, mass effect or midline shift. 3. Right to left nasal septal deviation. 4. Air-fluid level noted within the right maxillary sinus.
--- NOTE | 2023-08-01 17:41 | CT_ITS ---
PROCEDURE INFORMATION: Exam: CTA Chest With Contrast Exam date and time: 08/01/2023 6:47 PM Age: 73 years old Clinical indication: Injury or trauma; Fall; Blunt trauma (contusions or hematomas); Additional info: Trauma, critical injury suspected TECHNIQUE: Imaging protocol: Computed tomographic angiography of the chest with contrast. Exam focused on the arteries. 3D rendering (Not supervised by radiologist): MIP and/or 3D reconstructed images were created by the technologist. Radiation optimization: All CT scans at this facility use at least one of these dose optimization techniques: automated exposure control; mA and/or kV adjustment per patient size (includes targeted exams where dose is matched to clinical indication); or iterative reconstruction. Contrast material: ISOVUE 370; Contrast volume: 100 ml; Contrast route: INTRAVENOUS (IV); COMPARISON: CT CHEST W CON 07/24/2023 2:28 PM FINDINGS: Pulmonary arteries: Normal. No pulmonary emboli. Aorta: Unremarkable. No aortic aneurysm. No aortic dissection. Lungs: Patchy airspace disease in primarily peripheral distribution in the right lung and to a lesser degree the left lower lobe. Moderate changes of emphysema throughout both lungs. Pleural spaces: Unremarkable. No pneumothorax. No pleural effusion. Heart: Unremarkable. No cardiomegaly. No pericardial effusion. Lymph nodes: Unremarkable. No enlarged lymph nodes. Bones/joints: Unremarkable. No acute fracture. Soft tissues: Unremarkable. IMPRESSION: No acute posttraumatic changes in the chest. Bilateral pulmonary infiltrates suggesting acute pneumonia, greater on the right. COMMENTS: The presence of pulmonary emphysema on CT is an independent risk factor for lung cancer. In the absence of a history or active diagnosis of lung cancer, it is recommended that this patient with emphysema be evaluated for enrollment in a low dose CT lung cancer screening program.
--- NOTE | 2023-08-01 17:41 | CT_ITS ---
PROCEDURE INFORMATION: Exam: CTA Neck With Contrast Exam date and time: 08/01/2023 6:43 PM Age: 73 years old Clinical indication: Injury or trauma; Fall; Blunt trauma; Head and neck; Additional info: Trauma, critical injury suspected TECHNIQUE: Imaging protocol: Computed tomographic angiography of the neck with contrast. Exam focused on the cervical segments of the vasculature. 3D rendering (Not supervised by radiologist): MIP and/or 3D reconstructed images were created by the technologist. Radiation optimization: All CT scans at this facility use at least one of these dose optimization techniques: automated exposure control; mA and/or kV adjustment per patient size (includes targeted exams where dose is matched to clinical indication); or iterative reconstruction. Contrast material: ISOVUE 370; Contrast volume: 100 ml; Contrast route: INTRAVENOUS (IV); COMPARISON: CT CERVICAL SPINE WO CON 08/01/2023 6:28 PM FINDINGS: Right common carotid artery: No stenosis. No dissection or occlusion. Right internal carotid artery: No stenosis of the extracranial segment. No dissection or occlusion. Right external carotid artery: No occlusion or stenosis of the origin. Left common carotid artery: No stenosis. No dissection or occlusion. Left internal carotid artery: No stenosis of the extracranial segment. No dissection or occlusion. Left external carotid artery: No occlusion or stenosis of the origin. Right vertebral artery: No stenosis. No dissection or occlusion. Left vertebral artery: No stenosis. No dissection or occlusion. Paranasal sinuses: Mild mucosal thickening right maxillary sinus. Soft tissues: Normal. No significant soft tissue swelling. Bones/joints: Moderate degenerative changes lower cervical spine. No acute bony abnormalities detected. Lungs: COPD with diffuse upper lobe emphysematous changes. IMPRESSION: No evidence of vascular injury, occlusion or dissection. REFERENCES: NASCET CRITERIA. The degree of stenosis in the cervical segment of the internal carotid artery is based on NASCET criteria. Normal is no stenosis. Mild is less than 50% stenosis. Moderate is 50-69% stenosis. Severe is 70% to 99% stenosis. Total occlusion is no detectable patent lumen.
--- NOTE | 2023-08-01 17:41 | CT_ITS ---
PROCEDURE INFORMATION: Exam: CT Thoracic Spine Without Contrast Exam date and time: 08/01/2023 6:31 PM Age: 73 years old Clinical indication: Injury or trauma; Fall; Additional info: Trauma, critical injury suspected TECHNIQUE: Imaging protocol: Computed tomography of the thoracic spine without contrast. Radiation optimization: All CT scans at this facility use at least one of these dose optimization techniques: automated exposure control; mA and/or kV adjustment per patient size (includes targeted exams where dose is matched to clinical indication); or iterative reconstruction. COMPARISON: CT CERVICAL SPINE WO CON 08/01/2023 6:28 PM FINDINGS: Bones/joints: Osseous alignment is normal. Mild uncovertebral spurring throughout thoracic spine. More severe degenerative disc changes noted in the lower cervical spine and upper lumbar spine. No vertebral body compression or acute fracture. Soft tissues: Unremarkable. Lungs: Patchy airspace disease in the bilateral lower lungs, greater on the right. IMPRESSION: 1. Degenerative changes of the spine as described. No acute abnormality 2. Bilateral lower lobe pneumonia, greater on the right.
[2023-08-01] MEDS: ACETAMINOPHEN 1,000MG/100ML VIAL 1000 MG IV (17:51)
[2023-08-01] MEDS: LACTATED RINGERS 1000ML 1,000 ML 999 ML IV (17:51)
[2023-08-01 18:08] LABS: INR 1.04 (0.9-1.1); Prothrombin Time 11.2 seconds (10.1-12.5)
[2023-08-01 18:09] LABS: Alanine Aminotransferase 48 U/L (12-78); Albumin Level 3.7 g/dl (3.5-5.0); Albumin/Globulin Ratio 1.2 (1.1-1.8); Alkaline Phosphatase 112 U/L (38-126); Anion Gap 8.9 mEq/L (5-15); Aspartate Amino Transferase 89 U/L (14-36); Bilirubin,Total 2.6 mg/dl (0.2-1.3); Blood Urea Nitrogen 27 mg/dl (7-17); Calcium 8.4 mg/dl (8.4-10.2); Carbon Dioxide 29 mmol/L (22.0-30.0); Chloride 98 mmol/L (98-107); Creatinine Clearance Estimated 38 mL/min (50-200); Estimated Glomerular Filt Rate 71 ml/min (>60); GFR (African American) 85 ML/MIN (>60); Globulin 3.1 g/dL (1.3-3.2); Glucose 115 mg/dl (74-100); Sodium 133 mmol/L (136-145); Total Protein,Serum 6.8 g/dl (6.3-8.2)
[2023-08-01 18:09] LABS: Magnesium 2.1 mg/dl (1.6-2.3)
[2023-08-01 18:10] LABS: Lactic Acid 2.1 mmol/L (0.7-2.1)
[2023-08-01 18:12] LABS: Potassium 2.9 mmoL/L (3.5-5.1)
--- NOTE | 2023-08-01 18:12 | PC.NURSE ---
CRITICAL K+ 2.9 RECEIVED FROM GUDELIA IN LAB. PT NAME AND R/V. DR BARAHONA NOTIFIED
[2023-08-01 18:13] LABS: Basophils % 0.3 % (0.1-2.0); Eosinophils % 0.1 % (0.1-12.0); Hematocrit 43.6 % (37.0-47.0); Hemoglobin 14.2 g/dL (12.2-16.2); Lymphocytes # 0.9 K/mm3 (0.7-4.5); Mean Corpuscular HGB Conc 32.7 g/dL (31.8-35.4); Mean Corpuscular Hemoglobin 29.9 pg (27.0-31.2); Mean Corpuscular Volume 91.5 fl (81-99); Mean Platelet Volume 10.4 fl (7.4-10.4); Monocytes # 0.4 K/mm3 (0.1-1.0); Monocytes % 3.1 % (1.7-9.3); Neutrophils # 10.4 K/mm3 (1.8-7.8); Neutrophils % 88.5 % (37.0-80.0); Platelet Count 108 K/mm3 (142-424); Red Blood Count 4.76 M/mm3 (4.20-5.40); Red Cell Distribution Width 15.8 % (11.5-17.5); White Blood Count 11.7 K/mm3 (4.8-10.8)
[2023-08-01 18:15] LABS: Lactate Dehydrogenase 1313 U/L (313-618)
[2023-08-01 18:16] LABS: MANUAL DIFFERENTIAL MANUAL DIFFERENTIAL (MANUAL DIFF)
--- NOTE | 2023-08-01 18:17 | PC.NURSE ---
pt going to ct
[2023-08-01 18:18] LABS: Creatine Kinase 3022 U/L (30-135)
[2023-08-01 18:18] LABS: VBG Base Excess -1.3 mmol/L (-2.4-2.3); VBG HCO3 24.2 mmol/L (23-30); VBG Oxygen Saturation 64.1 % (50-70); VBG PCO2 43.9 mmol/L (35-51); VBG PH 7.36 mmol/L (7.31-7.41); VBG PO2 33.9 mmol/L (28-40); VBG Total CO2 25.5 mmol/L (23-27)
[2023-08-01 18:21] LABS: Troponin I 0.16 ng/ml (0.00-0.034)
--- NOTE | 2023-08-01 18:27 | PC.NURSE ---
FAMILY UPDATED AT THIS TIME
[2023-08-01] MEDS: SODIUM CHLORIDE 0.9% 10ML SYR (RAD ONLY) 10 ML IV (18:51)
[2023-08-01] MEDS: IOPAMIDOL-370 (76%);100ML BOTTLE 200 ML IV (18:51)
[2023-08-01] MEDS: 0.9 % SODIUM CHLORIDE 50 ML VIAL 80 ML IV (18:51)
--- NOTE | 2023-08-01 18:57 | PC.NURSE ---
pt arrived back from ct
--- NOTE | 2023-08-01 18:59 | ECG_ITS ---
APPROVED REPORT Exam: Resting ECG HR:82 bpm ECG Measurements Heart Rate 82 AXES KS 168 P 90 QRSd 94 QRS -4 QT 283 T 180 QTc 321 Conclusion SINUS RHYTHM NONSPECIFIC ST & T-WAVE ABNORMALITY ABNORMAL ECG UNCONFIRMED REPORT Electronically signed by : Ariel Romero MD 08/02/2023 20:02:22
[2023-08-01 19:00] VITALS: BP 111/72; PULSE 52
--- NOTE | 2023-08-01 19:00 | PC.NURSE ---
DR BARAHONA AT BEDSIDE TO UPDATE FAMILY
[2023-08-01 19:02] LABS: Lymphocytes % 6 % (10-50); Monocytes % 10 % (2-9); Neutrophils % 75 % (42-76); Total Cells Counted 100
[2023-08-01 19:03] LABS: Platelet Estimate Slight Decrease; RBC Morphology Normal
[2023-08-01 19:04] LABS: Anisocytosis 2+
[2023-08-01] MEDS: POTASSIUM CHLORIDE 20MEQ TAB 40 MEQ PO ×2 (19:09→22:43)
[2023-08-01] MEDS: CEFTRIAXONE SODIUM 1 GM in 0.9 % SODIUM CHLORIDE 50 ML IV (19:10)
[2023-08-01 19:30] VITALS: BP 111/75; PULSE 54
--- NOTE | 2023-08-01 19:34 | PC.NURSE ---
Mid level spoke with Dr. Flowers and now on the phone with hospitalist re: admission
--- NOTE | 2023-08-01 19:38 | PC.NURSE ---
eligibility supervisor notified of need for bed
--- NOTE | 2023-08-01 19:40 | PC.NURSE ---
OBSERVATION ADMISSION TO 219 WITH DX OF PELVIC FX, PNA AND RHABDO TO SERVICE OF THE HOSPITALIST.
[2023-08-01] MEDS: AZITHROMYCIN 500 MG in 0.9 % SODIUM CHLORIDE 250 ML 250 MG IV (19:41)
--- NOTE | 2023-08-01 19:47 | P.HP_ITS ---
Attending attestation Patient was seen and evaluated at the bedside myself, agree with SILAS note. History of Present Illness *Admission Date: 08/01/23 *History of present illness: This is a 73-year-old female PMHx of COPD, HTN lung nodule, DJD, smoker who was brought in by EMS to the emergency department for evaluation of multiple falls and being found down for an undetermined period of time. Patient is tender to palpation over the bilateral hips although pelvic rock is stable and no significant orthopedic deformities are noted. Patient is awake and interactive but does not currently appear to be fully oriented. History obtained form granddaughter at bedside. Apparently patient lives by herself , and was last seen normal about 24hrs prior to admission. Per granddaughter, she started getting worried after patient did not answered phone. Therfore she called EMS. patient was found down on her back. low satting and rushed to the hospital. Patient appears to be normal sinus rhythm on the monitor at the bedside and has normal heart sounds and normal lung sounds. Patient has no meningismus signs or no evidence of focal neurologic deficit. Presented with numerous to count areas of ecchymosis small and large sores fresh and older areas of skin tears. including nose. Admitted for treatment and management. [facility] Disclaimer: The information contained in this section may have been updated after the patient was seen, as this information can be updated by other users. Medical History (Updated 08/02/23 @ 02:42 by Calvin Jordan APRN) Allergic rhinitis Anxiety Anxiety disorder Arthritis of left hip Bulging lumbar disc Chronic pain syndrome Colon polyps COPD (chronic obstructive pulmonary disease) COPD (chronic obstructive pulmonary disease) Diverticulosis of colon Dizziness Dyspnea Hemorrhoids Hypertension Left arm numbness Left arm pain Low back pain with left-sided sciatica Lumbar disc disease Lumbar foraminal stenosis PVC (premature ventricular contraction) Sciatic leg pain Tobacco use disorder Surgical History History of amputation History of breast biopsy History of hysterectomy Hx of partial thyroidectomy Family History Other Cancer Diabetes Hypertension Social History (Updated 08/01/23 @ 21:29 by Rosi Macedo RN) Smoking Status: Current every day smoker tobacco type: cigarettes packs per day: 1 second hand exposure: Yes alcohol intake: never substance use type: denies use current occupational status: disabled Travel in the last 8 weeks: None household members: none housing: apartment lives independently: Yes marital status: single education level: high school service: No current occupational exposures/hazards: No caffeine: Yes special dinora needs: No agree to transfusion: No do you feel safe at home: Yes victim of physical abuse: No victim of emotional abuse: No victim of sexual abuse: No would you like helpful sources: No Review of Systems Review of Systems Review of systems:: unable to obtain Meds Home Medications and Allergies Home Medications Medication Instructions Recorded Confirmed Type metoprolol succinate 50 mg 50 mg PO DAILY #90 tabs 12/29/22 08/01/23 Rx tablet,extended release 24 hr (Toprol XL) amlodipine 10 mg-benazepril 20 mg 1 cap PO DAILY #90 caps 01/18/23 08/01/23 Rx capsule (Lotrel) fluticasone fur. 200 mcg-umeclid 1 inh inhalation DAILY #60 ea 03/12/23 08/01/23 Rx 62.5 mcg-vilant 25 mcg inhalat.powder (Trelegy Ellipta) pregabalin 75 mg capsule 75 mg PO Q12H #60 caps 03/21/23 08/01/23 Rx alprazolam 0.5 mg tablet 0.5 mg PO BID PRN Anxiety #60 tabs 07/05/23 08/01/23 Rx albuterol sulfate 90 mcg/actuation 2 puff inhalation Q4-6H PRN soa 08/01/23 08/01/23 History aerosol inhaler (Ventolin HFA) amitriptyline 25 mg tablet 25 mg PO HS 08/01/23 08/01/23 History levalbuterol HCl 1.25 mg/3 mL 1.25 mg inhalation Q6 COPD 08/01/23 08/01/23 History solution for nebulization levothyroxine 25 mcg tablet 25 mcg PO DAILY 08/01/23 08/01/23 History montelukast 10 mg tablet 10 mg PO DAILY 08/01/23 08/01/23 History pantoprazole 40 mg tablet,delayed 40 mg PO DAILY 08/01/23 08/01/23 History release New Prescriptions to Start Prescriptions: Allergies Allergy/AdvReac Type Severity Reaction Status Date / Time Sulfa (Sulfonamide Allergy Unknown Verified 02/01/24 12:04 Antibiotics) [SULFA (SULFONAMIDE ANTIBIOTICS)] Exam Data for Last 24 hours Vital signs and Labs for Last 24 Hours: Temp Pulse Resp BP Pulse Ox O2 Del Method 98.4 F 64 18 113/81 88 L Room Air 08/01/23 17:22 08/01/23 17:22 08/01/23 17:22 08/01/23 17:22 08/01/23 17:22 08/01/23 17:22 Laboratory Results - last 24 hr 08/01/23 17:42: WBC 11.7 H, RBC 4.76, Hgb 14.2, Hct 43.6, MCV 91.5, MCH 29.9, MCHC 32.7, RDW 15.8, Plt Count 108 L, MPV 10.4, Neut % (Auto) 88.5 H, Lymph % (Auto) 8.0 L, Douglas % (Auto) 3.1, Eos % (Auto) 0.1, Baso % (Auto) 0.3, Neut # (Auto) 10.4 H, Lymph # (Auto) 0.9, Douglas # (Auto) 0.4, Eos # (Auto) 0.0, Baso # (Auto) 0.0, Total Counted 100, Neutrophils % (Manual) 75, Band Neutrophils % 9.0 H, Lymphocytes % (Manual) 6 L, Monocytes % (Manual) 10 H, Platelet Estimate Slight decrease, RBC Morphology Normal, Anisocytosis 2+, PT 11.2, INR 1.04, Sodium 133 L, Potassium 2.9 L*, Chloride 98, Carbon Dioxide 29, Anion Gap 8.9, BUN 27 H, Creatinine 0.80, Estimated Creat Clear 38, Estimated GFR 71, Est GFR ( Amer) 85, Glucose 115 H, Lactate 2.1, Calcium 8.4, Total Bilirubin 2.6 H, AST 89 H, ALT 48, Alkaline Phosphatase 112, Lactate Dehydrogenase 1313 H, Total Creatine Kinase 3022 H*, Total Protein 6.8, Albumin 3.7, Globulin 3.1, Albumin/Globulin Ratio 1.2 08/01/23 17:46: Magnesium 2.1, Troponin I 0.16 H 08/01/23 17:48: VBG pH 7.36, VBG pCO2 43.9, VBG pO2 33.9, VBG HCO3 24.2, VBG Total CO2 25.5, VBG O2 Saturation 64.1, VBG Base Excess -1.3 I & O for Last 24 hours: Intake & Output 07/29/23 07/30/23 07/31/23 08/01/23 23:59 23:59 23:59 23:59 Weight 47.174 kg Constitutional Constitutional: moderate distress, cachectic, chronically ill appearing and cooperative *Routine HEENT Exam Head: Present normocephalic; Absent atraumatic Eye: Present EOMI, PERRL and normal accommodation ENT: Present mucous membranes dry and septal deviation *Routine Neck Exam Neck: Present supple, full ROM and trachea midline *Routine Respiratory Exam Respiratory: Present CTA bilaterally, prolonged expiratory phase, respiratory distress and crackles *Routine Cardiovascular Exam Cardiovascular: Present RRR, Normal S1, Normal S2, murmur and tachycardia *Routine Abdominal Exam Abdominal: Present soft and normoactive bowel sounds; Absent organomegaly *Routine Rectal Exam Rectal:: deferred *Routine Genitalia Exam Genitalia:: deferred *Routine Extremities Exam Extremities: Present full ROM and pulses intact; Absent cyanosis, clubbing or edema *Routine Skin Exam Skin: Present erythema, lesions, wounds and ecchymosis; Absent intact *Routine Neurological Exam Neurological: Present alert, normal reflexes, moving all extremities and normal speech Routine Psychiatric Exam Psychiatric: Present unable to assess H&P: Result Imaging and Cardiology CT scan - abdomen: Status: image reviewed by me, Preliminary report and final report CT scan - chest: Status: image reviewed by me, Preliminary report and final report CT scan - pelvis: Status: image reviewed by me, Preliminary report and final report Assessment and Plan *Assessment and plan (1) Sepsis: Status: Acute Qualifiers: Sepsis type: sepsis due to unspecified organism Sepsis acute organ dysfunction status: with acute organ dysfunction Severe sepsis acute organ dysfunction type: acute respiratory failure Acute respiratory failure type: with hypoxia Severe sepsis shock status: without septic shock Qualified Code(s): A41.9 - Sepsis, unspecified organism; R65.20 - Severe sepsis without septic shock; J96.01 - Acute respiratory failure with hypoxia Category: Medical Code(s): A41.9 - Sepsis, unspecified organism (2) Pneumonia due to COVID-19 virus: Status: Acute Category: Medical Code(s): U07.1 - COVID-19; J12.82 - Pneumonia due to coronavirus disease 2019 (3) Pelvis fracture: Status: Acute Qualifiers: Encounter type: initial encounter Pelvic bone location: multiple parts Fracture type: closed Fracture alignment: without disruption of pelvic ring Qualified Code(s): S32.82XA - Multiple fractures of pelvis without disruption of pelvic ring, initial encounter for closed fracture Category: Medical Code(s): S32.9XXA - Fracture of unspecified parts of lumbosacral spine and pelvis, initial encounter for closed fracture (4) Elevated CK-MB level: Status: Acute Category: Medical Code(s): R74.8 - Abnormal levels of other serum enzymes (5) Hypokalemia: Status: Acute Category: Medical Code(s): E87.6 - Hypokalemia (6) Nasal septal deviation: Status: Acute Category: Medical Code(s): J34.2 - Deviated nasal septum (7) Multiple abrasions: Status: Acute Category: Medical Code(s): T07.XXXA - Unspecified multiple injuries, initial encounter (8) Degenerative joint disease (DJD) of lumbar spine: Status: Chronic Qualifiers: Spinal osteoarthritis complication: unspecified spinal osteoarthritis Qualified Code(s): M47.816 - Spondylosis without myelopathy or radiculopathy, lumbar region Category: Medical Code(s): M47.816 - Spondylosis without myelopathy or radiculopathy, lumbar region (9) COPD (chronic obstructive pulmonary disease): Status: Acute Qualifiers: COPD type: unspecified COPD Qualified Code(s): J44.9 - Chronic obstructive pulmonary disease, unspecified Category: Medical Code(s): J44.9 - Chronic obstructive pulmonary disease, unspecified (10) Lung nodule seen on imaging study: Status: Acute Category: Medical Code(s): R91.1 - Solitary pulmonary nodule Plan 73-year-old female PMHx of COPD, HTN lung nodule, DJD, smoker who was brought in by EMS to the emergency department for evaluation of multiple falls and being found down for an undetermined period of time. On arrival patient is hypotensive with a systolic in the 90s at the time of my exam, EKG shows normal sinus rhythm on the monitor at the time my exam, rectal temperature is 98.4 however her O2 sat is 88% on room air on arrival. Physical exam is remarkable for a cachectic appearing significantly deconditioned, appears to possibly have some degree of self-neglect as well. Patient has too numerous to count areas of ecchymosis small and large sores fresh and older areas of skin tears. Initial workup showed hypokalemia, white count 11.7 with a left shift and 9% bands, CK was elevated at 3022, creatinine was 0.8 with a GFR of 71, LDH of 1313 initial troponin of 0.1. head to toe CT was conducted. significant for pelvis fractures. Discussed the patient's fractures and management of same with orthopedics. Likely nonoperative however he will evaluate in the a.m. findings discussed with ED for admission. Patient and granddaughter notified and are agreeable with plan.: -Sepsis with acute hypoxic respiratory failure secondary to pneumonia and COVID-positive: Admit patient for medical services. Critical care consult. Remdesivir started. Pharmacy to dose On Zithromax and ceftriaxone Monitor for O2 saturation. Currently on 2 L nasal cannula Monitor for temperature or organ dysfunction. Blood cultures been Monitor CBC CMP -Pelvic fracture multiple sites status post fall. Unclear mechanism. CK elevated. unknown for how long patient was down Hyperkalemia nasal Septal deviation Would to be abrasion skin tear and generalized ecchymosis Orthopedic consult note likely medical manage. PT OT to eval and treat. Will need to clear weight bearing status Wound care Pain management Replace electrolytes per protocol. Watch for another electrolyte imbalance Echocardiogram ordered -Other chronic condition: DJD, hypertension, COPD, history of solitary nodule: Resume home medication nebulizer regimen Pulmonology on board -Current smoker On nicotine patch. SCD for DVT prophylaxis. On Protonix Full code
--- NOTE | 2023-08-01 19:56 | PC.NURSE ---
reportt called to Rosi JORDAN
[2023-08-01 20:00] VITALS: BP 141/80; BP 97/66; PULSE 74; PULSE 82; RESP 22; RESP 28; TEMP 36.4; TEMP 37; O2SAT 92; O2SAT 93
[2023-08-01 20:00] LABS: Procalcitonin 2.33 ng/mL (0.0-2.0)
--- NOTE | 2023-08-01 20:11 | PC.NURSE ---
floor called to check on when someone can come transport patient
[2023-08-01 20:37] VITALS: BP 102/72; PULSE 78; RESP 18; TEMP -7.7; TEMP 18
[2023-08-01 20:46] LABS: Fibrinogen 398 mg/dL (229.9-363.5)
[2023-08-01 21:25] LABS: Troponin I 0.19 ng/ml (0.00-0.034)
[2023-08-01 21:38] LABS: Reflex Lactic Add Lactic Reflex
[2023-08-01 21:50] VITALS: PULSE 80
[2023-08-01] MEDS: 0.9 % SODIUM CHLORIDE 1000ML 1,000 ML 50 ML IV (22:04)
[2023-08-01] MEDS: KCl 20mEq/100ml 100 ML 50 MEQ IV (22:05)
[2023-08-01] MEDS: PANTOPRAZOLE 40MG TABLET 40 MG PO (22:43)
[2023-08-01] MEDS: ENOXAPARIN 40MG/0.4ML SYRINGE 40 MG SQ (22:43)
[2023-08-01 22:46] LABS: Lactic Acid Follow Up (RFLX 1) 1.4 mmol/L (0.7-2.1)
[2023-08-01] MEDS: MORPHINE 4MG/ML SYRINGE 4 MG IV (22:50)
[2023-08-01 23:11] LABS: Influenza A, PCR Not Detected (NotDetected); Influenza B, PCR Not Detected (NotDetected)
[2023-08-01 23:11] LABS: Microscopic, Urine URINE MICROSCOPIC (MICROSCOPIC)
[2023-08-01 23:18] LABS: Appearance,Urine CLEAR (Clear); Bilirubin,Urine Negative (Negative); Blood, Urine 3+ (Negative); Color,Urine YELLOW (Yellow); Glucose,Urine (UA) Negative (Negative); Ketones,Urine TRACE (Negative); Leukocyte Esterase,Urine Negative (Negative); Nitrate,Urine Negative (Negative); PH,Urine 6.5 (5.0-8.5); Protein,Urine Negative (Negative); Specific Gravity, Urine <= 1.005 (1.005-1.030); Urobilinogen,Urine 0.2 EU/dl (0.2)
[2023-08-01 23:32] LABS: Coronavirus 19, PCR Detected (NotDetected)
[2023-08-02] VITALS (9 sets, daily range): BP systolic 100–127; BP diastolic 59–80; PULSE 60–84; RESP 16–23; TEMP 36.6–37.7; O2SAT 91–100; BMI 15.0
[2023-08-02 00:04] LABS: RBC,Urine Occasional #/hpf (0-3)
[2023-08-02 00:48] LABS: Troponin I 0.16 ng/ml (0.00-0.034)
[2023-08-02 07:26] LABS: Basophils % 0.2 % (0.1-2.0); Hematocrit 40.5 % (37.0-47.0); Hemoglobin 13.4 g/dL (12.2-16.2); Lymphocytes # 0.8 K/mm3 (0.7-4.5); Lymphocytes % 9.3 % (10-50); Mean Corpuscular Hemoglobin 30.7 pg (27.0-31.2); Mean Platelet Volume 8.8 fl (7.4-10.4); Monocytes # 0.3 K/mm3 (0.1-1.0); Neutrophils # 7.9 K/mm3 (1.8-7.8); Neutrophils % 87.5 % (37.0-80.0); Platelet Count 142 K/mm3 (142-424); Red Blood Count 4.36 M/mm3 (4.20-5.40); Red Cell Distribution Width 15.9 % (11.5-17.5); White Blood Count 9.1 K/mm3 (4.8-10.8)
[2023-08-02 07:35] LABS: Chloride 108 mmol/L (98-107); MANUAL DIFFERENTIAL MANUAL DIFFERENTIAL (MANUAL DIFF); Sodium 138 mmol/L (136-145)
[2023-08-02 07:38] LABS: Alanine Aminotransferase 35 U/L (12-78); Albumin Level 3.1 g/dl (3.5-5.0); Albumin/Globulin Ratio 1.1 (1.1-1.8); Alkaline Phosphatase 109 U/L (38-126); Anion Gap 11.4 mEq/L (5-15); Aspartate Amino Transferase 50 U/L (14-36); Bilirubin,Total 1.1 mg/dl (0.2-1.3); Blood Urea Nitrogen 18 mg/dl (7-17); Calcium 7.9 mg/dl (8.4-10.2); Carbon Dioxide 23 mmol/L (22.0-30.0); Creatinine Clearance Estimated 38 mL/min (50-200); Estimated Glomerular Filt Rate 71 ml/min (>60); GFR (African American) 85 ML/MIN (>60); Globulin 2.9 g/dL (1.3-3.2); Glucose 86 mg/dl (74-100); Magnesium 2.1 mg/dl (1.6-2.3); Potassium 4.4 mmoL/L (3.5-5.1)
[2023-08-02] MEDS: DOCUSATE SODIUM 100 MG CAPSULE PO (08:50)
[2023-08-02] MEDS: REMDESIVIR 200 MG in 0.9 % SODIUM CHLORIDE 250 ML 250 MG IV (08:50)
[2023-08-02 08:56] LABS: Lymphocytes % 10 % (10-50); Monocytes % 3 % (2-9); Neutrophils % 87 % (42-76); RBC Morphology Normal; Total Cells Counted 100
[2023-08-02 08:57] LABS: Platelet Estimate Normal
[2023-08-02] MEDS: NICOTINE 21MG/24HR PATCH 21 MG TD (09:03)
[2023-08-02] MEDS: ACETAMINOPHEN 325MG TAB 650 MG PO ×2 (09:03→21:17)
--- NOTE | 2023-08-02 09:38 | SW/DCPLANNER ---
Addendum entered by [facility] 08/03/23 13:20: [facility] stated that they are able to accept this patient once medically stable including over the weekend. I have updated MD. Addendum entered by [facility] 08/02/23 14:24: Sharri clarke/ [facility] stated that she is able to accept this patient once ready for discharge. Patient will have qualifying stay on Sunday08/04/23. I am waiting to hear back from Sharri regarding weekend admission. Addendum entered by [facility] 08/02/23 12:39: I have left a w/ [facility]. I also spoke w/ Emma at [facility] (phone [phone]) and faxed patient information to their facility (fax [phone]). Patient/family are agreeable to these facilities. Addendum entered by [facility] 08/02/23 10:44: Patient information has been faxed to [facility] at [phone]. Original Note: I spoke w/ patient and her granddaughter regarding plans once medically stable for discharge. PT/OT evaluated patient and recommended SNF level of care. Patient and family are agreeable to placement and prefer to be closer to the granddaughter in [facility]: [facility] facility. I have called and left a for Admission Dept at [facility] to call me back regarding referral. Discharge date is unknown at this time. I will continue to follow up w/ facility.
[2023-08-02] MEDS: MORPHINE 4MG/ML SYRINGE 4 MG IV ×3 (09:44→22:22)
--- NOTE | 2023-08-02 09:48 | HMH.PHAINT1 ---
Pharmacy Intervention Comments: Confirmed medication history using external fill history and spoke with patient and her granddaughter at bedside.
--- NOTE | 2023-08-02 09:59 | EXP.PULM.CON ---
History of Present Illness History of present illness: Ms. Tate is a 73-year-old female current smoker greater than 30 PPD carries a diagnosis of COPD on Trelegy 100 inhaler at home, not using oxygen supplementation at baseline had 3 vaccinations for COVID-19 pneumonia had a sick contact, neighbor tested positive for COVID-19 pneumonia had noted worsening respiratory's for the last 1 week followed by multiple falls and presented to the ER. [facility] Disclaimer: The information contained in this section may have been updated after the patient was seen, as this information can be updated by other users. Medical History (Updated 08/02/23 @ 12:25 by Shasha Leone MD) Acute respiratory failure with hypoxia Allergic rhinitis Anxiety Anxiety disorder Arthritis of left hip Bulging lumbar disc Chronic pain syndrome Colon polyps COPD (chronic obstructive pulmonary disease) COPD (chronic obstructive pulmonary disease) Diverticulosis of colon Dizziness Dyspnea Hemorrhoids Hypertension Left arm numbness Left arm pain Low back pain with left-sided sciatica Lumbar disc disease Lumbar foraminal stenosis PVC (premature ventricular contraction) Sciatic leg pain Tobacco use disorder Surgical History History of amputation History of breast biopsy History of hysterectomy Hx of partial thyroidectomy Family History Other Cancer Diabetes Hypertension Social History (Updated 08/01/23 @ 21:29 by Rosi Macedo RN) Smoking Status: Current every day smoker tobacco type: cigarettes packs per day: 1 second hand exposure: Yes alcohol intake: never substance use type: denies use current occupational status: disabled Travel in the last 8 weeks: None household members: none housing: apartment lives independently: Yes marital status: single education level: high school service: No current occupational exposures/hazards: No caffeine: Yes special dinora needs: No agree to transfusion: No do you feel safe at home: Yes victim of physical abuse: No victim of emotional abuse: No victim of sexual abuse: No would you like helpful sources: No Review of Systems Constitutional Constitutional: Reports anorexia, Reports body ache(s), Reports fatigue, Reports frequent falls, Reports poor appetite, Reports lethargy and Reports weakness Eyes Eyes: Denies eye discharge, Denies dry eyes, Denies irritation and Denies itchy eyes ENT Ears, Nose, Mouth, and Throat: Denies epistaxis, Denies facial pain, Denies lip swelling and Denies throat swelling *Cardiovascular Cardiovascular: Reports dyspnea and Reports dyspnea on exertion *Respiratory Respiratory: Reports chest congestion, Reports cough, Reports dyspnea, Reports dyspnea on exertion, Reports excessive phlegm production and Reports wheezing *Gastrointestinal Gastrointestinal: Denies abdominal pain, Denies belching and Denies cramping *Musculoskeletal Musculoskeletal: Reports back pain, Reports muscle weakness, Reports myalgias and Reports other (No small joint swelling or Pain) *Neurologic Neurologic: Reports frequent falls and Reports weakness Psychiatric Psychiatric: Denies homicidal ideation and Denies suicidal ideation Endocrine Endocrine: Reports fatigue and Denies heat intolerance Hematologic/Lymphatic Hematologic/Lymphatic: Denies easy bleeding and Denies lymphadenopathy Allergic/Immunologic Allergic/Immunologic: Denies itchy eyes, Denies lip swelling, Denies throat swelling and Reports wheezing Pulmonology Exam Inpatient Vital signs and Labs for Last 24 Hours: Temp Pulse Resp BP Pulse Ox O2 Del Method O2 Flow Rate 98.3 F 84 23 112/60 93 L Nasal Cannula 4 08/02/23 08:00 08/02/23 08:00 08/02/23 08:00 08/02/23 08:00 08/02/23 08:00 08/02/23 09:00 08/02/23 09:00 Laboratory Results - last 24 hr 08/01/23 15:39: Procalcitonin 2.33 H 08/01/23 17:42: WBC 11.7 H, RBC 4.76, Hgb 14.2, Hct 43.6, MCV 91.5, MCH 29.9, MCHC 32.7, RDW 15.8, Plt Count 108 L, MPV 10.4, Neut % (Auto) 88.5 H, Lymph % (Auto) 8.0 L, [place] % (Auto) 3.1, Eos % (Auto) 0.1, Baso % (Auto) 0.3, Neut # (Auto) 10.4 H, Lymph # (Auto) 0.9, [place] # (Auto) 0.4, Eos # (Auto) 0.0, Baso # (Auto) 0.0, Total Counted 100, Neutrophils % (Manual) 75, Band Neutrophils % 9.0 H, Lymphocytes % (Manual) 6 L, Monocytes % (Manual) 10 H, Platelet Estimate Slight decrease, RBC Morphology Normal, Anisocytosis 2+, PT 11.2, INR 1.04, APTT 33.0 H, Fibrinogen 398 H, Sodium 133 L, Potassium 2.9 L*, Chloride 98, Carbon Dioxide 29, Anion Gap 8.9, BUN 27 H, Creatinine 0.80, Estimated Creat Clear 38, Estimated GFR 71, Est GFR ( Amer) 85, Glucose 115 H, Lactate 2.1, Calcium 8.4, Total Bilirubin 2.6 H, AST 89 H, ALT 48, Alkaline Phosphatase 112, Lactate Dehydrogenase 1313 H, Total Creatine Kinase 3022 H*, Total Protein 6.8, Albumin 3.7, Globulin 3.1, Albumin/Globulin Ratio 1.2 08/01/23 17:46: Magnesium 2.1, Troponin I 0.16 H 08/01/23 17:48: VBG pH 7.36, VBG pCO2 43.9, VBG pO2 33.9, VBG HCO3 24.2, VBG Total CO2 25.5, VBG O2 Saturation 64.1, VBG Base Excess -1.3 08/01/23 20:53: Troponin I 0.19 H 08/01/23 22:23: Lactate 1.4 08/01/23 22:58: Urine Color Yellow, Urine Appearance Clear, Urine pH 6.5, Ur Specific [place] <= 1.005, Urine Protein Negative, Urine Glucose (UA) Negative, Urine Ketones Trace, Urine Blood 3+, Urine Nitrate Negative, Urine Bilirubin Negative, Urine Urobilinogen 0.2, Ur Leukocyte Esterase Negative, Urine RBC Occasional, Urine WBC None, Ur Squamous Epith Cells None, Urine Bacteria None 08/01/23 23:05: SARS-CoV-2 (PCR) Detected A, Influenza A Untype (PCR) Not detected, Influenza Type B (PCR) Not detected 08/02/23 00:20: Troponin I 0.16 H 08/02/23 06:43: WBC 9.1, RBC 4.36, Hgb 13.4, Hct 40.5, MCV 93.0, MCH 30.7, MCHC 33.0, RDW 15.9, Plt Count 142 D, MPV 8.8, Neut % (Auto) 87.5 H, Lymph % (Auto) 9.3 L, [place] % (Auto) 3.0, Eos % (Auto) 0.0 L, Baso % (Auto) 0.2, Neut # (Auto) 7.9 H, Lymph # (Auto) 0.8, [place] # (Auto) 0.3, Eos # (Auto) 0.0, Baso # (Auto) 0.0, Total Counted 100, Neutrophils % (Manual) 87 H, Lymphocytes % (Manual) 10, Monocytes % (Manual) 3, Platelet Estimate Normal, RBC Morphology Normal, Sodium 138, Potassium 4.4 D, Chloride 108 H, Carbon Dioxide 23, Anion Gap 11.4, BUN 18 H D, Creatinine 0.80, Estimated Creat Clear 38, Estimated GFR 71, Est GFR ( Amer) 85, Glucose 86 D, Calcium 7.9 L, Magnesium 2.1, Total Bilirubin 1.1, AST 50 H D, ALT 35 D, Alkaline Phosphatase 109, Total Protein 6.0 L, Albumin 3.1 L D, Globulin 2.9, Albumin/Globulin Ratio 1.1 I & O for Labs for Last 24 Hours: Intake & Output 07/30/23 07/31/23 08/01/23 08/02/23 23:59 23:59 23:59 23:59 Intake Total 826 / 826 Output Total 1200 / 1200 100 / 100 Balance -1200 / -1200 726 / 726 Weight 104 lb 82 lb Constitutional: Present severe distress Head: Present normocephalic and atraumatic ENT: Present normal exam, normal oropharynx and mucous membranes moist Neck: Present normal inspection and full ROM Respiratory: Present respiratory distress, wheezes, crackles and diminished air movement; Absent able to speak in complete sentences Cardiac: Present S1/S2, Tachycardia and radial pulses present GI: Present soft and distention; Absent tenderness or guarding Rectal (female): Present deferred (female): Present deferred Skin: Present intact; Absent cyanosis or jaundice Neuro: Present alert, awake and oriented x 3 Extremities: Present normal inspection; Absent clubbing or cyanosis Psychiatric: Present normal affect and cooperative Meds Home Medications and Allergies Home Medications Medication Instructions Recorded Confirmed Type metoprolol succinate 50 mg 50 mg PO DAILY #90 tabs 12/29/22 08/01/23 Rx tablet,extended release 24 hr (Toprol XL) amlodipine 10 mg-benazepril 20 mg 1 cap PO DAILY #90 caps 01/18/23 08/01/23 Rx capsule (Lotrel) fluticasone fur. 200 mcg-umeclid 1 inh inhalation DAILY #60 ea 03/12/23 08/01/23 Rx 62.5 mcg-vilant 25 mcg inhalat.powder (Trelegy Ellipta) pregabalin 75 mg capsule 75 mg PO Q12H #60 caps 03/21/23 08/01/23 Rx alprazolam 0.5 mg tablet 0.5 mg PO BID PRN Anxiety #60 tabs 07/05/23 08/01/23 Rx albuterol sulfate 90 mcg/actuation 2 puff inhalation Q4-6H PRN 08/01/23 08/01/23 History aerosol inhaler (Ventolin HFA) Shortness Of Breath Or Wheezing amitriptyline 25 mg tablet 25 mg PO HS 08/01/23 08/01/23 History levalbuterol HCl 1.25 mg/3 mL 1.25 mg inhalation Q6 COPD 08/01/23 08/01/23 History solution for nebulization levothyroxine 25 mcg tablet 25 mcg PO DAILY 08/01/23 08/01/23 History montelukast 10 mg tablet 10 mg PO DAILY 08/01/23 08/01/23 History pantoprazole 40 mg tablet,delayed 40 mg PO DAILY 08/01/23 08/01/23 History release acetaminophen 500 mg tablet 500 - 1,000 mg PO DAILYP PRN Pain 08/02/23 08/02/23 History cetirizine 10 mg tablet 10 mg PO DAILY 08/02/23 08/02/23 History guaifenesin 600 mg tablet, 600 mg PO DAILY 08/02/23 08/02/23 History extended release 12 hr (Mucinex) ibuprofen 200 mg tablet 200 - 400 mg PO DAILYP PRN Pain 08/02/23 08/02/23 History sodium chloride-aloe vera nasal 1 spray intranasal NEEDED PRN 08/02/23 08/02/23 History spray ([place] Saline Gel nasal spray) Drying And Crusting Inside The Nose New Prescriptions to Start Prescriptions: Allergies Allergy/AdvReac Type Severity Reaction Status Date / Time Sulfa (Sulfonamide Allergy Unknown Verified 07/05/23 12:04 Antibiotics) [SULFA (SULFONAMIDE ANTIBIOTICS)] Results Laboratory Findings 08/02/23 06:43 08/02/23 06:43 PT/INR, D-dimer PT 11.2 seconds (10.1-12.5) 08/01/23 17:42 INR 1.04 (0.9-1.1) 08/01/23 17:42 Abnormal lab findings: Abnormal Labs 08/01/23 08/01/23 08/01/23 15:39 17:42 17:46 WBC 11.7 H Plt Count 108 L Neut % (Auto) 88.5 H Lymph % (Auto) 8.0 L Eos % (Auto) Neut # (Auto) 10.4 H Neutrophils % (Manual) Band Neutrophils % 9.0 H Lymphocytes % (Manual) 6 L Monocytes % (Manual) 10 H APTT 33.0 H Fibrinogen 398 H Sodium 133 L Potassium 2.9 L* Chloride BUN 27 H Glucose 115 H Calcium Total Bilirubin 2.6 H AST 89 H Lactate Dehydrogenase 1313 H Total Creatine Kinase 3022 H* Troponin I 0.16 H Total Protein Albumin Procalcitonin 2.33 H SARS-CoV-2 (PCR) 08/01/23 08/01/23 08/02/23 20:53 23:05 00:20 WBC Plt Count Neut % (Auto) Lymph % (Auto) Eos % (Auto) Neut # (Auto) Neutrophils % (Manual) Band Neutrophils % Lymphocytes % (Manual) Monocytes % (Manual) APTT Fibrinogen Sodium Potassium Chloride BUN Glucose Calcium Total Bilirubin AST Lactate Dehydrogenase Total Creatine Kinase Troponin I 0.19 H 0.16 H Total Protein Albumin Procalcitonin SARS-CoV-2 (PCR) Detected A 08/02/23 06:43 WBC Plt Count Neut % (Auto) 87.5 H Lymph % (Auto) 9.3 L Eos % (Auto) 0.0 L Neut # (Auto) 7.9 H Neutrophils % (Manual) 87 H Band Neutrophils % Lymphocytes % (Manual) Monocytes % (Manual) APTT Fibrinogen Sodium Potassium Chloride 108 H BUN 18 H D Glucose Calcium 7.9 L Total Bilirubin AST 50 H D Lactate Dehydrogenase Total Creatine Kinase Troponin I Total Protein 6.0 L Albumin 3.1 L D Procalcitonin SARS-CoV-2 (PCR) Assessment and Plan *Assessment and plan (1) Pneumonia due to COVID-19 virus: Status: Acute Category: Medical Code(s): U07.1 - COVID-19; J12.82 - Pneumonia due to coronavirus disease 2019 (2) Acute respiratory failure with hypoxia: Status: Acute Category: Medical Code(s): J96.01 - Acute respiratory failure with hypoxia Plan Ms. Tate is a 73-year-old female current smoker greater than 30 PPD carries a diagnosis of COPD on Trelegy 100 inhaler at home, not using oxygen supplementation at baseline had 3 vaccinations for COVID-19 pneumonia had a sick contact, neighbor tested positive for COVID-19 pneumonia had noted worsening respiratory's for the last 1 week followed by multiple falls and presented to the ER. CTA upon admission no evidence of pulmonary embolism but bilateral subpleural patchy airspace disease/ILD. Emphysematous changes also noted. The noted subpleural changes are new from his CT chest from 07/24/2023 COVID-19 PCR resulted positive. Patient was initiated on ceftriaxone azithromycin along with remdesivir upon admission. On examination patient appeared to be in severe respiratory distress. Bilateral diffuse wheezing noted. On 4 L nasal cannula oxygen supplementation with saturations at 93%. Plan: Continue remdesivir x 5 days Initiate Trelegy 100 inhaler along with albuterol inhaler/DuoNebs every 6 hours on as-needed basis Continue oxygen supplementation to maintain O2 saturation below 90% and above Continue ceftriaxone azithromycin x 5 days pending culture results Prednisone 40 mg daily oral x 5 days # Thank you for involving pulmonary in this patient care. Will continue to follow.
[2023-08-02] MEDS: LEVOTHYROXINE 25MCG (0.025MG) TAB 25 MCG PO (10:45)
[2023-08-02] MEDS: guaiFENesin 600 MG TAB.ER.12H PO ×2 (10:45→21:17)
[2023-08-02] MEDS: LISINOPRIL 20MG TABLET 20 MG PO (10:46)
[2023-08-02] MEDS: AMLODIPINE 10MG TABLET 10 MG PO (10:46)
[2023-08-02] MEDS: METOPROLOL SUCCINATE XL 50MG TABLET 50 MG PO (10:46)
[2023-08-02] MEDS: LORATADINE 10MG TABLET 10 MG PO (10:46)
--- NOTE | 2023-08-02 10:59 | HMH.OTEV ---
OT Inpatient Evaluation Rehab OT IP Evaluation Start: 08/01/23 22:04 Freq: ONCE Status: Active Protocol: Document 08/02/23 10:37 [facility] (Rec: 08/02/23 10:58 [facility] [id number]) Rehab OT IP Assessment Subjective History Pt oriented x 3 on arrival. Pt agreeable to engage in therapy evaluation. Pt admitted on 08/01/23 due to PNA and pelvic fx. History and Physical Report: This is a 73-year-old female PMHx of COPD, HTN lung nodule, DJD, smoker who was brought in by EMS to the emergency department for evaluation of multiple falls and being found down for an undetermined period of time. Patient is tender to palpation over the bilateral hips although pelvic rock is stable and no significant orthopedic deformities are noted. Patient is awake and interactive but does not currently appear to be fully oriented. History obtained form granddaughter at bedside. Apparently patient lives by herself , and was last seen normal about 24hrs prior to admission. Per granddaughter, she started getting worried after patient did not answered phone. Therfore she called EMS. patient was found down on her back. low satting and rushed to the hospital. Patient appears to be normal sinus rhythm on the monitor at the bedside and has normal heart sounds and normal lung sounds. Patient has no meningismus signs or no evidence of focal neurologic deficit. Presented with numerous to count areas of ecchymosis small and large sores fresh and older areas of skin tears. including nose. Admitted for treatment and management. Subjective I will need some help. Prior to being in the hospital , pt lived alone in an apartment. Pt claims she is normally independent with all ADLs and IADLs. Pt's family assist with transportation becuase she no longer drives. She does not require any type of AE during functional transfers. Objective Patient Orientation Person,Place,Birthday Right Upper Extremity Gross ROM Min Limitation <25% Left Upper Extremity Gross ROM WFL Shoulder ROM Limitations Muscle Weakness Elbow ROM Limitations Muscle Weakness Wrist Limitations of Range of Motion Muscle Weakness Transfer Training Sit/Stand Transfer Assist Level Moderate x 2 (50% assist) Rehab OT IP prob,goals,plan Problems Date of Evaluation: 08/02/23 OT IP Problems Bed Mobility,Transfers,Balance ,Self care,Safety Rehab Potential Rehab Potential Good Equipment Needs Assistive Devices Rolling / Wheeled Walker Plan OT intervention Plan Bed Mobility,Transfers,Balance ,Self care,Safety,Therapeutic Exercise OT Plan Frequency Daily Duration LOS Discharge Goals Bed Mobility Ability Assistance x1 Sit to Stand Chair Transfer Ability Minimal x 1 (25% assist) Chair Transfer Ability Moderate x 1 (50% assist) Chair Transfer Technique Stand Step Pivot Chair Transfer Assistive Devices Rolling Walker Feeding Ability Assist with Tray Set Up Lower Body Dressing Ability Moderate Assistance Upper Body Dressing Ability Minimal Assistance Bathing Ability Moderate Assistance Performing Toilet Hygiene Ability Moderate Assistance Overall Commode/Toilet Transfer Ability Moderate Assistance Commode/Toilet Transfer Technique Sit to/from Ambulatory Commode/Toilet Transfer Assistive Grab Bars Devices Oral Care Assist Standby Assistance Decrease in Endurance Yes Discharge Plan OT Discharge Plan Pt will continue to be seen for OT services while at [facility]. Pt would benefit most from short term rehab at [facility] following discharge. Continued skilled therapy is important in order for patient to improve strength, safety, endurance, ADL independence, and functional transfers to reach PLOF. Eval Complexity Eval Charge Codes 87341 - Moderate Complexity PHYSICIAN CERTIFICATION: I certify the specified therapy services for Susana Tate are required, authorized, and reviewed every 30 days.
--- NOTE | 2023-08-02 11:32 | HMH.PTEV ---
Physical Therapy Evaluation Rehab PT IP Evaluation Start: 08/01/23 22:04 Freq: ONCE Status: Active Protocol: Document 08/02/23 11:22 [facility] (Rec: 08/02/23 11:32 [facility] [id number]) Subjective/History History History 73 yowf adm to [facility] after found down at home for undetermined amount of time with PNA, Sepsis, and pelvic fxs. CT of pelvis shows R SUP/INF pubic rami fxs, R sacral ala fx, R S2 fx, and L4 wedge compression fx of unknown age. She has PMH of COPD, HTN, DJD with chronic sciatic pain, lung nodule, R hand amputation , and found to be COVID+. She reports she lives aone, no steps to enter her apt ( elevator), and she is generally independent with all mobility without an AD. Subjective Subjective Pt reports R LE pain this am, but agrees to OOB mobility assessment. Multiple wounds and skin tears throughout her body noted with various states of healing. New diagnosis of cancer in past 12 No months? Rehab PT IP Eval Objective Appearance Patient Behavior Appropriate Patient Orientation Person,Place,Time Difficulty following instructions none Speech Pattern Clear Ambulation Patient Able to Ambulate Yes Ambulation Observation IP General Gait Pattern Observation Shuffling Step,Decrease Weight Bear (R),Decrease Stride Lngth (R),Decrease Stride Lngth (L) Ambulation Distance (feet) 3 Ambulation Ability Moderate x 2 (50% assist) Balance Ability to Arise Able, uses arms to help Sitting Balance Steady, safe Standing Balance Unsteady Dynamic Sitting Balance Ability Fair Dynamic Standing Balance Ability Poor Transfers Bed Transfer Ability Moderate x 2 (50% assist) Chair Transfer Ability Moderate x 2 (50% assist) Sit to Stand Bed Transfer Ability Moderate x 2 (50% assist) Sit to Stand Chair Transfer Ability Moderate x 2 (50% assist) Rehab PT IP prob,goals,plan Problems Date of Evaluation: 08/02/23 PT IP Problems Bed Mobility,Transfers,Gait Rehab Potential Rehab Potential Good Plan PT Intervention Plan Bed Mobility,Transfers,Gait, Self care,Therapeutic Exercise PT Plan Frequency Daily Duration LOS Discharge Goals Bed Transfer Ability Moderate x 1 (50% assist) Sit to Stand Chair Transfer Ability Moderate x 1 (50% assist) Ambulation Assistive Device None Ambulation Distance (feet) 10 Discharge Plan PT Discharge Plan Pt is currently most appropriate for rehab placement once medically stable for d/c. Skilled intervention is needed to prevent further debility, falls, wounds, or injury. Eval Complexity Eval Charge Codes 38259 - High Complexity PHYSICIAN CERTIFICATION: I certify the specified therapy services for Susana Tate are required, authorized, and reviewed every 30 days.
--- NOTE | 2023-08-02 12:29 | EXP.ORTH.CON ---
History of Present Illness *Admission Date: 08/01/23 *History of present illness: This is a 73-year-old female PMHx of COPD, HTN lung nodule, DJD, smoker who was brought in by EMS to the emergency department for evaluation of multiple falls and being found down for an undetermined period of time. Patient is tender to palpation over the bilateral hips although pelvic rock is stable and no significant orthopedic deformities are noted. Patient is awake and interactive but does not currently appear to be fully oriented. History obtained form granddaughter at bedside. Apparently patient lives by herself , and was last seen normal about 24hrs prior to admission. Per granddaughter, she started getting worried after patient did not answered phone. Therfore she called EMS. patient was found down on her back. low satting and rushed to the hospital. Patient appears to be normal sinus rhythm on the monitor at the bedside and has normal heart sounds and normal lung sounds. Patient has no meningismus signs or no evidence of focal neurologic deficit. Presented with numerous to count areas of ecchymosis small and large sores fresh and older areas of skin tears. including nose. Admitted for treatment and management. [facility] Disclaimer: The information contained in this section may have been updated after the patient was seen, as this information can be updated by other users. Medical History (Updated 08/02/23 @ 12:48 by Hardik Flowers DO) Acute respiratory failure with hypoxia Allergic rhinitis Anxiety Anxiety disorder Arthritis of left hip Bulging lumbar disc Chronic pain syndrome Colon polyps COPD (chronic obstructive pulmonary disease) COPD (chronic obstructive pulmonary disease) Diverticulosis of colon Dizziness Dyspnea Hemorrhoids Hypertension Left arm numbness Left arm pain Low back pain with left-sided sciatica Lumbar disc disease Lumbar foraminal stenosis PVC (premature ventricular contraction) Sciatic leg pain Tobacco use disorder Surgical History History of amputation History of breast biopsy History of hysterectomy Hx of partial thyroidectomy Family History Other Cancer Diabetes Hypertension Social History (Updated 08/01/23 @ 21:29 by Rosi Macedo RN) Smoking Status: Current every day smoker tobacco type: cigarettes packs per day: 1 second hand exposure: Yes alcohol intake: never substance use type: denies use current occupational status: disabled Travel in the last 8 weeks: None household members: none housing: apartment lives independently: Yes marital status: single education level: high school service: No current occupational exposures/hazards: No caffeine: Yes special dinora needs: No agree to transfusion: No do you feel safe at home: Yes victim of physical abuse: No victim of emotional abuse: No victim of sexual abuse: No would you like helpful sources: No Meds Home Medications and Allergies Home Medications Medication Instructions Recorded Confirmed Type metoprolol succinate 50 mg 50 mg PO DAILY #90 tabs 12/29/22 08/01/23 Rx tablet,extended release 24 hr (Toprol XL) amlodipine 10 mg-benazepril 20 mg 1 cap PO DAILY #90 caps 01/18/23 08/01/23 Rx capsule (Lotrel) fluticasone fur. 200 mcg-umeclid 1 inh inhalation DAILY #60 ea 03/12/23 08/01/23 Rx 62.5 mcg-vilant 25 mcg inhalat.powder (Trelegy Ellipta) pregabalin 75 mg capsule 75 mg PO Q12H #60 caps 03/21/23 08/01/23 Rx alprazolam 0.5 mg tablet 0.5 mg PO BID PRN Anxiety #60 tabs 07/05/23 08/01/23 Rx albuterol sulfate 90 mcg/actuation 2 puff inhalation Q4-6H PRN 08/01/23 08/01/23 History aerosol inhaler (Ventolin HFA) Shortness Of Breath Or Wheezing amitriptyline 25 mg tablet 25 mg PO HS 08/01/23 08/01/23 History levalbuterol HCl 1.25 mg/3 mL 1.25 mg inhalation Q6 COPD 08/01/23 08/01/23 History solution for nebulization levothyroxine 25 mcg tablet 25 mcg PO DAILY 08/01/23 08/01/23 History montelukast 10 mg tablet 10 mg PO DAILY 08/01/23 08/01/23 History pantoprazole 40 mg tablet,delayed 40 mg PO DAILY 08/01/23 08/01/23 History release acetaminophen 500 mg tablet 500 - 1,000 mg PO DAILYP PRN Pain 08/02/23 08/02/23 History cetirizine 10 mg tablet 10 mg PO DAILY 08/02/23 08/02/23 History guaifenesin 600 mg tablet, 600 mg PO DAILY 08/02/23 08/02/23 History extended release 12 hr (Mucinex) ibuprofen 200 mg tablet 200 - 400 mg PO DAILYP PRN Pain 08/02/23 08/02/23 History sodium chloride-aloe vera nasal 1 spray intranasal NEEDED PRN 08/02/23 08/02/23 History spray ([place] Saline Gel nasal spray) Drying And Crusting Inside The Nose New Prescriptions to Start Prescriptions: Allergies Allergy/AdvReac Type Severity Reaction Status Date / Time Sulfa (Sulfonamide Allergy Unknown Verified 07/05/23 12:04 Antibiotics) [SULFA (SULFONAMIDE ANTIBIOTICS)] Ortho Exam (Inpt) Vital signs and Labs for Last 24 Hours: Temp Pulse Resp BP Pulse Ox O2 Del Method O2 Flow Rate 98.2 F 75 19 115/80 91 L Nasal Cannula 2 08/02/23 11:51 08/02/23 11:51 08/02/23 11:51 08/02/23 11:51 08/02/23 11:51 08/02/23 11:51 08/02/23 11:51 Laboratory Results - last 24 hr 08/01/23 15:39: Procalcitonin 2.33 H 08/01/23 17:42: WBC 11.7 H, RBC 4.76, Hgb 14.2, Hct 43.6, MCV 91.5, MCH 29.9, MCHC 32.7, RDW 15.8, Plt Count 108 L, MPV 10.4, Neut % (Auto) 88.5 H, Lymph % (Auto) 8.0 L, [place] % (Auto) 3.1, Eos % (Auto) 0.1, Baso % (Auto) 0.3, Neut # (Auto) 10.4 H, Lymph # (Auto) 0.9, [place] # (Auto) 0.4, Eos # (Auto) 0.0, Baso # (Auto) 0.0, Total Counted 100, Neutrophils % (Manual) 75, Band Neutrophils % 9.0 H, Lymphocytes % (Manual) 6 L, Monocytes % (Manual) 10 H, Platelet Estimate Slight decrease, RBC Morphology Normal, Anisocytosis 2+, PT 11.2, INR 1.04, APTT 33.0 H, Fibrinogen 398 H, Sodium 133 L, Potassium 2.9 L*, Chloride 98, Carbon Dioxide 29, Anion Gap 8.9, BUN 27 H, Creatinine 0.80, Estimated Creat Clear 38, Estimated GFR 71, Est GFR ( Amer) 85, Glucose 115 H, Lactate 2.1, Calcium 8.4, Total Bilirubin 2.6 H, AST 89 H, ALT 48, Alkaline Phosphatase 112, Lactate Dehydrogenase 1313 H, Total Creatine Kinase 3022 H*, Total Protein 6.8, Albumin 3.7, Globulin 3.1, Albumin/Globulin Ratio 1.2 08/01/23 17:46: Magnesium 2.1, Troponin I 0.16 H 08/01/23 17:48: VBG pH 7.36, VBG pCO2 43.9, VBG pO2 33.9, VBG HCO3 24.2, VBG Total CO2 25.5, VBG O2 Saturation 64.1, VBG Base Excess -1.3 08/01/23 20:53: Troponin I 0.19 H 08/01/23 22:23: Lactate 1.4 08/01/23 22:58: Urine Color Yellow, Urine Appearance Clear, Urine pH 6.5, Ur Specific [place] <= 1.005, Urine Protein Negative, Urine Glucose (UA) Negative, Urine Ketones Trace, Urine Blood 3+, Urine Nitrate Negative, Urine Bilirubin Negative, Urine Urobilinogen 0.2, Ur Leukocyte Esterase Negative, Urine RBC Occasional, Urine WBC None, Ur Squamous Epith Cells None, Urine Bacteria None 08/01/23 23:05: SARS-CoV-2 (PCR) Detected A, Influenza A Untype (PCR) Not detected, Influenza Type B (PCR) Not detected 08/02/23 00:20: Troponin I 0.16 H 08/02/23 06:43: WBC 9.1, RBC 4.36, Hgb 13.4, Hct 40.5, MCV 93.0, MCH 30.7, MCHC 33.0, RDW 15.9, Plt Count 142 D, MPV 8.8, Neut % (Auto) 87.5 H, Lymph % (Auto) 9.3 L, [place] % (Auto) 3.0, Eos % (Auto) 0.0 L, Baso % (Auto) 0.2, Neut # (Auto) 7.9 H, Lymph # (Auto) 0.8, [place] # (Auto) 0.3, Eos # (Auto) 0.0, Baso # (Auto) 0.0, Total Counted 100, Neutrophils % (Manual) 87 H, Lymphocytes % (Manual) 10, Monocytes % (Manual) 3, Platelet Estimate Normal, RBC Morphology Normal, Sodium 138, Potassium 4.4 D, Chloride 108 H, Carbon Dioxide 23, Anion Gap 11.4, BUN 18 H D, Creatinine 0.80, Estimated Creat Clear 38, Estimated GFR 71, Est GFR ( Amer) 85, Glucose 86 D, Calcium 7.9 L, Magnesium 2.1, Total Bilirubin 1.1, AST 50 H D, ALT 35 D, Alkaline Phosphatase 109, Total Protein 6.0 L, Albumin 3.1 L D, Globulin 2.9, Albumin/Globulin Ratio 1.1 I & O for Labs for Last 24 Hours: Intake & Output 07/30/23 07/31/23 08/01/23 08/02/23 23:59 23:59 23:59 23:59 Intake Total 826 / 826 Output Total 1200 / 1200 100 / 100 Balance -1200 / -1200 726 / 726 Weight 104 lb 82 lb Additional findings:: Patient sitting in chair comfortably. Able to move bilateral lower extremities X-rays show minimally displaced sacral ala fracture on the right inferior pubic superior pubic ramus fractures on the right Results Labs 08/02/23 06:43 08/02/23 06:43 Labs: Abnormal lab results 08/01/23 08/01/23 08/01/23 Range/Units 15:39 17:42 17:46 WBC 11.7 H (4.8-10.8) K/mm3 Plt Count 108 L (142-424) K/mm3 Neut % (Auto) 88.5 H (37.0-80.0) % Lymph % (Auto) 8.0 L (10-50) % Eos % (Auto) (0.1-12.0) % Neut # (Auto) 10.4 H (1.8-7.8) K/mm3 Neutrophils % (Manual) (42-76) % Band Neutrophils % 9.0 H (0-8) Lymphocytes % (Manual) 6 L (10-50) % Monocytes % (Manual) 10 H (2-9) % APTT 33.0 H (22.8-30.6) seconds Fibrinogen 398 H (229.9-363.5) mg/dL Sodium 133 L (136-145) mmol/L Potassium 2.9 L* (3.5-5.1) mmoL/L Chloride (98-107) mmol/L BUN 27 H (7-17) mg/dl Glucose 115 H (74-100) mg/dl Calcium (8.4-10.2) mg/dl Total Bilirubin 2.6 H (0.2-1.3) mg/dl AST 89 H (14-36) U/L Lactate Dehydrogenase 1313 H (313-618) U/L Total Creatine Kinase 3022 H* (30-135) U/L Troponin I 0.16 H (0.00-0.034) ng/ml Total Protein (6.3-8.2) g/dl Albumin (3.5-5.0) g/dl Procalcitonin 2.33 H (0.0-2.0) ng/mL SARS-CoV-2 (PCR) (NotDetected) 08/01/23 08/01/23 08/02/23 Range/Units 20:53 23:05 00:20 WBC (4.8-10.8) K/mm3 Plt Count (142-424) K/mm3 Neut % (Auto) (37.0-80.0) % Lymph % (Auto) (10-50) % Eos % (Auto) (0.1-12.0) % Neut # (Auto) (1.8-7.8) K/mm3 Neutrophils % (Manual) (42-76) % Band Neutrophils % (0-8) Lymphocytes % (Manual) (10-50) % Monocytes % (Manual) (2-9) % APTT (22.8-30.6) seconds Fibrinogen (229.9-363.5) mg/dL Sodium (136-145) mmol/L Potassium (3.5-5.1) mmoL/L Chloride (98-107) mmol/L BUN (7-17) mg/dl Glucose (74-100) mg/dl Calcium (8.4-10.2) mg/dl Total Bilirubin (0.2-1.3) mg/dl AST (14-36) U/L Lactate Dehydrogenase (313-618) U/L Total Creatine Kinase (30-135) U/L Troponin I 0.19 H 0.16 H (0.00-0.034) ng/ml Total Protein (6.3-8.2) g/dl Albumin (3.5-5.0) g/dl Procalcitonin (0.0-2.0) ng/mL SARS-CoV-2 (PCR) Detected A (NotDetected) 08/02/23 Range/Units 06:43 WBC (4.8-10.8) K/mm3 Plt Count (142-424) K/mm3 Neut % (Auto) 87.5 H (37.0-80.0) % Lymph % (Auto) 9.3 L (10-50) % Eos % (Auto) 0.0 L (0.1-12.0) % Neut # (Auto) 7.9 H (1.8-7.8) K/mm3 Neutrophils % (Manual) 87 H (42-76) % Band Neutrophils % (0-8) Lymphocytes % (Manual) (10-50) % Monocytes % (Manual) (2-9) % APTT (22.8-30.6) seconds Fibrinogen (229.9-363.5) mg/dL Sodium (136-145) mmol/L Potassium (3.5-5.1) mmoL/L Chloride 108 H (98-107) mmol/L BUN 18 H D (7-17) mg/dl Glucose (74-100) mg/dl Calcium 7.9 L (8.4-10.2) mg/dl Total Bilirubin (0.2-1.3) mg/dl AST 50 H D (14-36) U/L Lactate Dehydrogenase (313-618) U/L Total Creatine Kinase (30-135) U/L Troponin I (0.00-0.034) ng/ml Total Protein 6.0 L (6.3-8.2) g/dl Albumin 3.1 L D (3.5-5.0) g/dl Procalcitonin (0.0-2.0) ng/mL SARS-CoV-2 (PCR) (NotDetected) H & H 08/01/23 08/02/23 Range/Units 17:42 06:43 Hgb 14.2 13.4 (12.2-16.2) g/dL Hct 43.6 40.5 (37.0-47.0) % Coagulation 08/01/23 Range/Units 17:42 INR 1.04 (0.9-1.1) All other labs normal. Assessment and Plan *Assessment and plan (1) Fracture of right superior pubic ramus: Status: Acute Category: Medical Code(s): S32.511A - Fracture of superior rim of right pubis, initial encounter for closed fracture (2) Fracture of ramus of right pubis: Status: Acute Category: Medical Code(s): S32.591A - Other specified fracture of right pubis, initial encounter for closed fracture Plan I reviewed the x-rays and discussion with the patient and her granddaughter. Fractures are nonoperative in nature. Plan is for rehabilitation and Feliz work. This is appropriate given her current living status. No operative intervention necessary for the fractures there will be a long process over 8 to 12 weeks to heal the fractures pain control and therapy as tolerated.
[2023-08-02] MEDS: FLUTICASONE/UMECLIDIN/VILANTER 200/62.5/25MCG INHALER 1 PUFF IH (13:10)
--- NOTE | 2023-08-02 16:08 | EXP.PN ---
Subjective *Date: 08/02/23 *Time: 16:08 Interval history: patient was seen and evaluated at the bedside. she has mild SOB at rest she appears weak and frail, denies chest pain,nausea, vomiting, abdominal pain. Exam Data for Last 24 hours Vital signs and Labs for Last 24 Hours: Temp Pulse Resp BP Pulse Ox O2 Del Method O2 Flow Rate 98.4 F 78 16 127/80 93 L Nasal Cannula 2 08/02/23 15:50 08/02/23 15:50 08/02/23 15:50 08/02/23 15:50 08/02/23 15:50 08/02/23 15:50 08/02/23 15:50 Laboratory Results - last 24 hr 08/01/23 15:39: Procalcitonin 2.33 H 08/01/23 17:42: WBC 11.7 H, RBC 4.76, Hgb 14.2, Hct 43.6, MCV 91.5, MCH 29.9, MCHC 32.7, RDW 15.8, Plt Count 108 L, MPV 10.4, Neut % (Auto) 88.5 H, Lymph % (Auto) 8.0 L, [place] % (Auto) 3.1, Eos % (Auto) 0.1, Baso % (Auto) 0.3, Neut # (Auto) 10.4 H, Lymph # (Auto) 0.9, [place] # (Auto) 0.4, Eos # (Auto) 0.0, Baso # (Auto) 0.0, Total Counted 100, Neutrophils % (Manual) 75, Band Neutrophils % 9.0 H, Lymphocytes % (Manual) 6 L, Monocytes % (Manual) 10 H, Platelet Estimate Slight decrease, RBC Morphology Normal, Anisocytosis 2+, PT 11.2, INR 1.04, APTT 33.0 H, Fibrinogen 398 H, Sodium 133 L, Potassium 2.9 L*, Chloride 98, Carbon Dioxide 29, Anion Gap 8.9, BUN 27 H, Creatinine 0.80, Estimated Creat Clear 38, Estimated GFR 71, Est GFR ( Amer) 85, Glucose 115 H, Lactate 2.1, Calcium 8.4, Total Bilirubin 2.6 H, AST 89 H, ALT 48, Alkaline Phosphatase 112, Lactate Dehydrogenase 1313 H, Total Creatine Kinase 3022 H*, Total Protein 6.8, Albumin 3.7, Globulin 3.1, Albumin/Globulin Ratio 1.2 08/01/23 17:46: Magnesium 2.1, Troponin I 0.16 H 08/01/23 17:48: VBG pH 7.36, VBG pCO2 43.9, VBG pO2 33.9, VBG HCO3 24.2, VBG Total CO2 25.5, VBG O2 Saturation 64.1, VBG Base Excess -1.3 08/01/23 20:53: Troponin I 0.19 H 08/01/23 22:23: Lactate 1.4 08/01/23 22:58: Urine Color Yellow, Urine Appearance Clear, Urine pH 6.5, Ur Specific [place] <= 1.005, Urine Protein Negative, Urine Glucose (UA) Negative, Urine Ketones Trace, Urine Blood 3+, Urine Nitrate Negative, Urine Bilirubin Negative, Urine Urobilinogen 0.2, Ur Leukocyte Esterase Negative, Urine RBC Occasional, Urine WBC None, Ur Squamous Epith Cells None, Urine Bacteria None 08/01/23 23:05: SARS-CoV-2 (PCR) Detected A, Influenza A Untype (PCR) Not detected, Influenza Type B (PCR) Not detected 08/02/23 00:20: Troponin I 0.16 H 08/02/23 06:43: WBC 9.1, RBC 4.36, Hgb 13.4, Hct 40.5, MCV 93.0, MCH 30.7, MCHC 33.0, RDW 15.9, Plt Count 142 D, MPV 8.8, Neut % (Auto) 87.5 H, Lymph % (Auto) 9.3 L, [place] % (Auto) 3.0, Eos % (Auto) 0.0 L, Baso % (Auto) 0.2, Neut # (Auto) 7.9 H, Lymph # (Auto) 0.8, [place] # (Auto) 0.3, Eos # (Auto) 0.0, Baso # (Auto) 0.0, Total Counted 100, Neutrophils % (Manual) 87 H, Lymphocytes % (Manual) 10, Monocytes % (Manual) 3, Platelet Estimate Normal, RBC Morphology Normal, Sodium 138, Potassium 4.4 D, Chloride 108 H, Carbon Dioxide 23, Anion Gap 11.4, BUN 18 H D, Creatinine 0.80, Estimated Creat Clear 38, Estimated GFR 71, Est GFR ( Amer) 85, Glucose 86 D, Calcium 7.9 L, Magnesium 2.1, Total Bilirubin 1.1, AST 50 H D, ALT 35 D, Alkaline Phosphatase 109, Total Protein 6.0 L, Albumin 3.1 L D, Globulin 2.9, Albumin/Globulin Ratio 1.1 I & O for Last 24 hours: Intake & Output 07/30/23 07/31/23 08/01/23 08/02/23 23:59 23:59 23:59 23:59 Intake Total 1066 / 1066 Output Total 1200 / 1200 100 / 100 Balance -1200 / -1200 966 / 966 Weight 47.174 kg 37.195 kg Constitutional Constitutional: no acute distress *Routine HEENT Exam Head: Present normocephalic Eye: Present EOMI and PERRL ENT: Present mucous membranes moist *Routine Neck Exam Neck: Present supple; Absent lymphadenopathy *Routine Respiratory Exam Respiratory: Present distant breath sounds and diminished air movement *Routine Cardiovascular Exam Cardiovascular: Present RRR *Routine Abdominal Exam Abdominal: Present soft and normoactive bowel sounds; Absent tenderness *Routine Extremities Exam Extremities: Absent cyanosis, clubbing or edema *Routine Skin Exam Skin: Present warm; Absent rash *Routine Neurological Exam Neurological: Present alert and oriented X3 Assessment and Plan *Assessment and plan (1) Sepsis: Status: Acute Qualifiers: Sepsis type: sepsis due to unspecified organism Sepsis acute organ dysfunction status: with acute organ dysfunction Severe sepsis acute organ dysfunction type: acute respiratory failure Acute respiratory failure type: with hypoxia Severe sepsis shock status: without septic shock Qualified Code(s): A41.9 - Sepsis, unspecified organism; R65.20 - Severe sepsis without septic shock; J96.01 - Acute respiratory failure with hypoxia Category: Medical Code(s): A41.9 - Sepsis, unspecified organism (2) Pneumonia due to COVID-19 virus: Status: Acute Category: Medical Code(s): U07.1 - COVID-19; J12.82 - Pneumonia due to coronavirus disease 2019 (3) Pelvis fracture: Status: Acute Qualifiers: Encounter type: initial encounter Pelvic bone location: multiple parts Fracture type: closed Fracture alignment: without disruption of pelvic ring Qualified Code(s): S32.82XA - Multiple fractures of pelvis without disruption of pelvic ring, initial encounter for closed fracture Category: Medical Code(s): S32.9XXA - Fracture of unspecified parts of lumbosacral spine and pelvis, initial encounter for closed fracture (4) Elevated CK-MB level: Status: Acute Category: Medical Code(s): R74.8 - Abnormal levels of other serum enzymes (5) Hypokalemia: Status: Acute Category: Medical Code(s): E87.6 - Hypokalemia (6) Nasal septal deviation: Status: Acute Category: Medical Code(s): J34.2 - Deviated nasal septum (7) Multiple abrasions: Status: Acute Category: Medical Code(s): T07.XXXA - Unspecified multiple injuries, initial encounter (8) Degenerative joint disease (DJD) of lumbar spine: Status: Chronic Qualifiers: Spinal osteoarthritis complication: unspecified spinal osteoarthritis Qualified Code(s): M47.816 - Spondylosis without myelopathy or radiculopathy, lumbar region Category: Medical Code(s): M47.816 - Spondylosis without myelopathy or radiculopathy, lumbar region (9) COPD (chronic obstructive pulmonary disease): Status: Acute Qualifiers: COPD type: unspecified COPD Qualified Code(s): J44.9 - Chronic obstructive pulmonary disease, unspecified Category: Medical Code(s): J44.9 - Chronic obstructive pulmonary disease, unspecified (10) Lung nodule seen on imaging study: Status: Acute Category: Medical Code(s): R91.1 - Solitary pulmonary nodule Plan 73-year-old female PMHx of COPD, HTN lung nodule, DJD, smoker who was brought in by EMS to the emergency department for evaluation of multiple falls and being found down for an undetermined period of time. -Sepsis with acute hypoxic respiratory failure secondary to pneumonia and COVID-positive: Remdesivir started. Pharmacy to dose On Zithromax and ceftriaxone oxygen support Blood cultures - pending -Pelvic fracture multiple sites status post fall. CK elevated Hyperkalemia nasal Septal deviation Would to be abrasion skin tear and generalized ecchymosis Orthopedic consult - no operative need per ortho, PT OT consulted Wound care Pain management Echocardiogram - pending -Other chronic condition: DJD, hypertension, COPD, history of solitary nodule: Resume home medication nebulizer regimen Pulmonology on board -Current smoker On nicotine patch. Heparin for DVT prophylaxis. DNR
--- NOTE | 2023-08-02 17:45 | PC.NURSE ---
A&OX4. HOWEVER DOES HAVE INTERMITTENT CONFUSION AT TIMES. TOLERATING 4LNC WELL. HAVE NOT BEEN ABLE TO WEAN PT THIS SHIFT. DID GET UP TO CHAIR WITH PT, BUT WAS A TOTAL ASSIST. F/C PRESENT, DRAINING YELLOW URINE, ADEQUATE U/O. NO BM THIS SHIFT. PT TOLERATED NEW IV INSERTION THIS SHIFT. GRANDDAUGHTER AT BEDSIDE T/O SHIFT, VERY HELPFUL AND KNOWLEDGEABLE ABOUT PT. PT HAS C/O LEFT HIP PAIN MULTIPLE TIMES, TX PER AUG. EFFECTIVENESS NOTED. NICOTINE PATCH APPLIED. NO OTHER NEEDS NOTED AT THIS TIME, IN PRECAUTIONS FOR COVID. VSS.
[2023-08-02] MEDS: AZITHROMYCIN 500 MG in 0.9 % SODIUM CHLORIDE 250 ML 250 MG IV (18:10)
[2023-08-02] MEDS: MONTELUKAST SODIUM 10MG TAB 10 MG PO (18:10)
[2023-08-02] MEDS: AMITRIPTYLINE 25MG TABLET 25 MG PO (21:16)
[2023-08-02] MEDS: HEPARIN SODIUM 5,000 UNIT/ML VIAL 5000 UNIT SQ (21:17)
[2023-08-02] MEDS: PANTOPRAZOLE 40MG TABLET 40 MG PO (21:17)
[2023-08-02] MEDS: CEFTRIAXONE SODIUM 1 GM in 0.9 % SODIUM CHLORIDE 50 ML IV (21:19)
[2023-08-02] MEDS: 0.9 % SODIUM CHLORIDE 1000ML 1,000 ML 50 ML IV (22:30)
[2023-08-03] VITALS (8 sets, daily range): BP systolic 115–135; BP diastolic 62–80; PULSE 62–109; RESP 17–22; TEMP 36.5–36.7; O2SAT 89–98; BMI 15.0
--- NOTE | 2023-08-03 00:05 | PC.NURSE ---
recieved report from Rai rust took over care at [id number]. agree with pervious nurses assessment
[2023-08-03] MEDS: ALPRAZolam 0.5MG TABLET 0.5 MG PO ×3 (00:08→19:40)
--- NOTE | 2023-08-03 05:27 | PC.NURSE ---
Since acquiring the patient and getting the patient pain under control the patient has been able to rest the end of the shift. Patient did state she normlly uses a cream for her neuropathy but did not have it with her and that her granddaughter is going to bring it in today. Patient remains with a rome due to being immobile from the fractures. Patient has not had any other issues this shift.
[2023-08-03] MEDS: LEVOTHYROXINE 25MCG (0.025MG) TAB 25 MCG PO (06:01)
[2023-08-03] MEDS: FLUTICASONE/UMECLIDIN/VILANTER 200/62.5/25MCG INHALER 1 PUFF IH (06:35)
[2023-08-03] MEDS: MORPHINE 4MG/ML SYRINGE 4 MG IV ×3 (06:51→15:47)
[2023-08-03] MEDS: guaiFENesin 600 MG TAB.ER.12H PO ×2 (08:04→20:26)
[2023-08-03] MEDS: ACETAMINOPHEN 325MG TAB 650 MG PO (08:04)
[2023-08-03] MEDS: METOPROLOL SUCCINATE XL 50MG TABLET 50 MG PO (08:04)
[2023-08-03] MEDS: LISINOPRIL 20MG TABLET 20 MG PO (08:04)
[2023-08-03] MEDS: AMLODIPINE 10MG TABLET 10 MG PO (08:05)
[2023-08-03] MEDS: LORATADINE 10MG TABLET 10 MG PO (08:05)
[2023-08-03] MEDS: HEPARIN SODIUM 5,000 UNIT/ML VIAL 5000 UNIT SQ ×2 (08:05→20:26)
[2023-08-03] MEDS: DOCUSATE SODIUM 100 MG CAPSULE PO (08:05)
[2023-08-03 08:19] LABS: Myoglobin 516 ng/mL (25-58)
[2023-08-03] MEDS: HYDROCODONE/APAP 5/325 MG TABLET 1 TAB PO ×2 (10:02→22:10)
[2023-08-03] MEDS: REMDESIVIR 100 MG in 0.9 % SODIUM CHLORIDE 100 ML IV (10:03)
--- NOTE | 2023-08-03 10:04 | EXP.PULM.PN ---
Subjective *Date: 08/03/23 *Time: 12:36 Interval history: No acute respiratory events overnight. Patient admits continued improvement in her respiratory symptoms. Pulmonology Exam Inpatient Vital signs and Labs for Last 24 Hours: Temp Pulse Resp BP Pulse Ox O2 Del Method O2 Flow Rate 97.9 F 101 H 19 127/71 97 Nasal Cannula 4 08/03/23 08:00 08/03/23 08:00 08/03/23 08:00 08/03/23 08:00 08/03/23 08:00 08/03/23 08:11 08/03/23 08:11 Laboratory Results - last 24 hr 08/01/23 20:53: Myoglobin 516 H I & O for Labs for Last 24 Hours: Intake & Output 07/31/23 08/01/23 08/02/23 08/03/23 23:59 23:59 23:59 23:59 Intake Total 1306 / 1406 340 / 340 Output Total 1200 / 1200 1500 / 1500 1600 / 1600 Balance -1200 / -1200 -194 / -94 -1260 / -1260 Weight 104 lb 82 lb 82 lb 0.015 oz Constitutional: Present severe distress Head: Present normocephalic and atraumatic ENT: Present normal exam, normal oropharynx and mucous membranes moist Neck: Present normal inspection and full ROM Respiratory: Present respiratory distress, wheezes, crackles and diminished air movement; Absent able to speak in complete sentences Cardiac: Present S1/S2, Tachycardia and radial pulses present GI: Present soft and distention; Absent tenderness or guarding Rectal (female): Present deferred (female): Present deferred Skin: Present intact; Absent cyanosis or jaundice Neuro: Present alert, awake and oriented x 3 Extremities: Present normal inspection; Absent clubbing or cyanosis Psychiatric: Present normal affect and cooperative Assessment and Plan *Assessment and plan (1) Pneumonia due to COVID-19 virus: Status: Acute Category: Medical Code(s): U07.1 - COVID-19; J12.82 - Pneumonia due to coronavirus disease 2019 (2) Acute respiratory failure with hypoxia: Status: Acute Category: Medical Code(s): J96.01 - Acute respiratory failure with hypoxia Plan Ms. Tate is a 73-year-old female current smoker greater than 30 PPD carries a diagnosis of COPD on Trelegy 100 inhaler at home, not using oxygen supplementation at baseline had 3 vaccinations for COVID-19 pneumonia had a sick contact, neighbor tested positive for COVID-19 pneumonia had noted worsening respiratory's for the last 1 week followed by multiple falls and presented to the ER. CTA upon admission no evidence of pulmonary embolism but bilateral subpleural patchy airspace disease/ILD. Emphysematous changes also noted. The noted subpleural changes are new from his CT chest from 07/24/2023 COVID-19 PCR resulted positive. Patient was initiated on ceftriaxone azithromycin along with remdesivir upon admission. On initial examination patient appeared to be in severe respiratory distress. Bilateral diffuse wheezing noted. On 4 L nasal cannula oxygen supplementation with saturations at 93%. Interval update: No acute respiratory events overnight. Improving respiratory status and oxygen garments. This morning on 5 L saturating 98% will wean to 2 L. Will follow. She otherwise continued to receive remdesivir and antibiotics. Plan: Continue remdesivir x 5 days or untill discharge Continue Trelegy 100 inhaler along with albuterol inhaler/DuoNebs every 6 hours on as-needed basis Continue oxygen supplementation to maintain O2 saturation below 90% and above Continue ceftriaxone azithromycin x 5 days pending culture results, Abx can be weaned to cefdinir upon discharge Continue Prednisone 40 mg daily oral x 5 days # Thank you for involving pulmonary in this patient care. Will continue to follow.
[2023-08-03] MEDS: NICOTINE 21MG/24HR PATCH 21 MG TD (10:10)
[2023-08-03 11:13] LABS: Haptoglobin <10 mg/dL (42-346)
--- NOTE | 2023-08-03 13:12 | PC.NURSE ---
Pt. weaned down to 2L NC and an hour later sats in the middle 80's. O2 3L NC sats upper 80's. O2 now back on 4L NC sats 92%.
[2023-08-03] MEDS: IPRATROPIUM/ALBUTEROL 3 ML NEB IH (14:15)
[2023-08-03] MEDS: AZITHROMYCIN 250MG TABLET 500 MG PO (15:48)
--- NOTE | 2023-08-03 18:38 | EXP.PN ---
Subjective *Date: 08/03/23 *Time: 18:38 Interval history: patient was seen and evaluated at the bedside. she appears weak and frail, denies chest pain,nausea, vomiting, abdominal pain. Exam Data for Last 24 hours Vital signs and Labs for Last 24 Hours: Temp Pulse Resp BP Pulse Ox O2 Del Method O2 Flow Rate 98.0 F 80 19 125/70 96 Nasal Cannula 4 08/03/23 15:32 08/03/23 16:00 08/03/23 15:32 08/03/23 15:32 08/03/23 15:32 08/03/23 17:07 08/03/23 17:07 Laboratory Results - last 24 hr 08/01/23 20:53: Haptoglobin <10 L, Myoglobin 516 H I & O for Last 24 hours: Intake & Output 07/31/23 08/01/23 08/02/23 08/03/23 23:59 23:59 23:59 23:59 Intake Total 1306 / 1406 580 / 580 Output Total 1200 / 1200 1500 / 1500 2700 / 2700 Balance -1200 / -1200 -194 / -94 -2120 / -2120 Weight 47.174 kg 37.195 kg 37.195 kg Constitutional Constitutional: no acute distress *Routine HEENT Exam Head: Present normocephalic Eye: Present EOMI and PERRL ENT: Present mucous membranes moist *Routine Neck Exam Neck: Present supple; Absent lymphadenopathy *Routine Respiratory Exam Respiratory: Present distant breath sounds and diminished air movement *Routine Cardiovascular Exam Cardiovascular: Present RRR *Routine Abdominal Exam Abdominal: Present soft and normoactive bowel sounds; Absent tenderness *Routine Extremities Exam Extremities: Absent cyanosis, clubbing or edema *Routine Skin Exam Skin: Present warm; Absent rash *Routine Neurological Exam Neurological: Present alert and oriented X3 Assessment and Plan *Assessment and plan (1) Sepsis: Status: Acute Qualifiers: Sepsis type: sepsis due to unspecified organism Sepsis acute organ dysfunction status: with acute organ dysfunction Severe sepsis acute organ dysfunction type: acute respiratory failure Acute respiratory failure type: with hypoxia Severe sepsis shock status: without septic shock Qualified Code(s): A41.9 - Sepsis, unspecified organism; R65.20 - Severe sepsis without septic shock; J96.01 - Acute respiratory failure with hypoxia Category: Medical Code(s): A41.9 - Sepsis, unspecified organism (2) Pneumonia due to COVID-19 virus: Status: Acute Category: Medical Code(s): U07.1 - COVID-19; J12.82 - Pneumonia due to coronavirus disease 2019 (3) Pelvis fracture: Status: Acute Qualifiers: Encounter type: initial encounter Pelvic bone location: multiple parts Fracture type: closed Fracture alignment: without disruption of pelvic ring Qualified Code(s): S32.82XA - Multiple fractures of pelvis without disruption of pelvic ring, initial encounter for closed fracture Category: Medical Code(s): S32.9XXA - Fracture of unspecified parts of lumbosacral spine and pelvis, initial encounter for closed fracture (4) Elevated CK-MB level: Status: Acute Category: Medical Code(s): R74.8 - Abnormal levels of other serum enzymes (5) Hypokalemia: Status: Acute Category: Medical Code(s): E87.6 - Hypokalemia (6) Nasal septal deviation: Status: Acute Category: Medical Code(s): J34.2 - Deviated nasal septum (7) Multiple abrasions: Status: Acute Category: Medical Code(s): T07.XXXA - Unspecified multiple injuries, initial encounter (8) Degenerative joint disease (DJD) of lumbar spine: Status: Chronic Qualifiers: Spinal osteoarthritis complication: unspecified spinal osteoarthritis Qualified Code(s): M47.816 - Spondylosis without myelopathy or radiculopathy, lumbar region Category: Medical Code(s): M47.816 - Spondylosis without myelopathy or radiculopathy, lumbar region (9) COPD (chronic obstructive pulmonary disease): Status: Acute Qualifiers: COPD type: unspecified COPD Qualified Code(s): J44.9 - Chronic obstructive pulmonary disease, unspecified Category: Medical Code(s): J44.9 - Chronic obstructive pulmonary disease, unspecified (10) Lung nodule seen on imaging study: Status: Acute Category: Medical Code(s): R91.1 - Solitary pulmonary nodule Plan 73-year-old female PMHx of COPD, HTN lung nodule, DJD, smoker who was brought in by EMS to the emergency department for evaluation of multiple falls and being found down for an undetermined period of time. -Sepsis with acute hypoxic respiratory failure secondary to pneumonia and COVID-positive: - improving Remdesivir started. Pharmacy to dose On Zithromax and ceftriaxone oxygen support Blood cultures - pending -Pelvic fracture multiple sites status post fall. CK elevated Hyperkalemia nasal Septal deviation Would to be abrasion skin tear and generalized ecchymosis Orthopedic consult - no operative need per ortho, PT OT consulted Wound care Pain management Echocardiogram - pending -Other chronic condition: DJD, hypertension, COPD, history of solitary nodule: Resume home medication nebulizer regimen Pulmonology on board -Current smoker On nicotine patch. Heparin for DVT prophylaxis. DNR likely DC 1-2 days, pending placement
[2023-08-03] MEDS: CEFTRIAXONE SODIUM 1 GM in 0.9 % SODIUM CHLORIDE 50 ML IV (18:52)
[2023-08-03] MEDS: PANTOPRAZOLE 40MG TABLET 40 MG PO (20:26)
[2023-08-03] MEDS: AMITRIPTYLINE 25MG TABLET 25 MG PO (20:26)
[2023-08-04] VITALS: BP 113/73; PULSE 70; PULSE 73; RESP 18; TEMP 36.3; O2SAT 91
[2023-08-04 04:00] VITALS: BP 123/78; PULSE 60; PULSE 74; RESP 18; TEMP 36.6; O2SAT 91; BMI 15.9
--- NOTE | 2023-08-04 05:30 | PC.NURSE ---
Patient has had a decent night. Once we got the patient anxiety and pain under control the patient was able to rest must better. The patient was repositioned in a comfortable spot and was able to fall asleep. Patient remains with a Hines due to her fractures. Patient did have a bout of confusion early in the shift not knowing where she was at, but eas easily reoriented and has remained AxO x4. no other issues arose through the shift
[2023-08-04] MEDS: HYDROCODONE/APAP 5/325 MG TABLET 1 TAB PO ×2 (06:18→13:35)
[2023-08-04] MEDS: LEVOTHYROXINE 25MCG (0.025MG) TAB 25 MCG PO (06:18)
[2023-08-04] MEDS: MORPHINE 4MG/ML SYRINGE 4 MG IV ×2 (07:09→11:48)
[2023-08-04 08:00] VITALS: BP 127/72; PULSE 64; PULSE 91; RESP 18; TEMP 36.6; O2SAT 90
[2023-08-04] MEDS: AMLODIPINE 10MG TABLET 10 MG PO (08:28)
[2023-08-04] MEDS: guaiFENesin 600 MG TAB.ER.12H PO (08:28)
[2023-08-04] MEDS: DOCUSATE SODIUM 100 MG CAPSULE PO (08:28)
[2023-08-04] MEDS: LORATADINE 10MG TABLET 10 MG PO (08:28)
[2023-08-04] MEDS: LISINOPRIL 20MG TABLET 20 MG PO (08:28)
[2023-08-04] MEDS: METOPROLOL SUCCINATE XL 50MG TABLET 50 MG PO (08:28)
[2023-08-04] MEDS: ALPRAZolam 0.5MG TABLET 0.5 MG PO (08:28)
[2023-08-04] MEDS: HEPARIN SODIUM 5,000 UNIT/ML VIAL 5000 UNIT SQ (08:29)
[2023-08-04 08:44] LABS: Alanine Aminotransferase 29 U/L (12-78); Albumin Level 3.3 g/dl (3.5-5.0); Albumin/Globulin Ratio 1.1 (1.1-1.8); Alkaline Phosphatase 117 U/L (38-126); Anion Gap 11.4 mEq/L (5-15); Aspartate Amino Transferase 41 U/L (14-36); Blood Urea Nitrogen 9 mg/dl (7-17); Calcium 7.9 mg/dl (8.4-10.2); Carbon Dioxide 25 mmol/L (22.0-30.0); Chloride 99 mmol/L (98-107); Creatinine Clearance Estimated 32 mL/min (50-200); Estimated Glomerular Filt Rate 121 ml/min (>60); GFR (African American) 147 ML/MIN (>60); Globulin 3.1 g/dL (1.3-3.2); Glucose 79 mg/dl (74-100); Potassium 3.4 mmoL/L (3.5-5.1); Sodium 132 mmol/L (136-145); Total Protein,Serum 6.4 g/dl (6.3-8.2)
[2023-08-04 08:50] VITALS: O2SAT 92
[2023-08-04] MEDS: FLUTICASONE/UMECLIDIN/VILANTER 200/62.5/25MCG INHALER 1 PUFF IH (08:50)
[2023-08-04] MEDS: REMDESIVIR 100 MG in 0.9 % SODIUM CHLORIDE 100 ML IV (09:35)
--- NOTE | 2023-08-04 10:56 | P.PN_ITS ---
Subjective *Date: 08/04/23 *Time: 10:57 Medical Exam Vital signs and Labs for Last 24 Hours: Vital Signs Temp Pulse Pulse Resp BP Pulse Ox O2 Del Method 08/04/23 08:50 92 L Nasal Cannula 08/04/23 08:00 91 H 08/04/23 08:00 97.9 F 64 18 127/72 90 L Nasal Cannula 08/04/23 06:59 Nasal Cannula 08/04/23 05:00 Nasal Cannula 08/04/23 04:00 98 F 74 18 123/78 91 L 08/04/23 04:00 60 08/04/23 03:00 Nasal Cannula 08/04/23 01:00 Nasal Cannula 08/04/23 00:00 70 08/04/23 00:00 97.3 F L 73 18 113/73 91 L 08/03/23 23:00 Nasal Cannula 08/03/23 20:00 100 H 08/03/23 21:00 Nasal Cannula 08/03/23 20:00 Nasal Cannula 08/03/23 20:00 97.9 F 78 17 118/79 90 L 08/03/23 16:00 80 08/03/23 17:07 Nasal Cannula 08/03/23 16:14 Nasal Cannula 08/03/23 15:32 98.0 F 109 H 19 125/70 96 Nasal Cannula 08/03/23 14:21 Nasal Cannula 08/03/23 14:16 85 08/03/23 14:16 89 08/03/23 14:16 98 Nasal Cannula 08/03/23 12:15 Nasal Cannula 08/03/23 11:33 97.9 F 103 H 18 130/75 96 Nasal Cannula O2 Flow Rate 08/04/23 08:50 5 08/04/23 08:00 08/04/23 08:00 4 08/04/23 06:59 3 08/04/23 05:00 4.5 08/04/23 04:00 08/04/23 04:00 08/04/23 03:00 5 08/04/23 01:00 5 08/04/23 00:00 08/04/23 00:00 08/03/23 23:00 5 08/03/23 20:00 08/03/23 21:00 5 08/03/23 20:00 5 08/03/23 20:00 08/03/23 16:00 08/03/23 17:07 4 08/03/23 16:14 4 08/03/23 15:32 08/03/23 14:21 4 08/03/23 14:16 08/03/23 14:16 08/03/23 14:16 4 08/03/23 12:15 2 08/03/23 11:33 5 Intake and Output 08/03/23 08/04/23 08/04/23 23:59 07:59 15:59 Intake Total 100 / 340 240 / 340 Output Total 1100 / 2700 800 / 800 Balance -1099 / -2020 -700 / -460 240 / -460 Intake: Intake, Oral Amount 100 / 340 240 / 340 Output: Output, Urine Amount 1100 / 2700 800 / 800 Other: Number of Unmeasured Voids 0 1 Weight 39.281 kg Patient Weight 08/04/23 23:59 Weight 39.281 kg Laboratory Results - last 24 hr 08/01/23 20:53: Haptoglobin <10 L 08/04/23 06:15: Sodium 132 L, Potassium 3.4 L D, Chloride 99, Carbon Dioxide 25, Anion Gap 11.4, BUN 9 D, Creatinine 0.50 L D, Estimated Creat Clear 32, Est imated GFR 121, Est GFR ( Amer) 147 D, Glucose 79, Calcium 7.9 L, Total Bilirubin 1.0, AST 41 H, ALT 29, Alkaline Phosphatase 117, Total Protein 6.4, Albumin 3.3 L, Globulin 3.1, Albumin/Globulin Ratio 1.1 I & O for Labs for Last 24 Hours: Intake & Output 08/01/23 08/02/23 08/03/23 08/04/23 23:59 23:59 23:59 23:59 Intake Total 1306 / 1406 580 / 680 340 / 340 Output Total 1200 / 1200 1500 / 1500 2700 / 2700 800 / 800 Balance -1200 / -1200 -194 / -94 -0 / -2019 -460 / -460 Weight 47.174 kg 37.195 kg 37.195 kg 39.281 kg The patient's infection will respond to the chosen ABx?: Yes Is the patient receiving the right drug, dose, and route?: Yes Could a more targeted ABx be ordered?: No (AFEBRILE, WBC WNL NOW.)
[2023-08-04] MEDS: NICOTINE 21MG/24HR PATCH 21 MG TD (12:05)
--- NOTE | 2023-08-04 12:09 | P.DS_ITS ---
General Admission date:: 08/01/23 Discharge date: 08/04/23 HPI HPI HPI: This is a 73-year-old female PMHx of COPD, HTN lung nodule, DJD, smoker who was brought in by EMS to the emergency department for evaluation of multiple falls and being found down for an undetermined period of time. Patient is tender to palpation over the bilateral hips although pelvic rock is stable and no significant orthopedic deformities are noted. Patient is awake and interactive but does not currently appear to be fully oriented. History obtained form granddaughter at bedside. Apparently patient lives by herself , and was last seen normal about 24hrs prior to admission. Per granddaughter, she started getting worried after patient did not answered phone. Therfore she called EMS. patient was found down on her back. low satting and rushed to the hospital. Patient appears to be normal sinus rhythm on the monitor at the bedside and has normal heart sounds and normal lung sounds. Patient has no meningismus signs or no evidence of focal neurologic deficit. Presented with numerous to count areas of ecchymosis small and large sores fresh and older areas of skin tears. including nose. Admitted for treatment and management. Hospital Course Hospital Course Hospital Course: Patient was seen and evaluated at the bedside on the day of discharge. Patient wishes to be discharged. All patient questions were answered and patient was given time to ask questions. Patient was discharged in stable condition. Patient understands that she can return to ER in case of any sudden changes in health. Total time spent on DC - 38 mins 73-year-old female PMHx of COPD, HTN lung nodule, DJD, smoker who was brought in by EMS to the emergency department for evaluation of multiple falls and being found down for an undetermined period of time. -Sepsis with acute hypoxic respiratory failure secondary to pneumonia and CO VID-positive: - improving DC on PO prednisone and Cefdinir 300mg BID -Pelvic fracture multiple sites status post fall. - stable, DC NH with follow up with orthopedics at DC -Other chronic condition: DJD, hypertension, COPD, history of solitary nodule: Resume home medication nebulizer regimen Pulmonology on board -Current smoker On nicotine patch. Heparin for DVT prophylaxis. DNR Exam Data for Last 24 hours Vital signs and Labs for Last 24 Hours: Temp Pulse Resp BP Pulse Ox O2 Del Method O2 Flow Rate 97.9 F 64 18 127/72 92 L Nasal Cannula 5 08/04/23 08:00 08/04/23 08:00 08/04/23 08:00 08/04/23 08:00 08/04/23 08:50 08/04/23 08:50 08/04/23 08:50 Laboratory Results - last 24 hr 08/04/23 06:15: Sodium 132 L, Potassium 3.4 L D, Chloride 99, Carbon Dioxide 25, Anion Gap 11.4, BUN 9 D, Creatinine 0.50 L D, Estimated Creat Clear 32, Estimated GFR 121, Est GFR ( Amer) 147 D, Glucose 79, Calcium 7.9 L, Total Bilirubin 1.0, AST 41 H, ALT 29, Alkaline Phosphatase 117, Total Protein 6.4, Albumin 3.3 L, Globulin 3.1, Albumin/Globulin Ratio 1.1 I & O for Last 24 hours: Intake & Output 08/01/23 08/02/23 08/03/23 08/04/23 23:59 23:59 23:59 23:59 Intake Total 1306 / 1406 580 / 680 340 / 340 Output Total 1200 / 1200 1500 / 1500 2700 / 2700 800 / 800 Balance -1200 / -1200 -194 / -94 -2120 / -2020 -460 / -460 Weight 47.174 kg 37.195 kg 37.195 kg 39.281 kg Constitutional Constitutional: no acute distress *Routine HEENT Exam Head: Present normocephalic Eye: Present EOMI and PERRL ENT: Present mucous membranes moist *Routine Neck Exam Neck: Present supple; Absent lymphadenopathy *Routine Respiratory Exam Respiratory: Present distant breath sounds and diminished air movement *Routine Cardiovascular Exam Cardiovascular: Present RRR *Routine Abdominal Exam Abdominal: Present soft and normoactive bowel sounds; Absent tenderness *Routine Extremities Exam Extremities: Absent cyanosis, clubbing or edema *Routine Skin Exam Skin: Present warm Comments: rashes and scars from recent falls *Routine Neurological Exam Neurological: Present alert and oriented X3 Results Data Completed and Pending Labs on day of discharge: Labs from last 24 hours 08/04/23 06:15 Sodium 132 L Potassium 3.4 L D Chloride 99 Carbon Dioxide 25 Anion Gap 11.4 BUN 9 D Creatinine 0.50 L D Estimated Creat Clear 32 Estimated GFR 121 Est GFR ( Amer) 147 D Glucose 79 Calcium 7.9 L Total Bilirubin 1.0 AST 41 H ALT 29 Alkaline Phosphatase 117 Total Protein 6.4 Albumin 3.3 L Globulin 3.1 Albumin/Globulin Ratio 1.1 DS: Diagnosis Discharge Diagnosis (1) Sepsis: Status: Acute Code(s): A41.9 - Sepsis, unspecified organism Qualifiers: Sepsis type: sepsis due to unspecified organism Sepsis acute organ dysfunction status: with acute organ dysfunction Severe sepsis acute organ dysfunction type: acute respiratory failure Acute respiratory failure type: with hypoxia Severe sepsis shock status: without septic shock Qualified Code(s): A41.9 - Sepsis, unspecified organism; R65.20 - Severe sepsis without septic shock; J96.01 - Acute respiratory failure with hypoxia (2) Pneumonia due to COVID-19 virus: Status: Acute Code(s): U07.1 - COVID-19; J12.82 - Pneumonia due to coronavirus disease 2019 (3) Pelvis fracture: Status: Acute Code(s): S32.9XXA - Fracture of unspecified parts of lumbosacral spine and pelvis, initial encounter for closed fracture Qualifiers: Encounter type: initial encounter Pelvic bone location: multiple parts Fracture type: closed Fracture alignment: without disruption of pelvic ring Qualified Code(s): S32.82XA - Multiple fractures of pelvis without disruption of pelvic ring, initial encounter for closed fracture (4) Elevated CK-MB level: Status: Acute Code(s): R74.8 - Abnormal levels of other serum enzymes (5) Hypokalemia: Status: Acute Code(s): E87.6 - Hypokalemia (6) Nasal septal deviation: Status: Acute Code(s): J34.2 - Deviated nasal septum (7) Multiple abrasions: Status: Acute Code(s): T07.XXXA - Unspecified multiple injuries, initial encounter (8) Degenerative joint disease (DJD) of lumbar spine: Status: Chronic Code(s): M47.816 - Spondylosis without myelopathy or radiculopathy, lumbar region Qualifiers: Spinal osteoarthritis complication: unspecified spinal osteoarthritis Qualified Code(s): M47.816 - Spondylosis without myelopathy or radiculopathy, lumbar region (9) COPD (chronic obstructive pulmonary disease): Status: Acute Code(s): J44.9 - Chronic obstructive pulmonary disease, unspecified Qualifiers: COPD type: unspecified COPD Qualified Code(s): J44.9 - Chronic obstructive pulmonary disease, unspecified (10) Lung nodule seen on imaging study: Status: Acute Code(s): R91.1 - Solitary pulmonary nodule Meds Home Medications and Allergies Home Medications Medication Instructions Recorded Confirmed Type metoprolol succinate 50 mg 50 mg PO DAILY #90 tabs 12/29/22 08/01/23 Rx tablet,extended release 24 hr (Toprol XL) amlodipine 10 mg-benazepril 20 mg 1 cap PO DAILY #90 caps 01/18/23 08/01/23 Rx capsule (Lotrel) fluticasone fur. 200 mcg-umeclid 1 inh inhalation DAILY #60 ea 03/12/23 08/01/23 Rx 62.5 mcg-vilant 25 mcg inhalat.powder (Trelegy Ellipta) pregabalin 75 mg capsule 75 mg PO Q12H #60 caps 03/21/23 08/01/23 Rx alprazolam 0.5 mg tablet 0.5 mg PO BID PRN Anxiety #60 tabs 07/05/23 08/01/23 Rx albuterol sulfate 90 mcg/actuation 2 puff inhalation Q4-6H PRN 08/01/23 08/01/23 History aerosol inhaler (Ventolin HFA) Shortness Of Breath Or Wheezing amitriptyline 25 mg tablet 25 mg PO HS 08/01/23 08/01/23 History levalbuterol HCl 1.25 mg/3 mL 1.25 mg inhalation Q6 COPD 08/01/23 08/01/23 H istory solution for nebulization levothyroxine 25 mcg tablet 25 mcg PO DAILY 08/01/23 08/01/23 History montelukast 10 mg tablet 10 mg PO DAILY 08/01/23 08/01/23 History pantoprazole 40 mg tablet,delayed 40 mg PO DAILY 08/01/23 08/01/23 History release acetaminophen 500 mg tablet 500 - 1,000 mg PO DAILYP PRN Pain 08/02/23 08/02/23 History cetirizine 10 mg tablet 10 mg PO DAILY 08/02/23 08/02/23 History guaifenesin 600 mg tablet, 600 mg PO DAILY 08/02/23 08/02/23 History extended release 12 hr (Mucinex) ibuprofen 200 mg tablet 200 - 400 mg PO DAILYP PRN Pain 08/02/23 08/02/23 History sodium chloride-aloe vera nasal 1 spray intranasal NEEDED PRN 08/02/23 08/02/23 History spray ([place] Saline Gel nasal spray) Drying And Crusting Inside The Nose cefdinir 300 mg capsule 300 mg PO BID 5 days #10 caps 08/04/23 Rx prednisone 50 mg tablet 50 mg PO DAILY 5 days #5 tabs 08/04/23 Rx New Prescriptions to Start Prescriptions: cefdinir Jamie Ding prednisone Jamie Ding Allergies Allergy/AdvReac Type Severity Reaction Status Date / Time Sulfa (Sulfonamide Allergy Unknown Verified 07/05/23 12:04 Antibiotics) [SULFA (SULFONAMIDE ANTIBIOTICS)] Discharge Plan Disposition Patient Disposition: [facility] Condition: Good Discharge Order Discharge Orders: Discharge Order (Routine); Ordered 08/04/23 Ordered By: Jamie Ding Follow up Plan Follow up with: Provider,Referral, [Primary Care Provider] - See instructions Shasha Leone MD [Physician] - 08/14/23 1:15 pm Prescriptions/Medication Reconciliation: New prednisone 50 mg tablet 50 mg PO DAILY 5 Days Qty: 5 0RF cefdinir 300 mg capsule 300 mg PO BID 5 Days Qty: 10 0RF Continued metoprolol succinate [Toprol XL] 50 mg tablet extended release 24 hr 50 mg PO DAILY Qty: 90 3RF amlodipine-benazepril [Lotrel] 10-20 mg capsule 1 cap PO DAILY Qty: 90 3RF Trelegy Ellipta 200-62.5-25 mcg blister with device 1 inh inhalation DAILY Qty: 60 10RF alprazolam 0.5 mg tablet 0.5 mg PO BID PRN (Reason: Anxiety) Qty: 60 1RF pregabalin 75 mg capsule 75 mg PO Q12H Qty: 60 2RF Rx Instructions: Pt states she takes 1 capsule as needed once a day in the morning pantoprazole 40 mg tablet,delayed release (DR/EC) 40 mg PO DAILY Rx Instructions: Take 1 Tablet by mouth once daily for acid reflux. levothyroxine 25 mcg tablet 25 mcg PO DAILY Rx Instructions: Take 1 Tablet by mouth once daily for hypothyroidism. montelukast 10 mg tablet 10 mg PO DAILY Rx Instructions: Take 1 tablet by mouth once daily levalbuterol HCl 1.25 mg/3 mL solution for nebulization 1.25 mg inhalation Q6 Rx Instructions: 1.25 mg inhaled ;INHALE CONTENTS OF 1 VIAL (3 MLS) BY NEBULIZATION EVERY 6 HOURS FOR SHORTNESS OF AIR; J44.9 for COPD and R06.02 for Shortness of breath amitriptyline 25 mg tablet 25 mg PO HS Rx Instructions: Take 1 Tablet by mouth nightly at bedtime for sleep. albuterol sulfate [Ventolin HFA] 90 mcg/actuation HFA aerosol inhaler 2 puff inhalation Q4-6H PRN (Reason: Shortness Of Breath Or Wheezing) Rx Instructions: INHALE 2 PUFFS BY MOUTH EVERY 4-6 HOURS NEEDED FOR SHORTNESS OF BREATH OR WHEEZING cetirizine 10 mg Tablet 10 mg PO DAILY acetaminophen 500 mg Tablet 500 - 1,000 mg PO DAILYP PRN (Reason: Pain) ibuprofen 200 mg Tablet 200 - 400 mg PO DAILYP PRN (Reason: Pain) [place] Saline Gel [place],Non-Aerosol 1 spray INTRANASAL NEEDED PRN (Reason: Drying And Crusting Inside The Nose) guaifenesin [Mucinex] 600 mg Tablet Extended Release 12hr 600 mg PO DAILY Problem Reconciliation Problems Reviewed?: Yes Patient Discharge Instructions ACTIVITY: Ambulate as tolerated DIET: continue same diet Patient Instructions: DI for Pelvic Fracture Providers Primary Care Provider: Provider,Referral Admit Provider: Jamie Ding Attending Provider: Jamie Ding
== END 2023-08-04 16:20 | DRG 871 ==
LOC: ER 18:23 → 2ND 23:57
PROVIDERS: Nurse Practitioner Family; Physician Assistant; Admitting Provider Internal Medicine; Emergency Provider Emergency Medicine; Visit Provider Internal Medicine
DX: A41.9 Sepsis, unspecified organism (principal); J12.82 Pneumonia due to coronavirus disease 2019; J96.01 Acute respiratory failure with hypoxia; U07.1 COVID-19; S32.511A Fracture of superior rim of right pubis, initial encounter for closed fracture; S32.82XA Multiple fractures of pelvis without disruption of pelvic ring, initial encounter for closed fracture; E87.6 Hypokalemia; J34.2 Deviated nasal septum; J44.9 Chronic obstructive pulmonary disease, unspecified; M47.816 Spondylosis without myelopathy or radiculopathy, lumbar region; F17.210 Nicotine dependence, cigarettes, uncomplicated; M16.12 Unilateral primary osteoarthritis, left hip; W19.XXXA Unspecified fall, initial encounter
CPT/HCPCS: 36415; 70450; 70496; 70498; 71275; 72125; 72128; 72131; 72192; 74174; 80053; 81001; 82550; 82803; 83010; 83605; 83615; 83735; 83874; 84145; 84484; 85007; 85025; 85384; 85610; 85730; 87040; 87636; 93005; 94640; 97110; 97140; 97163; 97166; 97530; 99291; J0131; J0456; J0696; Q9967

== ENCOUNTER 2023-10-04 09:36 | Outpatient (CLI) | payer MEDICARE, MEDICAID, SELFPAY ==
--- NOTE | 2023-10-04 09:47 | XR_ITS ---
FINAL REPORT CLINICAL HISTORY: pelvis fx fall in August of 2023 COMPARISON: CT of the pelvis dated 08/01/2023 FINDINGS: PELVIS: There is a severely displaced comminuted fracture of the superior pubic ramus and pubic symphysis, and displacement appears slightly worse than seen on the prior CT of August 01. Vascular calcifications are noted. The left pubic rami appear unremarkable. IMPRESSION: Severely displaced comminuted fracture of the superior pubic ramus and symphysis as seen on the prior CT, with displacement which appears to be somewhat worse than seen on the prior exam. Reviewed, Interpreted and Dictated by Alex Christianson MD Transcribed by Maia Maguire Authenticated and [facility]
== END 2023-10-04 23:59 | disposition home or self-care (01) ==
LOC: RAD 09:38
PROVIDERS: PCP Family Medicine; Visit Provider Orthopaedic Surgery
DX: R10.2 Pelvic and perineal pain (principal); S32.591D Other specified fracture of right pubis, subsequent encounter for fracture with routine healing
CPT/HCPCS: 72170

== ENCOUNTER 2023-12-13 09:34 | Outpatient (CLI) | payer MEDICARE, MEDICAID, SELFPAY ==
--- NOTE | 2023-12-13 09:41 | XR_ITS ---
FINAL REPORT CLINICAL HISTORY: Pelvis fx COMPARISON: 10/04/2023 FINDINGS: Pelvis A single view was obtained. There are fractures of the bilateral superior and inferior pubic rami. There are probable bilateral sacral fractures. Mild degenerative changes are present. Note is made of vascular calcification. IMPRESSION: Fractures as above. No significant change from previous. Reviewed, Interpreted and Dictated by Carloz Samayoa III, MD Transcribed by Elissa Flores Authenticated and [facility]
== END 2023-12-13 23:59 | disposition home or self-care (01) ==
LOC: RAD 09:35
PROVIDERS: PCP Family Medicine; Visit Provider Physician Assistant
DX: S32.591D Other specified fracture of right pubis, subsequent encounter for fracture with routine healing (principal); R10.2 Pelvic and perineal pain
CPT/HCPCS: 72190